=== PATIENT | male | born 1945 | race Caucasian/White ===

== ENCOUNTER → 2016-09-04 | Outpatient (CLI) | payer OTHER ==
[~2016-09-04] MED LIST: ASPCH81 PO; ASPI81TA28 PO; CARV25TA2 PO; CEFU500T16 PO; CHOL1000 PO; CITA40TA4 PO; CLOP1TAB15 PO; CLX20 PO; DOCU100C31 PO; FLV1 PO; FOLI1TAB7 PO; FRS/40 PO; HYDR0.5T PO; HYDR200T5 PO; IPRA1AER2 INH; IPRASOL4 INH; LEVO100T7 PO; LISI-725 PO; LISI10TA PO; LISI40TA PO; METH2.5T PO; MULT-506 PO; NTRGSL/4 UT; OXYC-57 PO; OXYC5TAB PO; PANT40TA PO; POTA20TA16 PO; PRED-301 PO; PRED10TA PO; SIMV20TA2 PO
--- NOTE | 2016-09-04 08:46 | DIAGNOSTIC IMAGING REPORT ---
DOUBLE CONTRAST BARIUM ESOPHAGRAM CLINICAL HISTORY: Dysphagia. Reported history of esophageal cancer with unspecified surgery. COMPARISON STUDY: No priors. TECHNIQUE: A standard air contrast barium esophagram is performed. Multiple spot images of the esophagus are acquired both upright and prone. FINDINGS: The patient swallowed barium and the barium pill without difficulty. The mucosal pattern is normal. There is no evidence of intrinsic or extrinsic mass lesion. No aspiration was seen. Mild to moderate dysmotility is seen in the distal third of the esophagus. The gastroesophageal junction distended normally. Gastroesophageal reflux was observed during the examination. There is a small to moderate hiatal hernia. Midline sternotomy wires are noted. Fluoroscopy time: 1 minute. Fluoroscopic images: 24 IMPRESSION: 1. There is no mucosal lesion identified by fluoroscopy. Correlation with the patient's oncologic history and endoscopy results will be required. 2. Gastroesophageal reflux is observed. 3. Esophageal dysmotility. 4. Hiatal hernia. Electronically signed by: Bobby Sandoval M.D. 09/04/2016 8:44 AM Dictated Date/Time: 09/04/2016 8:40 AM
== END | disposition home or self-care (01) ==
LOC: C.RAD 08:05
PROVIDERS: ATTEND Specialist
DX: R13.10 Dysphagia, unspecified (principal); K21.9 Gastro-esophageal reflux disease without esophagitis; K22.4 Dyskinesia of esophagus; K44.9 Diaphragmatic hernia without obstruction or gangrene

== ENCOUNTER → 2017-01-02 | Outpatient (CLI) | payer OTHER ==
[~2017-01-02] MED LIST changes: +CHOL1TAB42 PO; +PRED20TA PO
--- NOTE | 2017-01-02 09:32 | DIAGNOSTIC IMAGING REPORT ---
Aneurysm AORTIC ANEURYSM RETRO ABDELRAHMAN CLINICAL HISTORY: ABDOMINAL AORTIC ANEURYSM, INFRARENAL (ICD-I71.4) aneurysm TECHNIQUE: Ultrasound COMPARISON STUDY: CT dated 03/09/2016 FINDINGS: Somewhat limited exam due to the patient's large body habitus. Infrarenal abdominal aortic aneurysm having a maximum diameter of 5.4 cm. This is stable to only slightly increased in diameter compared to the prior study. Remainder the abdominal aorta is poorly seen. IMPRESSION: Infrarenal abdominal aortic aneurysm measuring 5.4 cm. This is slightly increased from the prior study of 5.2 cm and/or stable given differences in modality Electronically signed by: Boni Degroot M.D. 01/02/2017 9:30 AM Dictated Date/Time: 01/02/2017 9:26 AM
== END | disposition home or self-care (01) ==
LOC: C.ULTR 08:24
PROVIDERS: ATTEND Physician Assistant
DX: I71.4 Abdominal aortic aneurysm, without rupture (principal)

== ENCOUNTER 2017-01-21 15:13 | Inpatient (IN) | payer OTHER ==
[2017-01-21] VITALS (19 sets, daily range): BP systolic 124–180; BP diastolic 57–79; PULSE 41–54; TEMP 34.6–34.8; O2SAT 92–100; Ht 180.3 cm; Wt 128.0 kg
[~2017-01-21] VITALS: Ht 180.3 cm; Wt 128.0 kg
[~2017-01-21 15:13] MED LIST changes: -ASPI81TA28 PO; -CEFU500T16 PO; -CHOL1000 PO; -CHOL1TAB42 PO; -CITA40TA4 PO; -CLOP1TAB15 PO; -FOLI1TAB7 PO; -HYDR200T5 PO; -IPRASOL4 INH; -LISI-725 PO; -LISI40TA PO; -METH2.5T PO; -NTRGSL/4 UT; -OXYC-57 PO; -PANT40TA PO; -PRED10TA PO; -PRED20TA PO; -SIMV20TA2 PO; +VISIPAQUE IV PRN
[2017-01-21] MEDS ORDERED: SODIUM CHLORIDE 0.9% 1000ML 1,000 ML IV STA ×2 (15:21→16:42)
[2017-01-21] MEDS ORDERED: OPTIRAY 320 IV PRN (15:30)
[2017-01-21 15:32] LABS: ISTAT CREATININE 1.1 mg/dl (0.6-1.3); ISTAT HEMOGLOBIN 12.2 g/dl (14.0-18.0); ISTAT IONIZED CALCIUM 1.14 mmol/l (1.12-1.32)
[2017-01-21 15:36] LABS: BASO % 1.3 %; BASO ABS # 0.11 K/uL (0-0.2); COMPLETE YES; EOS % 6.4 %; HEMATOCRIT 36.4 % (42-52); IG% 0.2 %; LYMPH % 22.4 %; LYMPH ABS # 1.92 K/uL (1.2-3.4); MEAN CELL VOLUME 92.4 fL (80-100); MEAN CORPUSCULAR HEMOGLOBIN 28.7 pg (25-34); MEAN PLATELET VOLUME 9.9 fL (7.4-10.4); NEUT % 61.7 %; PLATELET COUNT 272 K/uL (130-400); RED BLOOD COUNT 3.94 M/uL (4.7-6.1); WHITE BLOOD COUNT 8.59 K/uL (4.8-10.8)
[2017-01-21 15:42] LABS: PARTIAL THROMBOPLASTIN RATIO 0.8; PROTHROMBIN TIME (PATIENT) 10.9 SECONDS (9.0-12.0)
--- NOTE | 2017-01-21 15:57 | DIAGNOSTIC IMAGING REPORT ---
CT CHEST COMBO ANGIOGRAPHY CT DOSE: CLINICAL HISTORY: Right facial droop. Possible stroke. Possible aortic dissection. Chest pain TECHNIQUE: Unenhanced images are obtained to the thorax. The patient was then scanned in a dynamic helical fashion during intravenous administration of 112 cc of Optiray 320. MIP images were acquired. COMPARISON STUDY: 02/19/2009 FINDINGS: Unenhanced images reveal no evidence of acute aortic hematoma. There are postsurgical changes of a midline sternotomy. There are coronary artery calcifications present. The heart is enlarged. There are postsurgical changes of a prior cholecystectomy. There is mild submucosal fat hypertrophy within the colon. There is a small hiatal hernia. There are no significant pleural effusions. There are no pulmonary artery filling defects to indicate acute pulmonary embolism. There are no pathologically enlarged axillary, mediastinal, or hilar lymph nodes. There is no evidence of thoracic aortic aneurysm. There is no evidence of thoracic aortic dissection. There are mild atheromatous changes present within the thoracic aorta. There are dependent atelectatic changes. There is lower lobe bronchial wall thickening with areas of mucous plugging. There is a 24 mm lung cyst within the right middle lobe. Additional scattered lung cysts are visualized. There is no lobar consolidation. Minor right middle lobe bronchial wall thickening is also visualized. IMPRESSION: 1. No evidence of thoracic aortic aneurysm or dissection. 2. No evidence of pathologic adenopathy 3. Lower lung zone bronchial wall thickening and mucous plugging Electronically signed by: Ishan Urbina M.D. 01/21/2017 3:50 PM Dictated Date/Time: 01/21/2017 3:43 PM
[2017-01-21 16:01] LABS: BUN/CREATININE RATIO 14.6 (10-20); CALCIUM 8.2 mg/dl (8.5-10.1); POTASSIUM 3.5 mmol/L (3.5-5.1)
[2017-01-21] MEDS ORDERED: HYDR200T5 PO (16:03)
[2017-01-21] MEDS ORDERED: ASPI81TA28 PO (16:03)
[2017-01-21] MEDS ORDERED: CITA40TA4 PO (16:03)
[2017-01-21] MEDS ORDERED: FOLI1TAB7 PO (16:03)
[2017-01-21] MEDS ORDERED: LISI-725 PO (16:03)
--- NOTE | 2017-01-21 16:03 | DIAGNOSTIC IMAGING REPORT ---
CT ANGIOGRAPHY HEAD COMBO CT DOSE: 2849.63 mGy.cm CLINICAL HISTORY: Right facial droop. Possible stroke. TECHNIQUE: Unenhanced images were obtained through the brain. The patient was then scanned in a dynamic helical fashion during intravenous administration of 1 12 cc of Optiray 320. MIP imaging was performed. COMPARISON STUDY: None. FINDINGS: Noncontrast images reveal no evidence of acute hemorrhage. There is no CT evidence of acute cortical infarction. There is an old lacunar infarct in the region the right basal ganglia. There are patchy white matter hypodensities, likely on a small vessel basis. CT angiography the brain reveals no evidence of aneurysm. There are no major intracranial branch occlusions. There are no findings to indicate dural venous sinus thrombosis. There are mild atheromatous changes present within the vertebrobasilar system. There are mild atheromatous calcifications within the carotids. IMPRESSION: 1. No evidence of major intracranial branch occlusion or stenosis 2. No evidence of aneurysm 3. No evidence of intracranial mass. 4. No evidence of acute hemorrhage. Electronically signed by: Ishan Urbina M.D. 01/21/2017 4:01 PM Dictated Date/Time: 01/21/2017 3:57 PM
[2017-01-21 16:06] LABS: CKMB/CK RATIO 0.9 (0-3.0)
[2017-01-21] MEDS ORDERED: LISI40TA PO (16:08)
[2017-01-21 16:11] LABS: ARTERIAL BLD GAS O2 SATURATION 96.6 % (90-95); ARTERIAL BLOOD GAS BASE EXCESS -1.7 mEq/L (-9-1.8); ARTERIAL BLOOD GAS HCO3 25 mmol/L (19-24); ARTERIAL BLOOD GAS PO2 94 mm/Hg (80-95); ARTERIAL BLOOD GAS pH 7.32 (7.35-7.45)
[2017-01-21 16:12] LABS: ALLEN TEST POS (POS); O2 ADMINISTRATION 2 L
--- NOTE | 2017-01-21 16:14 | DIAGNOSTIC IMAGING REPORT ---
CT ANGIOGRAM OF THE NECK CLINICAL HISTORY: Right-sided facial droop. COMPARISON STUDY: No priors. TECHNIQUE: Following the IV administration of 112 of Optiray 320, CT angiogram of the neck was performed from the aortic arch to the skull base. Images are reviewed in the axial, sagittal, and coronal planes. 3-D MIPS images are created and assessed. IV contrast was administered without complication. All measurements were calculated based on NASCET criteria. FINDINGS: Thoracic aorta: There is advanced atherosclerotic calcification of the thoracic ureter. Visualized portions of the thoracic aorta are normal in caliber. The aortic arch demonstrates 4-vessel arch anatomy. The left vertebral artery arises directly from the arch. Subclavian arteries: Widely patent bilaterally. Right carotid arterial system: The right common carotid artery is widely patent, as are the right internal and external carotid arteries. Atherosclerotic calcification is noted in the carotid bulb. Left carotid arterial system: The left common carotid artery is widely patent. There is less than 50% stenosis at the origin of the left internal carotid artery secondary to soft plaque. The remainder of the left internal carotid artery and the left external carotid artery are widely patent. Vertebral arteries: Widely patent bilaterally noting right sided dominance. There is a focal ectasia of the right vertebral artery at the skull base seen on axial image #180. This measures up to 6 mm. No vertebral artery dissection is seen. Intracranial vasculature: The visualized intracranial vessels at the skull base are patent. See report of CT angiogram of the brain performed concurrently for detailed intracranial findings. Jugular veins: Widely patent bilaterally. Brain parenchyma: Partially visualized brain parenchyma the skull base is within normal limits. Lung apices: Partially visualized upper lobe lung parenchyma appears clear. Soft tissues: The visualized pharyngeal soft tissues are normal in appearance noting angiographic phase technique. The oropharyngeal airway appears widely patent. The salivary and thyroid glands are normal in appearance. No cervical lymphadenopathy is seen. Skeletal structures: The skeletal structures are osteopenic. The visualized calvarium at the skull base appears intact. The imaged cervical spine is within normal limits noting cervical spondylosis. Sinuses and mastoids: Trace mucosal thickening is seen in the right maxillary antrum. The remaining visual lung paranasal sinuses are clear. The mastoid air cells are well pneumatized. IMPRESSION: 1. There is less than 50% narrowing at the origin of the left internal carotid artery secondary to soft plaque. 2. The carotid arteries otherwise widely patent, as are the vertebral arteries. 3. There is focal ectasia of the right vertebral artery at the skull base which measures up to 6 mm. 4. Additional findings as above. Electronically signed by: Bobby Sandoval M.D. 01/21/2017 4:13 PM Dictated Date/Time: 01/21/2017 3:59 PM
[2017-01-21] MEDS ORDERED: CLOP1TAB15 PO (16:40)
[2017-01-21] MEDS ORDERED: METH2.5T PO (16:41)
[2017-01-21] MEDS ORDERED: PANT40TA PO (16:43)
[2017-01-21] MEDS ORDERED: NTRGSL/4 UT (16:45)
[2017-01-21] MEDS ORDERED: SIMV20TA2 PO (16:45)
--- NOTE | 2017-01-21 17:11 | DIAGNOSTIC IMAGING REPORT ---
CT OF THE ABDOMEN AND PELVIS WITHOUT CONTRAST, STONE PROTOCOL CLINICAL HISTORY: Syncope, hypotension COMPARISON STUDY: CT of the abdomen and pelvis March 09, 2016. TECHNIQUE: Helical axial images of the abdomen and pelvis were obtained without IV or oral contrast according to renal stone protocol. FINDINGS: Unenhanced images of liver, spleen, adrenal glands, kidneys and pancreas are unremarkable on this exam. The gallbladder surgically absent. No pneumatosis, free air or portal venous gas is present. There is extensive atherosclerotic plaque of the abdominal aorta and major branch vessels. Note is made of a 5.8 x 4.9 cm infrarenal abdominal aortic aneurysm. There is an sac measures 5.8 cm in craniocaudal extent. There is a large adjacent retroperitoneal hematoma. The largest component measures 12.8 x 7.3 cm. This hematoma is located along anterior and right lateral aspects of the aorta and extends into the right infratemporal renal region. Active extravasation cannot be evaluated for on this unenhanced exam. The hemorrhage extends into the pelvis. This is consistent with a ruptured infrarenal aortic aneurysm. The caliber of the bilateral common and external iliac arteries is normal. Vessel patency cannot be assessed on this unenhanced exam. There are findings consistent with prior umbilical hernia repair with mesh. No suspicious osseous lesions are present. There is no bowel obstruction. There are fat-containing bilateral inguinal hernias. IMPRESSION: Findings consistent with a ruptured 5.8 x 4.9 cm infrarenal abdominal aortic aneurysm with large associated retroperitoneal hematoma. Findings were called to Dr. Palafox at time of dictation. Urgent vascular surgical consultation is recommended. Electronically signed by: Farhan Lynn M.D. 01/21/2017 5:10 PM Dictated Date/Time: 01/21/2017 5:03 PM
[2017-01-21] MEDS ORDERED: FENTANYL CITRATE INJ 50 MCG/1 ML 2 ML VIAL IV STA (17:12)
[2017-01-21] MEDS ORDERED: NiCARDipine IV 25 MG in SODIUM CHLORIDE 0.9% 250ML 240 ML IV STA (17:12)
[2017-01-21] MEDS ORDERED: MIDAZOLAM HCL 1 MG/ML 2ML VIAL ONE ×2 (17:37→19:48)
[2017-01-21] MEDS ORDERED: FENTANYL CITRATE INJ 50 MCG/1 ML 2 ML VIAL ONE (17:37)
[2017-01-21] MEDS ORDERED: KETAMINE HCL INJ 50 MG/ML 10 ML VIAL ONE (17:37)
[2017-01-21] MEDS: NiCARDipine IV 25 MG in SODIUM CHLORIDE 0.9% 250ML 240 ML IV PRN ×2 (17:38→17:42)
[2017-01-21] MEDS ORDERED: XYLOCAINE 1%/SOD BICARB 20 ML VIAL INFIL ONE (17:40)
--- NOTE | 2017-01-21 17:42 | Critical Care Consultation ---
Critical Care Consultation Date of Consultation: Jan 21, 2017. Attending Physician: Reason for Consultation: ICU Management History of Present Illness Mr Chung is a 71 yo M with known AAA, HTN, Diabetes, CAD, Hyperlipidemia, Hypothyroidism, CHF, and RA (which he is on MTX for) who presented to the ED initially after a syncopal episode, found to have a ruptured AAA with large retroperitoneal hematoma. History is mainly obtained from review of ED records as emergent procedures were being consented for and then completed during evaluation. On arrival to the ED, he had fluid resuscitation and felt better, with improvement in his back pain. An hour later, he became hypotensive, and he had back pain, and a CT abdomen and pelvis showed the ruptured AAA. He is currently in surgery having this repaired. Past Medical/Surgical History Medical Problems: (1) Type 2 diabetes (2) CAD (coronary artery disease) (3) HTN (hypertension) (4) Hyperlipidemia (5) Hypothyroidism (6) Removal of left great toe (7) Rheumatoid arthritis (8) Ventral hernia with bowel obstruction Surgical Problems: (1) Hx of CABG Family History Diabetes mellitus Social History Smoking Status: Former Smoker Drug Use: none Marital Status: Housing Status: lives with significant other Allergies Coded Allergies: Ranitidine (Verified Allergy, Unknown, UNSURE, 11/27/15) Adhesives (Verified Adverse Reaction, Unknown, TEARING OF SKIN, 11/27/15) Home Medications Scheduled Aspirin (Aspirin Ec), 81 MG PO QAM Carvedilol (Coreg), 25 MG PO BID Citalopram (Citalopram Hydrobromide), 40 MG PO QAM Clopidogrel (Plavix), 75 MG PO QAM Docusate Sodium (Docusate Sodium), 100 MG PO QAM Folic Acid (Folvite), 1 MG PO QAM Furosemide (Lasix), 40 MG PO BID Hydroxychloroquine Sulfate (Plaquenil), 400 MG PO DAILY Levothyroxine Sodium (Levothyroxine Sodium), 100 MCG PO DAILY Lisinopril (Zestril), 40 MG PO DAILY Methotrexate (Methotrexate), 25 MG PO WK Multivitamin (Multivitamin), 1 TAB PO QAM Pantoprazole (Protonix), 40 MG PO BID Potassium Ext Rel (Klor-Con), 20 MEQ PO QAM Prednisone (Prednisone), 5 MG PO QAM Simvastatin (Zocor), 20 MG PO QPM Scheduled PRN Nitroglycerin (Nitrostat), 0.4 MG UT UD PRN for Chest Pain Current Inpatient Medications Current Inpatient Medications Medications (Trade) Dose Ordered Sig/Kavya Route Start Time Stop Time Status Last Admin Dose Admin Ioversol (Optiray 320) 125 ml UD PRN IV 01/21/17 15:30 01/25/17 15:29 Sodium Chloride 1,000 ml @ 999 mls/hr Q1H1M STAT IV 01/21/17 16:42 01/21/17 17:42 01/21/17 16:42 999 MLS/HR Nicardipine HCl 25 mg/Sodium Chloride 250 ml @ 0 mls/hr Q0M PRN IV 01/21/17 17:30 02/20/17 17:29 Review of Systems ROS was unable to be obtained Physical Exam Date Time Temp Pulse Resp B/P (MAP) Pulse Ox O2 Delivery O2 Flow Rate FiO2 01/21/17 17:32 148/70 01/21/17 17:28 47 91 01/21/17 17:25 170/80 01/21/17 17:23 48 163/78 99 01/21/17 17:18 47 162/79 93 01/21/17 17:13 46 100 01/21/17 17:08 46 01/21/17 17:03 47 99 01/21/17 17:02 153/77 01/21/17 17:00 163/77 01/21/17 17:00 48 20 163/77 99 Nasal Cannula 2.0 01/21/17 16:43 45 98 01/21/17 16:43 48 20 150/63 98 Nasal Cannula 2.0 01/21/17 16:42 150/63 01/21/17 16:38 51 98 01/21/17 16:33 47 97/63 100 01/21/17 16:33 48 16 97/63 99 Nasal Cannula 2.0 01/21/17 16:28 48 01/21/17 16:25 36.6 01/21/17 16:23 51 01/21/17 16:18 47 99 01/21/17 16:17 96/50 01/21/17 16:17 48 16 96/50 100 Nasal Cannula 2.0 01/21/17 16:13 48 96 01/21/17 16:08 47 99 01/21/17 16:06 48 01/21/17 16:03 48 20 116/57 100 Nasal Cannula 2.0 01/21/17 16:03 49 100 01/21/17 16:02 116/57 01/21/17 16:00 91/47 01/21/17 15:59 46 20 91/47 98 Nasal Cannula 2.0 01/21/17 15:58 50 100 01/21/17 15:53 48 95 01/21/17 15:46 Nasal Cannula 2.0 01/21/17 15:44 88 Room Air 01/21/17 15:39 112/54 01/21/17 15:38 50 20 112/54 92 Room Air 01/21/17 15:13 56 20 101/54 91 Room Air Physical examination was not completed by myself. Please refer to Dr. Renteria' s addendum regarding examination findings. Laboratory Results Last 24 Hours Test 01/21/17 15:00 01/21/17 15:19 01/21/17 15:52 01/21/17 16:00 White Blood Count 8.59 K/uL Red Blood Count 3.94 M/uL Hemoglobin 11.3 g/dL Hematocrit 36.4 % Mean Corpuscular Volume 92.4 fL Mean Corpuscular Hemoglobin 28.7 pg Mean Corpuscular Hemoglobin Concent 31.0 g/dl Platelet Count 272 K/uL Mean Platelet Volume 9.9 fL Neutrophils (%) (Auto) 61.7 % Lymphocytes (%) (Auto) 22.4 % Monocytes (%) (Auto) 8.0 % Eosinophils (%) (Auto) 6.4 % Basophils (%) (Auto) 1.3 % Neutrophils # (Auto) 5.30 K/uL Lymphocytes # (Auto) 1.92 K/uL Monocytes # (Auto) 0.69 K/uL Eosinophils # (Auto) 0.55 K/uL Basophils # (Auto) 0.11 K/uL RDW Standard Deviation 54.3 fL RDW Coefficient of Variation 16.4 % Immature Granulocyte % (Auto) 0.2 % Immature Granulocyte # (Auto) 0.02 K/uL Prothrombin Time 10.9 SECONDS Prothromb Time International Ratio 1.0 Activated Partial Thromboplast Time 19.8 SECONDS Partial Thromboplastin Ratio 0.8 Sodium Level 145 mmol/L Potassium Level 3.5 mmol/L Chloride Level 107 mmol/L Carbon Dioxide Level 30 mmol/L Anion Gap 8.0 mmol/L 17.0 mmol/L Blood Urea Nitrogen 15 mg/dl Creatinine 1.00 mg/dl Est Creatinine Clear Calc Drug Dose 95.5 ml/min Estimated GFR () 88.0 Estimated GFR (Non- 75.9 BUN/Creatinine Ratio 14.6 Random Glucose 132 mg/dl Calcium Level 8.2 mg/dl Total Bilirubin 0.5 mg/dl Direct Bilirubin 0.2 mg/dl Aspartate Amino Transf (AST/SGOT) 21 U/L Alanine Aminotransferase (ALT/SGPT) 26 U/L Alkaline Phosphatase 74 U/L Total Creatine Kinase 181 U/L Creatine Kinase MB 1.6 ng/ml Creatine Kinase MB Ratio 0.9 Troponin I 0.025 ng/ml Total Protein 6.3 gm/dl Albumin 2.8 gm/dl Bedside Hemoglobin 12.2 g/dl Bedside Hematocrit 36 % Bedside Sodium 143 mEq/L Bedside Potassium 3.6 mEq/L Bedside Chloride 103 mEq/L Bedside Total CO2 28 mEq/l Bedside Blood Urea Nitrogen 16 mg/dl Bedside Creatinine 1.1 mg/dl Bedside Glucose (other) 132 mg/dl Bedside Ionized Calcium (Sherrie) 1.14 mmol/l Bedside Lactic Acid Venous 2.10 mmol/L Arterial Blood pH 7.32 Arterial Blood Partial Pressure CO2 49 mmHg Arterial Blood Partial Pressure O2 94 mm/Hg Arterial Blood HCO3 25 mmol/L Arterial Blood Oxygen Saturation 96.6 % Arterial Blood Base Excess -1.7 mEq/L Arterial Blood Gas Delivery 2 L Peter Test POS Diagnostic Results CT ABD/PELVIS: IMPRESSION: Findings consistent with a ruptured 5.8 x 4.9 cm infrarenal abdominal aortic aneurysm with large associated retroperitoneal hematoma. Findings were called to Dr. Palafox at time of dictation. Urgent vascular surgical consultation is recommended. Assessment & Plan COURSE OF EVENTS 5:25pm: Dr Renteria was informed about the patient and we arrived in the ED and discussed with Dr Palafox. Dr Fernandez was already notified and on his way. 5:32pm: The pt was consented for blood transfusion, central line access, bronchoscopy, arterial line. Nicardipine drip was also started at 5mg/hour. 5:39pm: Dr Fernandez arrived as did Dr Staples from anesthesiology. Dr Fernandez consented the patient for surgery. Nicardipine drip was increased to 7mg/hour. Dr Renteria placed R subclavian line. His BP was 148/70 and HR 66. 5:43: Nicardipine was increased to 10, and he was given 50mcg of Fentanyl. He was then taken to the OR. Please refer to OR documentation. A/P 71 yo M with multiple co-morbidities (CAD s/p CABG, T2DM, hyperlipidemia, hypertension) presents with ruptured AAA. CVS: Nicardipine drip started while in ED Will monitor post-operatively in ICU R subclavian line inserted by Dr Renteria NEURO: Received Fentanyl, will be intubated for surgery GI: NPO RESP: Will monitor upon arrival in ICU DISPO: Surgery Resident Physician Supervision Note: Dr. Burnett was resident physician during care of patient. I separately evaluated patient and did history and exam. I discussed the case with the resident and generally agree with the findings and plan. Emergently placed a right-sided subclavian line, consented patient and family for possible ICU procedures. Increased nicardipine for blood pressure control, patient currently bradycardic. To the OR emergently with Dr. Fernandez. I have personally spent 10 minutes of critical care time in the direct management of this patient. This is a life/limb threatening event. This includes time spent evaluating patient, direct bedside care, chart review, placing orders, interpretation of diagnostic studies, discussion with consultants, patient, and family members, as well as other required patient management activities. This time is exclusive of all separately billable procedures, and teaching time and separate from and in addition to any other critical care service time. Documented By: Martin Renteria DO Resident Tracking Resident Involvement: Resident Care Provided Care Provided: Adult [facility]
[2017-01-21] MEDS ORDERED: FENTANYL CITRATE INJ 50 MCG/1 ML 2 ML VIAL IV ONE (17:45)
[2017-01-21] MEDS ORDERED: GELATIN SPONGE SZ 100 ONE (17:46)
[2017-01-21] MEDS ORDERED: CEFAZOLIN SOD 1 GM VIAL ONE ×2 (17:47→19:18)
[2017-01-21] MEDS ORDERED: THROMBIN 5000 UNITS KIT ONE (17:47)
[2017-01-21] MEDS ORDERED: HEPARIN SOD (PORCINE) 1000 UNIT/ML 10 ML VIAL ONE ×2 (17:47→17:59)
--- NOTE | 2017-01-21 17:58 | History and Physical ---
History & Physical Date of Service Jan 21, 2017. History & Physical Patient with ruptured AAA. Repair was recommended. I have discussed the risks options and benefits of the procedure with the patient and family. The patient and family understands the risks options and benefits and agrees to the procedure.
--- NOTE | 2017-01-21 18:02 | DIAGNOSTIC IMAGING REPORT ---
CHEST ONE VIEW PORTABLE CLINICAL HISTORY: post subclavian COMPARISON STUDY: Chest CT performed earlier today. FINDINGS: There has been interval placement of a right subclavian central line. Tip projects over the confluence of the right subclavian and internal jugular veins. There is no pneumothorax although sensitivity is diminished on this supine exam.. There are median sternotomy wires. Moderate cardiomegaly is noted without evidence of pulmonary edema. Mild bibasilar opacities favor atelectasis. There is mild motion artifact. IMPRESSION: No pneumothorax following placement of right subclavian central line. Catheter tip projects over the confluence of right subclavian and internal jugular veins. Electronically signed by: Farhan Lynn M.D. 01/21/2017 6:01 PM Dictated Date/Time: 01/21/2017 5:59 PM
--- NOTE | 2017-01-21 18:15 | EMERGENCY ROOM VISIT NOTE ---
History Report prepared by Albert: Landry Savage Under the Supervision of: Dr. Yuri Palafox M.D. First contact with patient: 15:12 Chief Complaint: SYNCOPE Stated Complaint: SYNCOPE, CHEST PAIN History of Present Illness The patient is a 71 year old male who presents to the Emergency Room with complaints of a syncopal episode occurring just prior to arrival. Per EMS, the patient had a witnessed syncopal event in which he turned blue. The patient has no history of diabetes, or stroke. He has a history of hypertension, and hyperlipidemia. He is on blood thinners, but is not sure which one. Per EMS, the patient has been experiencing worsening right sided weakness as well. The patient denies any chest pain, abdominal pain, or headache. He currently complains of centralized back pain. Source of History: patient, EMS Onset: Just prior to arrival Quality: other (syncope) Timing: other (episode) Associated Symptoms: + back pain (centralized), No headache, No chest pain, No abdominal pain Note: Additional symptoms: The patient turned blue during the syncopal episode. Review of Systems See HPI for pertinent positives & negatives. A total of 10 systems reviewed and were otherwise negative. Past Medical & Surgical Medical Problems: (1) Borderline diabetes (2) CAD (coronary artery disease) (3) HTN (hypertension) (4) Hyperlipidemia (5) Hypothyroidism (6) Remoal of left great toe (7) Rheumatoid arthritis (8) Ventral hernia with bowel obstruction Surgical Problems: (1) Hx of CABG Family History Diabetes mellitus Social History Smoking Status: Former Smoker Drug Use: none Marital Status: Housing Status: lives with significant other Current/Historical Medications Scheduled Aspirin (Aspirin Ec), 81 MG PO QAM Carvedilol (Coreg), 25 MG PO BID Citalopram (Citalopram Hydrobromide), 40 MG PO QAM Clopidogrel (Plavix), 75 MG PO QAM Docusate Sodium (Docusate Sodium), 100 MG PO QAM Folic Acid (Folvite), 1 MG PO QAM Furosemide (Lasix), 40 MG PO BID Hydroxychloroquine Sulfate (Plaquenil), 400 MG PO DAILY Levothyroxine Sodium (Levothyroxine Sodium), 100 MCG PO DAILY Lisinopril (Zestril), 40 MG PO DAILY Methotrexate (Methotrexate), 25 MG PO WK Multivitamin (Multivitamin), 1 TAB PO QAM Pantoprazole (Protonix), 40 MG PO BID Potassium Ext Rel (Klor-Con), 20 MEQ PO QAM Prednisone (Prednisone), 5 MG PO QAM Simvastatin (Zocor), 20 MG PO QPM Scheduled PRN Nitroglycerin (Nitrostat), 0.4 MG UT UD PRN for Chest Pain Allergies Coded Allergies: Ranitidine (Verified Allergy, Unknown, UNSURE, 11/27/15) Adhesives (Verified Adverse Reaction, Unknown, TEARING OF SKIN, 11/27/15) Physical Exam Vital Signs Date Time Temp Pulse Resp B/P (MAP) Pulse Ox O2 Delivery O2 Flow Rate FiO2 01/21/17 20:25 61 14 195/92 (134) 100 Mechanical Ventilator 01/21/17 20:20 57 14 156/62 (100) 100 Mechanical Ventilator NIBP 01/21/17 20:15 34.6 55 14 172/80 100 Mechanical Ventilator 01/21/17 20:11 100 01/21/17 18:10 36.6 74 20 165/70 84 01/21/17 17:52 74 165/70 84 01/21/17 17:47 51 01/21/17 17:43 161/68 01/21/17 17:42 62 01/21/17 17:37 57 90 01/21/17 17:32 148/70 01/21/17 17:28 47 91 01/21/17 17:25 170/80 01/21/17 17:23 48 163/78 99 01/21/17 17:18 47 162/79 93 01/21/17 17:13 46 100 01/21/17 17:08 46 01/21/17 17:03 47 99 01/21/17 17:02 153/77 01/21/17 17:00 163/77 01/21/17 17:00 48 20 163/77 99 Nasal Cannula 2.0 01/21/17 16:43 45 98 01/21/17 16:43 48 20 150/63 98 Nasal Cannula 2.0 01/21/17 16:42 150/63 01/21/17 16:38 51 98 01/21/17 16:33 47 97/63 100 01/21/17 16:33 48 16 97/63 99 Nasal Cannula 2.0 01/21/17 16:28 48 01/21/17 16:25 36.6 01/21/17 16:23 51 01/21/17 16:18 47 99 01/21/17 16:17 96/50 01/21/17 16:17 48 16 96/50 100 Nasal Cannula 2.0 01/21/17 16:13 48 96 01/21/17 16:08 47 99 01/21/17 16:06 48 01/21/17 16:03 48 20 116/57 100 Nasal Cannula 2.0 01/21/17 16:03 49 100 01/21/17 16:02 116/57 01/21/17 16:00 91/47 01/21/17 15:59 46 20 91/47 98 Nasal Cannula 2.0 01/21/17 15:58 50 100 01/21/17 15:53 48 95 01/21/17 15:46 Nasal Cannula 2.0 01/21/17 15:44 88 Room Air 01/21/17 15:39 112/54 01/21/17 15:38 50 20 112/54 92 Room Air 01/21/17 15:13 56 20 101/54 91 Room Air Physical Exam GENERAL: Patient is acutely ill appearing, moderate distress, diaphoretic. HEENT: No acute trauma, normocephalic atraumatic, mucous membranes moist, no nasal congestion, no scleral icterus.Pale conjunctiva. NECK: No stridor, no adenopathy, no meningismus, trachea is midline. LUNGS: No dyspnea. No wheeze, no rhonchi. Decreased breath sounds at bases HEART: Bradycardic rate with a regular rhythm. No murmurs, rubs, gallops appreciated. ABDOMEN: Soft, nontender, bowel sounds positive, no masses appreciated, no peritonitis. BACK: No midline tenderness, no CVA tenderness EXTREMITIES: Normal motion all extremities, no cyanosis, no edema. NEUROLOGIC: Mild right facial droop overcome with voluntary muscles. Slightly slurred speech. 4/5 strength of RUE. 5/5 strength of the right hand. 5/5 strength in the entire LUE. Bilateral leg weakness which is non-specific. SKIN: No rash, no jaundice, no diaphoresis. Clammy diaphoretic skin. Medical Decision & Procedures ER Provider Diagnostic Interpretation: Radiology results and stated below per my review and radiologist interpretation: CT ANGIOGRAPHY HEAD COMBO FINDINGS: Noncontrast images reveal no evidence of acute hemorrhage. There is no CT evidence of acute cortical infarction. There is an old lacunar infarct in the region the right basal ganglia. There are patchy white matter hypodensities, likely on a small vessel basis. CT angiography the brain reveals no evidence of aneurysm. There are no major intracranial branch occlusions. There are no findings to indicate dural venous sinus thrombosis. There are mild atheromatous changes present within the vertebrobasilar system. There are mild atheromatous calcifications within the carotids. IMPRESSION: 1. No evidence of major intracranial branch occlusion or stenosis 2. No evidence of aneurysm 3. No evidence of intracranial mass. 4. No evidence of acute hemorrhage. Electronically signed by: Ishan Urbina M.D. CT CHEST COMBO ANGIOGRAPHY FINDINGS: Unenhanced images reveal no evidence of acute aortic hematoma. There are postsurgical changes of a midline sternotomy. There are coronary artery calcifications present. The heart is enlarged. There are postsurgical changes of a prior cholecystectomy. There is mild submucosal fat hypertrophy within the colon. There is a small hiatal hernia. There are no significant pleural effusions. There are no pulmonary artery filling defects to indicate acute pulmonary embolism. There are no pathologically enlarged axillary, mediastinal, or hilar lymph nodes. There is no evidence of thoracic aortic aneurysm. There is no evidence of thoracic aortic dissection. There are mild atheromatous changes present within the thoracic aorta. There are dependent atelectatic changes. There is lower lobe bronchial wall thickening with areas of mucous plugging. There is a 24 mm lung cyst within the right middle lobe. Additional scattered lung cysts are visualized. There is no lobar consolidation. Minor right middle lobe bronchial wall thickening is also visualized. IMPRESSION: 1. No evidence of thoracic aortic aneurysm or dissection. 2. No evidence of pathologic adenopathy 3. Lower lung zone bronchial wall thickening and mucous plugging Electronically signed by: Ishan Urbina M.D. CT ANGIOGRAM OF THE NECK FINDINGS: Thoracic aorta: There is advanced atherosclerotic calcification of the thoracic ureter. Visualized portions of the thoracic aorta are normal in caliber. The aortic arch demonstrates 4-vessel arch anatomy. The left vertebral artery arises directly from the arch. Subclavian arteries: Widely patent bilaterally. Right carotid arterial system: The right common carotid artery is widely patent, as are the right internal and external carotid arteries. Atherosclerotic calcification is noted in the carotid bulb. Left carotid arterial system: The left common carotid artery is widely patent. There is less than 50% stenosis at the origin of the left internal carotid artery secondary to soft plaque. The remainder of the left internal carotid artery and the left external carotid artery are widely patent. Vertebral arteries: Widely patent bilaterally noting right sided dominance. There is a focal ectasia of the right vertebral artery at the skull base seen on axial image #180. This measures up to 6 mm. No vertebral artery dissection is seen. Intracranial vasculature: The visualized intracranial vessels at the skull base are patent. See report of CT angiogram of the brain performed concurrently for detailed intracranial findings. Jugular veins: Widely patent bilaterally. Brain parenchyma: Partially visualized brain parenchyma the skull base is within normal limits. Lung apices: Partially visualized upper lobe lung parenchyma appears clear. Soft tissues: The visualized pharyngeal soft tissues are normal in appearance noting angiographic phase technique. The oropharyngeal airway appears widely patent. The salivary and thyroid glands are normal in appearance. No cervical lymphadenopathy is seen. Skeletal structures: The skeletal structures are osteopenic. The visualized calvarium at the skull base appears intact. The imaged cervical spine is within normal limits noting cervical spondylosis. Sinuses and mastoids: Trace mucosal thickening is seen in the right maxillary antrum. The remaining visual lung paranasal sinuses are clear. The mastoid air cells are well pneumatized. IMPRESSION: 1. There is less than 50% narrowing at the origin of the left internal carotid artery secondary to soft plaque. 2. The carotid arteries otherwise widely patent, as are the vertebral arteries. 3. There is focal ectasia of the right vertebral artery at the skull base which measures up to 6 mm. 4. Additional findings as above. Electronically signed by: Bobby Sandoval M.D. CT OF THE ABDOMEN AND PELVIS WITHOUT CONTRAST, STONE PROTOCOL FINDINGS: Unenhanced images of liver, spleen, adrenal glands, kidneys and pancreas are unremarkable on this exam. The gallbladder surgically absent. No pneumatosis, free air or portal venous gas is present. There is extensive atherosclerotic plaque of the abdominal aorta and major branch vessels. Note is made of a 5.8 x 4.9 cm infrarenal abdominal aortic aneurysm. There is an sac measures 5.8 cm in craniocaudal extent. There is a large adjacent retroperitoneal hematoma. The largest component measures 12.8 x 7.3 cm. This hematoma is located along anterior and right lateral aspects of the aorta and extends into the right infratemporal renal region. Active extravasation cannot be evaluated for on this unenhanced exam. The hemorrhage extends into the pelvis. This is consistent with a ruptured infrarenal aortic aneurysm. The caliber of the bilateral common and external iliac arteries is normal. Vessel patency cannot be assessed on this unenhanced exam. There are findings consistent with prior umbilical hernia repair with mesh. No suspicious osseous lesions are present. There is no bowel obstruction. There are fat-containing bilateral inguinal hernias. IMPRESSION: Findings consistent with a ruptured 5.8 x 4.9 cm infrarenal abdominal aortic aneurysm with large associated retroperitoneal hematoma. Findings were called to Dr. Palafox at time of dictation. Urgent vascular surgical consultation is recommended. Electronically signed by: Farhan Lynn M.D. Laboratory Results Test 01/21/17 15:00 01/21/17 15:52 01/21/17 16:00 01/21/17 19:39 Est Creatinine Clear Calc Drug Dose 95.5 ml/min Total Bilirubin 0.5 mg/dl (0.2-1) Direct Bilirubin 0.2 mg/dl (0-0.2) Aspartate Amino Transf (AST/SGOT) 21 U/L (15-37) Alanine Aminotransferase (ALT/SGPT) 26 U/L (12-78) Alkaline Phosphatase 74 U/L (45-117) Total Creatine Kinase 181 U/L (39-308) Creatine Kinase MB 1.6 ng/ml (0.5-3.6) Creatine Kinase MB Ratio 0.9 (0-3.0) Troponin I 0.025 ng/ml (0-0.045) Total Protein 6.3 gm/dl (6.4-8.2) Albumin 2.8 gm/dl (3.4-5.0) Bedside Lactic Acid Venous 2.10 mmol/L (0.90-1.70) Arterial Blood pH 7.32 (7.35-7.45) Arterial Blood Partial Pressure CO2 49 mmHg (35-46) Arterial Blood Partial Pressure O2 94 mm/Hg (80-95) Arterial Blood HCO3 25 mmol/L (19-24) Arterial Blood Oxygen Saturation 96.6 % (90-95) Arterial Blood Base Excess -1.7 mEq/L (-9-1.8) Arterial Blood Gas Delivery 2 L Peter Test POS (POS) Bedside Hemoglobin 8.2 g/dl (14.0-18.0) Bedside Hematocrit 24 % (42-52) Bedside Sodium 141 mEq/L (135-144) Bedside Potassium 3.6 mEq/L (3.3-5.0) Bedside Chloride 107 mEq/L (101-112) Bedside Total CO2 23 mEq/l (24-31) Bedside Blood Urea Nitrogen 13 mg/dl (7-18) Bedside Creatinine 0.6 mg/dl (0.6-1.3) Bedside Glucose (other) 126 mg/dl (70-99) Bedside Ionized Calcium (Sherrie) 0.99 mmol/l (1.12-1.32) Laboratory results as reviewed by me. Medications Administered Medications (Trade) Dose Ordered Sig/Kavya Route Start Time Stop Time Status Last Admin Dose Admin Sodium Chloride 1,000 ml @ 999 mls/hr Q1H1M STAT IV 01/21/17 15:21 01/21/17 16:21 DC 01/21/17 15:21 999 MLS/HR Sodium Chloride 1,000 ml @ 999 mls/hr Q1H1M STAT IV 01/21/17 16:42 01/21/17 17:42 DC 01/21/17 16:42 999 MLS/HR Fentanyl Citrate (Fentanyl Inj) 50 mcg NOW STAT IV 01/21/17 17:12 01/21/17 17:13 DC 01/21/17 17:50 50 MCG Nicardipine HCl 25 mg/Sodium Chloride 250 ml @ 0 mls/hr Q0M STAT IV 01/21/17 17:12 01/21/17 17:13 DC 01/21/17 17:24 50 MLS/HR Nicardipine HCl 25 mg/Sodium Chloride 250 ml @ 0 mls/hr Q0M PRN IV 01/21/17 17:30 02/20/17 17:29 01/21/17 17:42 100 MLS/HR Nitroglycerin/ Dextrose 250 ml @ 0 mls/hr Q0M PRN IV 01/21/17 20:21 02/20/17 20:20 01/21/17 20:54 6 MLS/HR ECG Indication: syncope Rate (beats per minute): 49 Rhythm: sinus bradycardia Findings: 1st degree AV block, prolonged QT, no ectopy, other (No STEMI) Change: Similar to previous ED Course 1513: The patient was evaluated in room A1. A complete history and physical exam was performed. 1520: I requested two large IVs and fluid resuscitation 1521: Ordered Sodium Chloride 1000 ml @ 999 mls/hr. 1543: I reassessed the patient. He is feeling much better. His blood pressure has improved, and he is no longer diaphoretic. His back pain has improved and he does not have any further facial droop. The patient continues to deny abdominal pain, lower back pain, or pain radiating to his legs. Bedside ultrasound of the abdomen revealed no free fluid with a moderate aortic aneurysm noted. 1621: Upon reevaluation, the patient is resting comfortably. Discussed results and treatment plan with the patient. He verbalized understanding and agreement with the treatment plan. The patient will be evaluated for further management. 1641: I checked in on the patient. His blood pressure has begun to drop, and he is complaining of back pain. I ordered a CT abdomen/pelvis. 1642: Ordered Sodium Chloride 1000 mL @ 999 mL/hr IV. 1712: Ordered Nicardipine HCl 25 mg/NSS 250 mL, Fentanyl Inj 50 mcg IV. 1940: Dr. Fernandez will take the patient to the OR. Medical Decision Differential: Sepsis, Infectious (UTI/Pneumonia/Meningitis/etc), Metabolic/ Electrolyte Abnormality, Cardiac, Hepatic, Endocrine, Toxicologic, Neurologic, amongst other pathologies entertained. Medication Reconciliation: I attest that I have personally reviewed the patient 's current medication list. Blood pressure screening: Patient was found to have normal blood pressure on screening and does not require follow-up. 71 yr old male arrive via EMS for evaluation s/p syncope with upper chest/back discomfort. EMS command by me prior to arrival. Noted right facial droop and mild right arm weakness on arrival. He is acutely ill appearing, diaphoretic and looks near code. Immediately 2 IVs placed, NSS bolus, Cr obtained and sent directly to CT for CTA head/neck/chest. Thinking being without any abdominal pain, low back pain and his upper symptoms this was not intraabdominal in nature (of note, known 5cm AAA from CT last year noted in record/from family while patient already finishing scan at CT). Returned from CT with complete resolution of symptoms, feeling well and in no distress. Bedside US abdomen by me with AAA though no significant free fluid appreciated nor other acute findings. He is feeling well with BP running upper 90s. Bradycardia chronic and not changed from previous. Labs unremarkable. EKG without ischemia. Stable and in no distress. Hospitalist consulted for evaluation and monitoring given syncope and mild hypotension. Shortly there-after patient started complaining of severe low back with diaphoresis, HYPERtension and severely ill appearing. Immediately sent back to CT with evidence of dissection. Immediately contacted Vac Surg, CCM, and hospitalist to make them aware. Crossmatch for 4 Units. Fentanyl IV for pain, nicardipine for BP control with goal SBP in 90s. ICU down to place right subclavian line for increased access. Vascular surgery in to take to OR for definitive treatment. Family made aware throughout of findings, treatment, including the high risk mortality, especially given his multiple medical comorbidities, of which they are aware ( furthermore daughter is nurse). Consults Time Called: 1632 Consulting Physician[facility] [place] Returned Call: 1644 Discussed the patient's case. The patient will be evaluated for further treatment and disposition. Additional Consults: Time Called: 1659 Consulted Physician: Dr. Fernandez -Vascular Surgery Returned Call: [phone] Additional Comments: Discussed the patient's case. Dr. Fernandez will come evaluate the patient. Time Called: 1705 Consulted Physician: Dr. Renteria -[facility] [place] Returned Call: 1710 Additional Comments: Discussed the patient's case. Dr. Renteria recommends that the patient be put on a nicardipine drip to keep the patient's blood pressure in the 90's. Impression Primary Impression: Ruptured abdominal aortic aneurysm (AAA) Additional Impressions: Syncope Hypotension Altered mental status Weakness on right side of face Critical Care I have personally spent greater than 90 minutes of critical care time in the direct management of this patient. This was a life/limb threatening event. This includes time spent evaluating patient, direct bedside care, chart review, placing orders, interpretation of diagnostic studies, discussion with consultants, patient, and family members, as well as other required patient management activities. This 90 minutes is in excess of all separately billable procedures. Scribe Attestation The scribe's documentation has been prepared under my direction and personally reviewed by me in its entirety. I confirm that the note above accurately reflects all work, treatment, procedures, and medical decision making performed by me. Departure Information Dispostion Being Evaluated By Hospitalist Qian Scott-C (PCP) Patient Instructions My [facility] Health Problem Qualifiers
[2017-01-21] MEDS ORDERED: VASOPRESSIN 20 UNIT/ML VIAL ONE (19:18)
[2017-01-21] MEDS ORDERED: NOREPINEPHRINE BITARTRATE 1 MG/ML 4 ML VIAL ONE (19:18)
[2017-01-21] MEDS ORDERED: ROCURONIUM BROMIDE 10 MG/ML 5 ML VIAL ONE (19:18)
[2017-01-21] MEDS ORDERED: SUCCINYLCHOLINE 100MG/5ML SYR IV ONE (19:18)
[2017-01-21] MEDS ORDERED: PROPOFOL IV EMULSION 10 MG/ML 20 ML VIAL IV ONE (19:18)
[2017-01-21] MEDS ORDERED: SODIUM CHLORIDE 0.9% INJ 10 ML VIAL ONE (19:18)
[2017-01-21] MEDS ORDERED: EpHEDrine SULFATE 50MG/5ML SYR ONE (19:18)
[2017-01-21] MEDS ORDERED: LIDOCAINE HCL 2% 2 ML VIAL (20MG/ML) ONE (19:18)
[2017-01-21] MEDS ORDERED: NITROGLYCERIN/D5W 100 MCG/ML BTL ONE (19:18)
--- NOTE | 2017-01-21 20:20 | [facility] Post Operative Brief Note ---
Immediate Operative Summary Operative Date Jan 21, 2017. Pre-Operative Diagnosis Ruptured abdominal aortic aneurism Post-Operative Diagnosis Ruptured abdominal aortic aneurism Procedure(s) Performed Ruptured Percutaneous Abdominal Aortic Aneurysm Repair, Bilateral cannulation of aorta, Mechanical closure bilateral femoral artery coude urethral catheter insertion Surgeon Dr. Fernandez Storage Battery Inspector Surgeon(s) Breann Shah MD Estimated Blood Loss 150ml Findings Possibly type II endoleak Specimens None Anesthesia Gen Complication(s) None Disposition Surgical ICU
[2017-01-21] MEDS ORDERED: NITROGLYCERIN/D5W 100 MCG/ML 250 ML IV PRN (20:21)
[2017-01-21] MEDS ORDERED: PHENYLEPHRINE HCL INJ 20 MG in DEXTROSE 5% 500ML 500 ML IV PRN (20:21)
[2017-01-21] MEDS ORDERED: PROPOFOL IV EMULSION 10 MG/ML 100 ML VIAL IV STA (20:38)
[2017-01-21 20:42] LABS: ISTAT CREATININE 0.6 mg/dl (0.6-1.3); ISTAT HEMOGLOBIN 8.2 g/dl (14.0-18.0); ISTAT IONIZED CALCIUM 0.99 mmol/l (1.12-1.32)
[2017-01-21] MEDS ORDERED: FENTANYL CITRATE INJ 50 MCG/1 ML 2 ML VIAL IV PRN (20:45)
[2017-01-21] MEDS ORDERED: PROPOFOL IV EMULSION 10 MG/ML 100 ML VIAL IV ONE (20:46)
[2017-01-21] MEDS ORDERED: PROPOFOL IV EMULSION 10 MG/ML 100 ML VIAL IV PRN (21:00)
[2017-01-21] MEDS: D5W AND 1/2NSS 1,000 ML IV SCH (21:15)
[2017-01-21 21:27] LABS: ISTAT ARTERIAL BLOOD GAS HCO3 28 meq/L (19-24); ISTAT ARTERIAL BLOOD GAS PCO2 45 mmHg (35-46); ISTAT ARTERIAL BLOOD GAS PO2 403 mmHg (80-95); ISTAT ARTERIAL BLOOD GAS pH 7.39 (7.35-7.45); ISTAT CARBON DIOXIDE 30 mEq/l (24-31); ISTAT DELIVERY SYSTEM Ventilator; ISTAT FIO2 100 %; ISTAT PEEP 5; ISTAT RATE 14; ISTAT SITE Art Line; Vt 550
--- NOTE | 2017-01-21 21:30 | Critical Care Progress Note ---
Critical Care Progress Note Date of Service Jan 21, 2017. Critical Care Progress Note Pt arrived from OR intubated, hypertensive (180's-200's SBP) and bradycardic(45- 50's). A nitroglycerin drip has been started and sedation with propofol and PRN Fentanyl ordered. Vent settings were switched from 100% FIO2 to AC 14/550/5 /50% after Abg results of 7.393/45.1/403/[address] Fernandez who requested the pt lay flat with minimal rolling for at minimum 4 hours. He set goal SBP <180 preferred <160. I have spoken to nursing and requested that SBP remain 140-160 and to titrate nitro accordingly. Jim has ordered 2u of PRBCs to transfuse as well as D5W 0.045NSS at 150mL/ hr. He specified that he is to be called with any and all changes over the course of the night. Family has been brought back and questions answered. Will avoid heart rate lower medications. Monitor BP closely Plan to do a weaning trial in the morning and extubate if possible. I have personally evaluated and examined this patient. I agree with assessment and plan of Ashlie Sexton PA-C. Discussed management plan.
[2017-01-21 21:37] LABS: BASO % 0.5 %; BASO ABS # 0.05 K/uL (0-0.2); EOS % 2.3 %; HEMATOCRIT 31.2 % (42-52); IG% 0.3 %; LYMPH % 6.3 %; LYMPH ABS # 0.67 K/uL (1.2-3.4); MEAN CELL VOLUME 91.2 fL (80-100); MEAN CORPUSCULAR HEMOGLOBIN 28.7 pg (25-34); MEAN PLATELET VOLUME 9.4 fL (7.4-10.4); MONO % 6.8 %; NEUT % 83.8 %; PLATELET COUNT 147 K/uL (130-400); RED BLOOD COUNT 3.42 M/uL (4.7-6.1); WHITE BLOOD COUNT 10.66 K/uL (4.8-10.8)
[2017-01-21 21:49] LABS: INR 1.2 (0.9-1.1); PARTIAL THROMBOPLASTIN RATIO 1.1; PROTHROMBIN TIME (PATIENT) 12.7 SECONDS (9.0-12.0)
[2017-01-21 21:51] LABS: COMPLETE YES; MEAN CORPUSCULAR HGB CONC 31.4 g/dl (32-36)
[2017-01-21 22:04] LABS: BUN/CREATININE RATIO 15.6 (10-20); CREATININE 0.89 mg/dl (0.60-1.40); MAGNESIUM 1.9 mg/dl (1.8-2.4); POTASSIUM 3.6 mmol/L (3.5-5.1)
--- NOTE | 2017-01-21 22:04 | GENITOURINARY CONSULTATION ---
DATE OF CONSULTATION: 01/21/2017 INTRAOPERATIVE CONSULTATION REASON FOR THE CONSULT: Inability to place Ward catheter at the onset of a ruptured aneurysm repair. HISTORY OF PRESENTATION: I was only able to obtain history from the anesthesiologist as best I could because this was an emergent case. The patient is a 71-year-old male with no obvious history of BPH who had a ruptured aneurysm and was emergently taken to the operating room where the attending physician attempted to place both a 16-Bel[place]an straight Ward catheter and a coude catheter. The coude catheter did have blood at the tip. He is unable to get the catheter in the bladder and requested an emergent intraoperative catheter placement. DESCRIPTION OF THE CONSULTATION: The patient's trial was reviewed again, very little information was found about the patient. There was no obvious history of prostate cancer surgery or prostate surgery. I did attempt to place a 16 [place]an coude catheter and with some difficulty, I was able to get this into the bladder. The balloon was inflated with 10 mL of saline and the catheter bag was placed. The penis has been prepped and draped as part of the operative field prior to this procedure with the penis being covered separately with a towel. The towel was use be covered the penis. I had described in for this procedure. At the end of this, I left the room and the operation proceeded.
[2017-01-21] MEDS: CEFAZOLIN IV 3,000 MG in DEXTROSE 5% 50ML 50 ML IV SCH (22:09)
[2017-01-21 22:16] LABS: CALCIUM 6.7 mg/dl (8.5-10.1)
--- NOTE | 2017-01-21 22:26 | OPERATIVE REPORT ---
DATE OF OPERATION: 01/21/2017 PREOPERATIVE DIAGNOSIS: Ruptured 5.8 cm infrarenal abdominal aortic aneurysm. POSTOPERATIVE DIAGNOSIS: Ruptured 5.8 cm infrarenal abdominal aortic aneurysm. PROCEDURE: Endovascular repair of abdominal aortic aneurysm, placement of aortic extension cuff x2, completion angiogram. SURGEON: Dr. Ahsan Fernandez. SURVEILLANCE DIRECTOR: Dr. Breann Shah. ESTIMATED BLOOD LOSS: 150 mL ANESTHESIA: General plus local. COMPLICATIONS: None. CONDITION: Critically ill but stable. INDICATIONS: Mr. Jamar Chung is a 71-year-old gentleman with history of CAD, hypertension, hyperlipidemia, hypothyroidism, status post CABG, who presented to the Emergency Department earlier today after a syncopal episode. He additionally had severe back pain. CT scan was obtained which showed a ruptured 5.8 cm infrarenal abdominal aortic aneurysm. The patient was recommended to undergo emergent repair of his aneurysm. Risks, benefits and alternatives were discussed with the patient and he agreed to the procedure. DESCRIPTION OF PROCEDURE: The patient was taken to the [facility] OR and placed in supine position. His abdomen and bilateral groins were prepped and draped in the usual sterile fashion. A Ward was attempted to be placed prior to prepping; however, this was unsuccessful. Urology was consulted and was able to place a Ward without difficulty after prepping. We began with the right groin. Local anesthesia was used to anesthetize the area over the right femoral artery. An 18-gauge access needle was used to access the right femoral artery by palpation. A 6 and then 8-Romanian sheath were then advanced into the right common femoral. Two Perclose devices were placed, one at 10 o'clock and one at 2 o'clock using the preclose technique. These deployed without difficulty. The right femoral was then dilated up to an 18-Romanian sheath. A Aurora wire was placed up the right femoral and advanced into the aorta. An aortic occlusion balloon was then advanced over the wire into the supraceliac aorta. At this time, we asked anesthesia to begin inducing. They were successfully able to intubate the patient; however, his pressure during this decreased with systolic blood pressures of 75. For this reason, the aortic occlusion balloon was inflated and was left inflated for approximately 15 minutes. We then turned our attention to the left groin. Palpation was used to identify the left femoral artery. Fluoroscopic assistance was used to access the left femoral artery with an 18-gauge access needle. J-wire was advanced through the wire and a 5-Romanian sheath placed up the left side. Two Perclose devices were then deployed in the left common femoral, one at 10 o'clock and one at 2 o'clock. There was some difficulty in deploying the first of the 2 Percloses. The left femoral was then dilated up to a 12-Romanian sheath. A 0.035 Glidewire was then advanced up the left common femoral into the abdominal aorta. Kumpe catheter was then placed over the wire and the wire exchanged for a Aurora wire. A pigtail catheter was then replaced over the wire up the left side. An aortogram was obtained after the balloon was deflated. A 28.5 mm x 14.5 mm x 14 cm Ryde Excluder endoprosthesis bifurcated device was then brought onto the field and placed up the right side. This was deployed below the right renal which was noted to be the low lying renal. Initially, the most proximal aspect of the graft did not appear to fully expand to 28.5 mm and there still appeared to be a large type 1A leak. We were able to cannulate the contralateral gate with the Kumpe and 0.035 Glidewire. A pigtail was placed up the left side and showed to be within the graft. An aortogram was obtained to identify the left internal iliac. The iliac limb was then brought into the field. A 16 mm x 18 mm x 11.5 cm graft was chosen. This was advanced up the left side and deployed without difficulty. A Q50 balloon was then advanced up the right side and inflated at the proximal aspect of the graft. This balloon did rupture and was removed and replaced with a new Q50 balloon. This was inflated again at the proximal aspect of the graft. An angiogram was then obtained and showed a type 1A endoleak. We elected to place an extension cuff. We chose a 28.5 x 3.3 cm aortic cuff. This was placed up the right side and advanced into the aorta. There still appeared to be several millimeters below the low lying right renal and the cuff was deployed there without difficulty. The Q50 balloon was then advanced up the right side and used to balloon the cuff. There still appeared to be a leak, type 1A leak at this time. We chose a second extension cuff, 32 mm x 4.5 cm. This was advanced up the right side and deployed without difficulty. A Q50 balloon was again placed up the right side and inflated at the proximal most aspect of the graft. The balloon was repositioned to the flow divider and again inflated. The distal landing zone was also ballooned as well. We then placed the Q50 balloon up the left side and ballooned the overlap near the flow divider. We also ballooned the distal landing zone on the left side as well. Completion angiogram was obtained from the right side and showed resolution of the type 1A endoleak. There did, however, still appear to be a type 2 endoleak. Both renals appeared patent. We then turned our attention to the left groin. The sheath was removed and the first Perclose was secured down. The suture unfortunately broke. The second Perclose was then secured down to the artery. There was still some pulsatile bleeding from the left femoral artery and manual pressure was held. We then turned our attention to the right groin. Both Perclose were secured in place without difficulty. There were no signs of bleeding following Perclose deployment. Arixtra was inserted into both access sites. Manual pressure was held over both access sites for approximately 5 minutes with good hemostasis. The patient's abdomen appeared soft at the close of the case. Sterile dressings were applied to both groins. The patient was kept intubated and transferred to the surgical ICU for close monitoring. He appeared to have tolerated the procedure well. Dr. Ahsan Fernandez was present and scrubbed for the entire procedure. I, Dr. Fernandez was present and scrubed for the entire procedure. I attest to the content of the Intraoperative Record and any orders documented therein. Any exceptions are noted below. [facility]
[2017-01-21] MEDS ORDERED: GLUCAGON FOR INJ 1 MG VIAL SQ PRN (22:30)
[2017-01-21] MEDS ORDERED: DEXTROSE 50% 50 ML SYR IV PRN (22:30)
[2017-01-21] MEDS ORDERED: PHARMACY GLYCEMIC MGMT CONSULT PRN (22:30)
[2017-01-21] MEDS ORDERED: GLUCOSE 40% GEL 15 GM TUBE PO PRN (22:30)
[2017-01-21] MEDS ORDERED: GLUCOSE 10 TABS/TUBE PO PRN (22:30)
[2017-01-21] MEDS: POTASSIUM CHLR 10 MEQ / WTR 10 MEQ in PREMIXED WATER 100 ML IV SCH (22:39)
[2017-01-21] MEDS: MoRPHine SULFATE 4 MG/ML 1 ML CARP\\VIAL IV PRN (23:49)
[2017-01-22] VITALS (28 sets, daily range): BP systolic 126–188; BP diastolic 57–94; PULSE 44–76; TEMP 34.9–36.7; O2SAT 90–98
[2017-01-22] MEDS ORDERED: MIDAZOLAM 125MG/250ML D5W 250 ML IV PRN (00:06)
[2017-01-22] MEDS: POTASSIUM CHLR 10 MEQ / WTR 10 MEQ in PREMIXED WATER 100 ML IV SCH ×3 (00:45→01:54)
[2017-01-22] MEDS ORDERED: FUROSEMIDE 40 MG/4 ML VIAL ONE (03:01)
[2017-01-22] MEDS: D5W AND 1/2NSS 1,000 ML IV SCH ×2 (03:40→09:49)
[2017-01-22] MEDS ORDERED: FUROSEMIDE INJ 20 MG in SYRINGE 0 ML IV STA (04:04)
--- NOTE | 2017-01-22 04:31 | Anesthesiology Progress Note ---
Anesthesia Post Op Note Date & Time Jan 22, 2017 at 04:30 Vital Signs Pain Intensity: 10.0 Vital Signs Past 12 Hours Date Time Temp Pulse Resp B/P (MAP) Pulse Ox O2 Delivery O2 Flow Rate FiO2 01/22/17 04:12 40 01/22/17 02:15 35.3 48 14 161/72 97 01/22/17 01:53 35.2 47 14 156/68 97 01/22/17 01:30 35.1 47 14 154/67 97 01/22/17 01:22 40 01/22/17 00:53 35.1 47 14 138/59 97 01/22/17 00:35 35.1 49 14 138/59 (85) 96 01/22/17 00:23 35.1 50 14 133/57 97 01/22/17 00:11 35.0 52 14 143/62 (89) 97 01/22/17 00:08 35.0 55 14 145/63 96 01/22/17 00:05 35.0 58 11 132/64 (86) 92 01/22/17 00:00 40 01/22/17 00:00 96 Mechanical Ventilator 40 01/22/17 00:00 34.9 54 14 126/57 96 01/21/17 23:35 34.8 44 14 147/65 (92) 97 01/21/17 23:20 40 01/21/17 23:05 34.7 44 7 139/63 (88) 99 01/21/17 23:02 34.7 45 15 124/64 (84) 99 01/21/17 23:00 34.7 44 15 125/57 (79) 99 01/21/17 23:00 34.7 41 14 137/59 98 01/21/17 22:45 34.6 47 15 143/62 (89) 98 01/21/17 22:30 34.6 52 14 155/70 98 01/21/17 22:30 34.6 53 14 155/71 (99) 100 01/21/17 22:15 34.6 54 14 157/70 (99) 98 01/21/17 22:10 34.6 54 14 150/66 99 01/21/17 22:02 34.6 51 14 146/78 (100) 99 01/21/17 22:00 34.6 49 14 145/64 (91) 98 01/21/17 21:56 34.6 50 14 143/63 99 01/21/17 21:45 34.6 49 14 146/64 (91) 98 01/21/17 21:30 34.6 49 14 151/66 (94) 99 01/21/17 21:15 50 01/21/17 21:15 34.6 49 14 158/69 (98) 100 01/21/17 21:13 34.6 50 14 161/72 (101) 100 01/21/17 21:02 34.6 47 14 179/72 (107) 100 01/21/17 21:00 34.6 53 14 180/73 (108) 100 01/21/17 20:50 34.6 53 14 180/79 100 Mechanical Ventilator 01/21/17 20:50 34.6 53 14 180/79 (112) 100 Mechanical Ventilator 01/21/17 20:50 53 14 180/79 (118) 100 Mechanical Ventilator 01/21/17 20:45 56 14 181/81 (121) 100 Mechanical Ventilator 01/21/17 20:40 53 14 173/75 (113) 100 Mechanical Ventilator 01/21/17 20:35 54 14 176/74 (114) 100 Mechanical Ventilator 01/21/17 20:30 60 14 197/91 (134) 100 Mechanical Ventilator 01/21/17 20:25 61 14 195/92 (134) 100 Mechanical Ventilator 01/21/17 20:20 57 14 156/62 (100) 100 Mechanical Ventilator NIBP 01/21/17 20:15 34.6 55 14 172/80 100 Mechanical Ventilator 01/21/17 20:11 100 01/21/17 18:10 36.6 74 20 165/70 84 01/21/17 17:52 74 165/70 84 01/21/17 17:47 51 01/21/17 17:43 161/68 01/21/17 17:42 62 01/21/17 17:37 57 90 01/21/17 17:32 148/70 01/21/17 17:28 47 91 01/21/17 17:25 170/80 01/21/17 17:23 48 163/78 99 01/21/17 17:18 47 162/79 93 01/21/17 17:13 46 100 01/21/17 17:08 46 01/21/17 17:03 47 99 01/21/17 17:02 153/77 01/21/17 17:00 163/77 01/21/17 17:00 48 20 163/77 99 Nasal Cannula 2.0 01/21/17 16:43 45 98 01/21/17 16:43 48 20 150/63 98 Nasal Cannula 2.0 01/21/17 16:42 150/63 01/21/17 16:38 51 98 01/21/17 16:33 47 97/63 100 01/21/17 16:33 48 16 97/63 99 Nasal Cannula 2.0 Notes Mental Status: see Notes Pt Amnestic to Procedure: Yes Nausea / Vomiting: adequately controlled Pain: adequately controlled Airway Patency, RR, SpO2: stable & adequate BP & HR: stable & adequate Hydration State: stable & adequate Anesthetic Complications: no major complications apparent Patient remained intubated and ventilated post-procedure. He was brought to the ICU in stable condition. Full report given to nursing and livery car driver staff. RT at bedside and started mechanical ventilation upon arrival.
[2017-01-22 05:03] LABS: CREATININE 0.95 mg/dl (0.60-1.40)
[2017-01-22 06:11] LABS: BASO % 0.3 %; BASO ABS # 0.03 K/uL (0-0.2); COMPLETE YES; EOS % 1.1 %; HEMATOCRIT 34.2 % (42-52); IG% 0.4 %; LYMPH % 5.7 %; LYMPH ABS # 0.61 K/uL (1.2-3.4); MEAN CELL VOLUME 90.7 fL (80-100); MEAN PLATELET VOLUME 9.6 fL (7.4-10.4); MONO % 7.6 %; NEUT % 84.9 %; PLATELET COUNT 125 K/uL (130-400); RED BLOOD COUNT 3.77 M/uL (4.7-6.1)
[2017-01-22] MEDS: CEFAZOLIN IV 3,000 MG in DEXTROSE 5% 50ML 50 ML IV SCH (06:17)
[2017-01-22 06:54] LABS: BUN/CREATININE RATIO 12.8 (10-20); CALCIUM 6.9 mg/dl (8.5-10.1); CREATININE 1.1 mg/dl (0.60-1.40); MAGNESIUM 1.9 mg/dl (1.8-2.4); PHOSPHORUS 2.9 mg/dl (2.5-4.9); POTASSIUM 3.6 mmol/L (3.5-5.1)
--- NOTE | 2017-01-22 07:14 | DIAGNOSTIC IMAGING REPORT ---
CHEST ONE VIEW PORTABLE CLINICAL HISTORY: Respiratory failure COMPARISON STUDY: 01/21/2017 FINDINGS: There are postsurgical changes of midline sternotomy. The heart is enlarged. There is an endotracheal tube positioned 5 cm above the johny. There is radiographic evidence of mild congestive failure/fluid overload. A right subclavian introducer sheath is again visualized.[ IMPRESSION: 1. Cardiomegaly and radiographic evidence of mild pulmonary vascular congestion/fluid overload 2. Endotracheal tube 5 cm above the johny Electronically signed by: Ishan Urbina M.D. 01/22/2017 7:13 AM Dictated Date/Time: 01/22/2017 7:11 AM
[2017-01-22] MEDS ORDERED: ICU ELECTROLYTE REPLACEMENT PROTOCOL PRN (07:30)
--- NOTE | 2017-01-22 07:35 | History and Physical ---
History & Physical Date Jan 22, 2017. Chief Complaint Ruptured AAA History of Present Illness The patient is a 71 year old male who was admitted to the ED for a syncopal episode and upper back pain. During his stay in the ED he developed lower back pain and found to have a ruptured 6cm AAA. His Bp dropped for a short time but then recovered and maintained a pressure in low 100's. Vitals Vital Signs Past 12 Hours Date Time Temp Pulse Resp B/P (MAP) Pulse Ox O2 Delivery O2 Flow Rate FiO2 01/22/17 05:55 36.1 58 11 188/85 (119) 96 01/22/17 05:40 40 01/22/17 04:12 40 01/22/17 04:00 40 01/22/17 04:00 35.6 46 14 159/69 (99) 97 Mechanical Ventilator 01/22/17 04:00 96 Mechanical Ventilator 40 01/22/17 03:00 35.4 44 14 154/67 (96) 98 01/22/17 02:15 35.3 48 14 161/72 97 01/22/17 02:00 35.2 46 14 154/66 (95) 97 Mechanical Ventilator 01/22/17 01:53 35.2 47 14 156/68 97 01/22/17 01:30 35.1 47 14 154/67 97 01/22/17 01:22 40 01/22/17 00:53 35.1 47 14 138/59 97 01/22/17 00:35 35.1 49 14 138/59 (85) 96 01/22/17 00:23 35.1 50 14 133/57 97 01/22/17 00:11 35.0 52 14 143/62 (89) 97 01/22/17 00:08 35.0 55 14 145/63 96 01/22/17 00:05 35.0 58 11 132/64 (86) 92 01/22/17 00:00 40 01/22/17 00:00 96 Mechanical Ventilator 40 01/22/17 00:00 34.9 54 14 126/57 96 01/21/17 23:35 34.8 44 14 147/65 (92) 97 01/21/17 23:20 40 01/21/17 23:05 34.7 44 7 139/63 (88) 99 01/21/17 23:02 34.7 45 15 124/64 (84) 99 01/21/17 23:00 34.7 44 15 125/57 (79) 99 01/21/17 23:00 34.7 41 14 137/59 98 01/21/17 22:45 34.6 47 15 143/62 (89) 98 01/21/17 22:30 34.6 52 14 155/70 98 01/21/17 22:30 34.6 53 14 155/71 (99) 100 01/21/17 22:15 34.6 54 14 157/70 (99) 98 01/21/17 22:10 34.6 54 14 150/66 99 01/21/17 22:02 34.6 51 14 146/78 (100) 99 01/21/17 22:00 34.6 49 14 145/64 (91) 98 01/21/17 21:56 34.6 50 14 143/63 99 01/21/17 21:45 34.6 49 14 146/64 (91) 98 01/21/17 21:30 34.6 49 14 151/66 (94) 99 01/21/17 21:15 50 01/21/17 21:15 34.6 49 14 158/69 (98) 100 01/21/17 21:13 34.6 50 14 161/72 (101) 01/21/17 21:02 34.6 47 14 179/72 (107) 100 01/21/17 21:00 34.6 53 14 180/73 (108) 100 01/21/17 20:50 34.6 53 14 180/79 100 Mechanical Ventilator 01/21/17 20:50 34.6 53 14 180/79 (112) 100 Mechanical Ventilator 01/21/17 20:50 53 14 180/79 (118) 100 Mechanical Ventilator 01/21/17 20:45 56 14 181/81 (121) 100 Mechanical Ventilator 01/21/17 20:40 53 14 173/75 (113) 100 Mechanical Ventilator 01/21/17 20:35 54 14 176/74 (114) 100 Mechanical Ventilator 01/21/17 20:30 60 14 197/91 (134) 100 Mechanical Ventilator 01/21/17 20:25 61 14 195/92 (134) 100 Mechanical Ventilator 01/21/17 20:20 57 14 156/62 (100) 100 Mechanical Ventilator NIBP 01/21/17 20:15 34.6 55 14 172/80 100 Mechanical Ventilator 01/21/17 20:11 100 Allergies Coded Allergies: Ranitidine (Verified Allergy, Unknown, UNSURE, 11/27/15) Adhesives (Verified Adverse Reaction, Unknown, TEARING OF SKIN, 11/27/15) Home Medications Scheduled Aspirin (Aspirin Ec), 81 MG PO QAM Carvedilol (Coreg), 25 MG PO BID Citalopram (Citalopram Hydrobromide), 40 MG PO QAM Clopidogrel (Plavix), 75 MG PO QAM Docusate Sodium (Docusate Sodium), 100 MG PO QAM Folic Acid (Folvite), 1 MG PO QAM Furosemide (Lasix), 40 MG PO BID Hydroxychloroquine Sulfate (Plaquenil), 400 MG PO DAILY Levothyroxine Sodium (Levothyroxine Sodium), 100 MCG PO DAILY Lisinopril (Zestril), 40 MG PO DAILY Methotrexate (Methotrexate), 25 MG PO WK Multivitamin (Multivitamin), 1 TAB PO QAM Pantoprazole (Protonix), 40 MG PO BID Potassium Ext Rel (Klor-Con), 20 MEQ PO QAM Prednisone (Prednisone), 5 MG PO QAM Simvastatin (Zocor), 20 MG PO QPM Scheduled PRN Nitroglycerin (Nitrostat), 0.4 MG UT UD PRN for Chest Pain Problem List Medical Problems: (1) Borderline diabetes (2) CAD (coronary artery disease) (3) HTN (hypertension) (4) Hyperlipidemia (5) Hypothyroidism (6) Remoal of left great toe (7) Rheumatoid arthritis (8) Ventral hernia with bowel obstruction Surgical Problems: (1) Hx of CABG Surgical / Medical History Hx Cardiac Surgery: Yes (CABG X3 VESSELS 2009, angio/stent 2008) Hx Abdominal Surgery: Yes (APPY, KRIS, ventral hernia 03/09/2016) Hx Cancer Surgery: No Hx Thoracic Surgery: No Hx Orthopedic: Yes (LT HAND RING FINGER AMPUTATION, LT GREAT TOE AMPUTATION) Hx Urinary Tract Surgery: No Past Medical/Surgical History: ASHD, CABG, Diabetes, Heart Disease, High Cholesterol, Thyroid Disease Family History Diabetes mellitus Social History Smoking Status: Former Smoker Hx Tobacco Use In Past Year?: No (40 pack year) Hx Alcohol Use - Type & Amnt: No Hx Substance Use -Type & Amnt: No Review of Systems Additional Comments: unobtainable at the time Physical Exam Constitutional: General Apperance: obese Level of Distress: moderate distress Ambulation: ambulating normally Psychiatric: Mental Status: lethargic Lungs: Auscultation: breath sounds normal Cardiovascular: Heart Auscultation: RRR Peripheral Pulses: Radial Pulse: normal on the left, normal on the right Femoral Pulse: absent on the left, absent on the right Popliteal Pulse: absent on the left, absent on the right Posterior Tibialis Pulse: absent on the left, absent on the right Dorsalis Pedis Pulse: absent on the left, absent on the right Abdomen: Inspection & Palpation: no tenderness, guarding & rebound, distended Musculoskeletal: normal, normal strength (5/5 throughout), normal tone Extremities: Upper Right: no cyanosis, no edema, no varicosities, no palpable cord, no clubbing, no ulcers, no mottling Upper Left: no cyanosis, no edema, no varicosities, no palpable cord, no clubbing, no ulcers, no mottling Lower Right: no cyanosis, no edema, no varicosities, no palpable cord, no clubbing, no ulcers, no mottling Lower Left: no cyanosis, no edema, no varicosities, no palpable cord, no clubbing, no ulcers, no mottling, pertinent finding (missing great toe) Assessment and Plan Imp: Ruptured AAA Plan: Patient for emergency repair of AAA. An attempt at endovascular repair will be undertaken, if not able to do by this method would have to open.
--- NOTE | 2017-01-22 07:38 | Progress Note ---
Progress Note Date of Service: Jan 22, 2017. Subjective Awake alert and extubated. Problem List Medical Problems: (1) Altered mental status Status: Acute (2) Hypertension Status: Acute (3) Hypotension Status: Acute (4) Incarcerated umbilical hernia Status: Acute (5) Ruptured abdominal aortic aneurysm (AAA) Status: Acute (6) Small bowel obstruction Status: Acute (7) Syncope Status: Acute (8) Weakness on right side of face Status: Acute Objective Vital Signs Vital Signs Past 12 Hours Date Time Temp Pulse Resp B/P (MAP) Pulse Ox O2 Delivery O2 Flow Rate FiO2 01/22/17 05:55 36.1 58 11 188/85 (119) 96 01/22/17 05:40 40 01/22/17 04:12 40 01/22/17 04:00 40 01/22/17 04:00 35.6 46 14 159/69 (99) 97 Mechanical Ventilator 01/22/17 04:00 96 Mechanical Ventilator 40 01/22/17 03:00 35.4 44 14 154/67 (96) 98 01/22/17 02:15 35.3 48 14 161/72 97 01/22/17 02:00 35.2 46 14 154/66 (95) 97 Mechanical Ventilator 01/22/17 01:53 35.2 47 14 156/68 97 01/22/17 01:30 35.1 47 14 154/67 97 01/22/17 01:22 40 01/22/17 00:53 35.1 47 14 138/59 97 01/22/17 00:35 35.1 49 14 138/59 (85) 96 01/22/17 00:23 35.1 50 14 133/57 97 01/22/17 00:11 35.0 52 14 143/62 (89) 97 01/22/17 00:08 35.0 55 14 145/63 96 01/22/17 00:05 35.0 58 11 132/64 (86) 92 01/22/17 00:00 40 01/22/17 00:00 96 Mechanical Ventilator 40 01/22/17 00:00 34.9 54 14 126/57 96 01/21/17 23:35 34.8 44 14 147/65 (92) 97 01/21/17 23:20 40 01/21/17 23:05 34.7 44 7 139/63 (88) 99 17 23:02 34.7 45 15 124/64 (84) 99 01/21/17 23:00 34.7 44 15 125/57 (79) 01/21/17 23:00 34.7 41 14 137/59 98 01/21/17 22:45 34.6 47 15 143/62 (89) 98 01/21/17 22:30 34.6 52 14 155/70 98 01/21/17 22:30 34.6 53 14 155/71 (99) 100 01/21/17 22:15 34.6 54 14 157/70 (99) 98 01/21/17 22:10 34.6 54 14 150/66 99 01/21/17 22:02 34.6 51 14 146/78 (100) 99 01/21/17 22:00 34.6 49 14 145/64 (91) 98 01/21/17 21:56 34.6 50 14 143/63 99 01/21/17 21:45 34.6 49 14 146/64 (91) 98 01/21/17 21:30 34.6 49 14 151/66 (94) 01/21/17 21:15 50 01/21/17 21:15 34.6 49 14 158/69 (98) 100 01/21/17 21:13 34.6 50 14 161/72 (101) 100 01/21/17 21:02 34.6 47 14 179/72 (107) 100 01/21/17 21:00 34.6 53 14 180/73 (108) 100 01/21/17 20:50 34.6 53 14 180/79 100 Mechanical Ventilator 01/21/17 20:50 34.6 53 14 180/79 (112) 100 Mechanical Ventilator 01/21/17 20:50 53 14 180/79 (118) 100 Mechanical Ventilator 01/21/17 20:45 56 14 181/81 (121) 100 Mechanical Ventilator 01/21/17 20:40 53 14 173/75 (113) 100 Mechanical Ventilator 01/21/17 20:35 54 14 176/74 (114) 100 Mechanical Ventilator 01/21/17 20:30 60 14 197/91 (134) 100 Mechanical Ventilator 01/21/17 20:25 61 14 195/92 (134) 100 Mechanical Ventilator 01/21/17 20:20 57 14 156/62 (100) 100 Mechanical Ventilator NIBP 01/21/17 20:15 34.6 55 14 172/80 100 Mechanical Ventilator 01/21/17 20:11 100 Exam VSS afebrile abd soft and distended urine output adequate good perfusion of legs. Laboratory and Microbiology Results Past 24 Hours Test 01/21/17 15:00 01/21/17 15:19 01/21/17 15:52 01/21/17 16:00 Range/Units White Blood Count 8.59 4.8-10.8 K/uL Red Blood Count 3.94 4.7-6.1 M/uL Hemoglobin 11.3 14.0-18.0 g/dL Hematocrit 36.4 42-52 % Mean Corpuscular Volume 92.4 80-100 fL Mean Corpuscular Hemoglobin 28.7 25-34 pg Mean Corpuscular Hemoglobin Concent 31.0 32-36 g/dl Platelet Count 272 130-400 K/uL Mean Platelet Volume 9.9 7.4-10.4 fL Neutrophils (%) (Auto) 61.7 % Lymphocytes (%) (Auto) 22.4 % Monocytes (%) (Auto) 8.0 % Eosinophils (%) (Auto) 6.4 % Basophils (%) (Auto) 1.3 % Neutrophils # (Auto) 5.30 1.4-6.5 K/uL Lymphocytes # (Auto) 1.92 1.2-3.4 K/uL Monocytes # (Auto) 0.69 0.11-0.59 K/uL Eosinophils # (Auto) 0.55 0-0.5 K/uL Basophils # (Auto) 0.11 0-0.2 K/uL RDW Standard Deviation 54.3 36.4-46.3 fL RDW Coefficient of Variation 16.4 11.5-14.5 % Immature Granulocyte % (Auto) 0.2 % Immature Granulocyte # (Auto) 0.02 0.00-0.02 K/uL Prothrombin Time 10.9 9.0-12.0 SECONDS Prothromb Time International Ratio 1.0 0.9-1.1 Activated Partial Thromboplast Time 19.8 21.0-31.0 SECONDS Partial Thromboplastin Ratio 0.8 Sodium Level 145 136-145 mmol/L Potassium Level 3.5 3.5-5.1 mmol/L Chloride Level 107 98-107 mmol/L Carbon Dioxide Level 30 21-32 mmol/L Anion Gap 8.0 17.0 16-25 mmol/L Blood Urea Nitrogen 15 7-18 mg/dl Creatinine 1.00 0.60-1.40 mg/dl Est Creatinine Clear Calc Drug Dose 95.5 ml/min Estimated GFR () 88.0 Estimated GFR (Non- 75.9 BUN/Creatinine Ratio 14.6 10-20 Random Glucose 132 70-99 mg/dl Calcium Level 8.2 8.5-10.1 mg/dl Total Bilirubin 0.5 0.2-1 mg/dl Direct Bilirubin 0.2 0-0.2 mg/dl Aspartate Amino Transf (AST/SGOT) 21 15-37 U/L Alanine Aminotransferase (ALT/SGPT) 26 12-78 U/L Alkaline Phosphatase 74 45-117 U/L Total Creatine Kinase 181 39-308 U/L Creatine Kinase MB 1.6 0.5-3.6 ng/ml Creatine Kinase MB Ratio 0.9 0-3.0 Troponin I 0.025 0-0.045 ng/ml Total Protein 6.3 6.4-8.2 gm/dl Albumin 2.8 3.4-5.0 gm/dl Bedside Hemoglobin 12.2 14.0-18.0 g/dl Bedside Hematocrit 36 42-52 % Bedside Sodium 143 135-144 mEq/L Bedside Potassium 3.6 3.3-5.0 mEq/L Bedside Chloride 103 101-112 mEq/L Bedside Total CO2 28 24-31 mEq/l Bedside Blood Urea Nitrogen 16 7-18 mg/dl Bedside Creatinine 1.1 0.6-1.3 mg/dl Bedside Glucose (other) 132 70-99 mg/dl Bedside Ionized Calcium (Sherrie) 1.14 1.12-1.32 mmol/l Bedside Lactic Acid Venous 2.10 0.90-1.70 mmol/L Arterial Blood pH 7.32 7.35-7.45 Arterial Blood Partial Pressure CO2 49 35-46 mmHg Arterial Blood Partial Pressure O2 94 80-95 mm/Hg Arterial Blood HCO3 25 19-24 mmol/L Arterial Blood Oxygen Saturation 96.6 90-95 % Arterial Blood Base Excess -1.7 -9-1.8 mEq/L Arterial Blood Gas Delivery 2 L Peter Test POS POS Test 01/21/17 19:39 6/7/17 21:14 01/21/17 21:30 01/22/17 00:14 Range/Units Bedside Hemoglobin 8.2 14.0-18.0 g/dl Bedside Hematocrit 24 42-52 % Bedside Sodium 141 135-144 mEq/L Bedside Potassium 3.6 3.3-5.0 mEq/L Bedside Chloride 107 101-112 mEq/L Bedside Total CO2 23 24-31 mEq/l Anion Gap 15.0 10.0 3-11 mmol/L Bedside Blood Urea Nitrogen 13 7-18 mg/dl Bedside Creatinine 0.6 0.6-1.3 mg/dl Bedside Glucose (other) 126 70-99 mg/dl Bedside Ionized Calcium (Sherrie) 0.99 1.12-1.32 mmol/l Blood Gas Sample Site Art Line Bedside Blood Gas pH (LAB) 7.39 7.35-7.45 Bedside Blood Gas pCO2 (LAB) 45 35-46 mmHg Bedside Blood Gas pO2 (LAB) 403 80-95 mmHg Bedside Blood Gas HCO3 (LAB) 28 19-24 meq/L Bedside Blood Gas Total CO2 30 24-31 mEq/l Bedside Blood Gas Base Excess (LAB) 3.0 -9-1.8 meq/L Bedside Blood Gas O2 Saturation 100.0 90-95 % Peter Test NA Oxygen Delivery Device Ventilator Bedside Oxygen Rate (breaths/min) 14 Bedside FiO2 100 % Blood Gas Tidal Volume 550 Blood Gas PEEP 5 White Blood Count 10.66 4.8-10.8 K/uL Red Blood Count 3.42 4.7-6.1 M/uL Hemoglobin 9.8 14.0-18.0 g/dL Hematocrit 31.2 42-52 % Mean Corpuscular Volume 91.2 80-100 fL Mean Corpuscular Hemoglobin 28.7 25-34 pg Mean Corpuscular Hemoglobin Concent 31.4 32-36 g/dl Platelet Count 147 130-400 K/uL Mean Platelet Volume 9.4 7.4-10.4 fL Neutrophils (%) (Auto) 83.8 % Lymphocytes (%) (Auto) 6.3 % Monocytes (%) (Auto) 6.8 % Eosinophils (%) (Auto) 2.3 % Basophils (%) (Auto) 0.5 % Neutrophils # (Auto) 8.94 1.4-6.5 K/uL Lymphocytes # (Auto) 0.67 1.2-3.4 K/uL Monocytes # (Auto) 0.73 0.11-0.59 K/uL Eosinophils # (Auto) 0.24 0-0.5 K/uL Basophils # (Auto) 0.05 0-0.2 K/uL RDW Standard Deviation 53.4 36.4-46.3 fL RDW Coefficient of Variation 16.2 11.5-14.5 % Immature Granulocyte % (Auto) 0.3 % Immature Granulocyte # (Auto) 0.03 0.00-0.02 K/uL Prothrombin Time 12.7 9.0-12.0 SECONDS Prothromb Time International Ratio 1.2 0.9-1.1 Activated Partial Thromboplast Time 29.2 21.0-31.0 SECONDS Partial Thromboplastin Ratio 1.1 Sodium Level 146 136-145 mmol/L Potassium Level 3.6 3.5-5.1 mmol/L Chloride Level 111 98-107 mmol/L Carbon Dioxide Level 25 21-32 mmol/L Blood Urea Nitrogen 14 7-18 mg/dl Creatinine 0.89 0.60-1.40 mg/dl Est Creatinine Clear Calc Drug Dose 107.4 ml/min Estimated GFR () 100.4 Estimated GFR (Non- 86.6 BUN/Creatinine Ratio 15.6 10-20 Random Glucose 135 70-99 mg/dl Calcium Level 6.7 8.5-10.1 mg/dl Magnesium Level 1.9 1.8-2.4 mg/dl Bedside Glucose 155 70-99 mg/dl Test 01/22/17 02:03 01/22/17 05:50 01/22/17 06:16 Range/Units Creatinine 0.95 1.10 0.60-1.40 mg/dl Est Creatinine Clear Calc Drug Dose 100.6 86.9 ml/min Estimated GFR () 93.6 78.4 Estimated GFR (Non- 80.8 67.7 White Blood Count 10.70 4.8-10.8 K/uL Red Blood Count 3.77 4.7-6.1 M/uL Hemoglobin 11.3 14.0-18.0 g/dL Hematocrit 34.2 42-52 % Mean Corpuscular Volume 90.7 80-100 fL Mean Corpuscular Hemoglobin 30.0 25-34 pg Mean Corpuscular Hemoglobin Concent 33.0 32-36 g/dl Platelet Count 125 130-400 K/uL Mean Platelet Volume 9.6 7.4-10.4 fL Neutrophils (%) (Auto) 84.9 % Lymphocytes (%) (Auto) 5.7 % Monocytes (%) (Auto) 7.6 % Eosinophils (%) (Auto) 1.1 % Basophils (%) (Auto) 0.3 % Neutrophils # (Auto) 9.09 1.4-6.5 K/uL Lymphocytes # (Auto) 0.61 1.2-3.4 K/uL Monocytes # (Auto) 0.81 0.11-0.59 K/uL Eosinophils # (Auto) 0.12 0-0.5 K/uL Basophils # (Auto) 0.03 0-0.2 K/uL RDW Standard Deviation 52.2 36.4-46.3 fL RDW Coefficient of Variation 15.9 11.5-14.5 % Immature Granulocyte % (Auto) 0.4 % Immature Granulocyte # (Auto) 0.04 0.00-0.02 K/uL Sodium Level 145 136-145 mmol/L Potassium Level 3.6 3.5-5.1 mmol/L Chloride Level 112 98-107 mmol/L Carbon Dioxide Level 24 21-32 mmol/L Anion Gap 9.0 3-11 mmol/L Blood Urea Nitrogen 14 7-18 mg/dl BUN/Creatinine Ratio 12.8 10-20 Random Glucose 149 70-99 mg/dl Calcium Level 6.9 8.5-10.1 mg/dl Phosphorus Level 2.9 2.5-4.9 mg/dl Magnesium Level 1.9 1.8-2.4 mg/dl Bedside Glucose 161 70-99 mg/dl Imp: Post PEVAR for ruptured AAA Plan: Doing well Will keep him well hydrated to try to avoid FLORECITA No abd compartment syndrome at present Hgb stable. Continue present treatment Can be OOB
--- NOTE | 2017-01-22 08:30 | Critical Care Progress Note ---
Critical Care Progress Note Date of Service Jan 22, 2017. ICU Day ICU Day Number: [address] Renteria Subjective Underwent percutaneous AAA repair yesterday with Dr Fernandez, was successfully extubated this morning Awake, alert, and denies any concerns or pain at this time Objective GENERAL: Awake, alert, in no acute distress HENT: Normocephalic, atraumatic. Oropharynx unremarkable. On 4L NC. EYES: Normal conjunctiva. Sclera non-icteric. NECK: Supple. No nuchal rigidity. FROM. No JVD. RESPIRATORY: Clear to auscultation. CARDIAC: Regular rate, normal rhythm. Extremities warm and well perfused. Pulses equal. ABDOMEN: Soft, non-distended. No tenderness to palpation. No rebound or guarding. No masses. MUSCULOSKELETAL: Chest examination reveals no tenderness. No joint edema. LOWER EXTREMITIES: Calves are equal size bilaterally and non-tender. No edema. No discoloration. NEURO: Normal sensorium. No sensory or motor deficits noted. SKIN: No rash or jaundice noted. CHEST ONE VIEW PORTABLE CLINICAL HISTORY: Respiratory failure COMPARISON STUDY: 01/21/2017 FINDINGS: There are postsurgical changes of midline sternotomy. The heart is enlarged. There is an endotracheal tube positioned 5 cm above the johny. There is radiographic evidence of mild congestive failure/fluid overload. A right subclavian introducer sheath is again visualized.[ IMPRESSION: 1. Cardiomegaly and radiographic evidence of mild pulmonary vascular congestion/fluid overload 2. Endotracheal tube 5 cm above the johny Current SOFA Score SOFA Score Response (Comments) Value Platelets (x10) < 150 1 Bilirubin (mg/dL) < 1.2 0 Leah Coma Score 15 0 Level of Hypotension No Hypotension 0 Creatinine (mg/dL) < 1.2 0 Total 1 Assessment & Plan 71 yo M with multiple co-morbidities (CAD s/p CABG, T2DM, hyperlipidemia, hypertension), with acute blood loss anemia from ruptured AAA requiring tranfusion, day 1/p percutaneous AAA repair CVS: Nicardipine restarted R subclavian line inserted by Dr Renteria 01/21/17 Restart plavix, aspirin, simvastatin. No diuretics, bblocker or NOEMI-I/ARB Will start nicardipine today. WIll obtain Echo today. NEURO: CAM negative, continue to monitor HEME: Start heparin q8h SCDs for DVT Prophylaxis RESP: Extubated 7:20am, now on 4-5L O2 Has a good cough reflex Monitor GI: Once has active bowel sounds, can add clear liquid diet RENAL Fluids down to 100mL/hour ENDO Will restart home dose of steroids RHEUM Will restart plaquanil today Hold MTX for healing. Takes weekly on . DISPO Remain in ICU CODE STATUS: FULL Resident Physician Supervision Note: Dr. Burnett was resident physician during care of patient. I separately evaluated patient and did history and exam. I discussed the case with the resident and generally agree with the findings and plan. Patient extubated successfully this morning. Allowed to have clears, there are bowel sounds. Starting amlodipine 5 mg for leg pressure control as beta blockers are contraindicated in setting of profound bradycardia. Patient's bradycardia didn't improve throughout the day and was subsequently restarted on 12.5 mg of Coreg with anticipation of increasing this over the next 24 hours. Anticipated acute blood loss anemia, blood sugars within acceptable range. Echocardiogram reviewed: EF 40-45 with moderate hypokinesis of the basal inferior segments, left atrium severely dilated, no documentation regarding the right ventricle. Continue with gentle hydration, monitoring for volume overload in setting of decreased EF with severely dilated left ventricle, no images of the right ventricle were obtained. Restart baseline steroid dosing, holding this week's dose of methotrexate to allow for improved wound healing. I have personally spent 40 minutes of critical care time in the direct management of this patient. This is a life/limb threatening event. This includes time spent evaluating patient, direct bedside care, chart review, placing orders, interpretation of diagnostic studies, discussion with consultants, patient, and family members, as well as other required patient management activities. This time is exclusive of all separately billable procedures, and teaching time and separate from and in addition to any other critical care service time. Documented By: Martin Renteria DO Consults & Procedures Consultants: Dr Fernandez, Vascular Surg Procedures: AAA Repair, 01/21/17 Data Medications: Current Inpatient Medications Medications (Trade) Dose Ordered Sig/Kavya Route Start Time Stop Time Status Last Admin Dose Admin Ioversol (Optiray 320) 125 ml UD PRN IV 01/21/17 15:30 01/25/17 15:29 Morphine Sulfate (MoRPHine SULFATE INJ) 4 mg Q2H PRN IV 01/21/17 20:30 02/04/17 20:29 01/21/17 23:49 4 MG Ondansetron HCl (Zofran Inj) 4 mg Q6H PRN IV 01/21/17 20:30 02/20/17 20:29 Pantoprazole Sodium 40 mg/ Syringe 10 ml @ 5 mls/min DAILY@11 IV 01/22/17 11:00 02/21/17 10:59 Metoprolol Tartrate (Lopressor Iv) 5 mg Q10M PRN IV 01/21/17 20:30 02/20/17 20:29 Nitroglycerin/ Dextrose 250 ml @ 0 mls/hr Q0M PRN IV 01/21/17 20:21 02/20/17 20:20 01/21/17 20:54 6 MLS/HR Dextrose/Sodium Chloride 1,000 ml @ 150 mls/hr Q6H40M IV 01/21/17 21:00 02/20/17 20:59 01/22/17 03:40 150 MLS/HR Phenylephrine HCl 20 mg/Dextrose 502 ml @ 0 mls/hr Q0M PRN IV 01/21/17 20:21 02/20/17 20:20 Fentanyl Citrate (Fentanyl Inj) 100 mcg Q2H PRN IV 01/21/17 20:45 02/04/17 20:44 01/21/17 22:39 100 MCG Miscellaneous Information (Consult Glycemic Management Pharmacy) 1 ea UD PRN N/A 01/21/17 22:30 02/20/17 22:29 Insulin Aspart (novoLOG ASPART) SLIDING SCALE Q6 SC 01/22/17 00:00 02/21/17 00:00 Glucose (Glucose 40% Gel) 15-30 GRAMS 15 GRAMS... UD PRN PO 01/21/17 22:30 02/20/17 22:29 Glucose (Glucose Chew Tab) 4-8 Tablets 4 Tabl... UD PRN PO 01/21/17 22:30 02/20/17 22:29 Dextrose (Dextrose 50% 50ML Syringe) 25-50ML OF 50% DW IV FOR... UD PRN IV 01/21/17 22:30 02/20/17 22:29 Glucagon (Glucagon Inj) 1 mg UD PRN SQ 01/21/17 22:30 02/20/17 22:29 Miscellaneous Information ( Icu Electrolyte Replacement Protocol) 1 ea per protocol PRN N/A 01/22/17 07:30 01/29/17 07:29 Vital Signs: Date Time Temp Pulse Resp B/P (MAP) Pulse Ox O2 Delivery O2 Flow Rate FiO2 01/22/17 05:55 36.1 58 11 188/85 (119) 96 01/22/17 05:40 40 01/22/17 04:12 40 01/22/17 04:00 40 01/22/17 04:00 35.6 46 14 159/69 (99) 97 Mechanical Ventilator 01/22/17 04:00 96 Mechanical Ventilator 40 01/22/17 03:00 35.4 44 14 154/67 (96) 98 01/22/17 02:15 35.3 48 14 161/72 97 01/22/17 02:00 35.2 46 14 154/66 (95) 97 Mechanical Ventilator 01/22/17 01:53 35.2 47 14 156/68 97 01/22/17 01:30 35.1 47 14 154/67 97 01/22/17 01:22 40 01/22/17 00:53 35.1 47 14 138/59 97 01/22/17 00:35 35.1 49 14 138/59 (85) 96 01/22/17 00:23 35.1 50 14 133/57 97 01/22/17 00:11 35.0 52 14 143/62 (89) 97 01/22/17 00:08 35.0 55 14 145/63 96 01/22/17 00:05 35.0 58 11 132/64 (86) 92 01/22/17 00:00 40 01/22/17 00:00 96 Mechanical Ventilator 40 01/22/17 00:00 34.9 54 14 126/57 96 01/21/17 23:35 34.8 44 14 147/65 (92) 97 01/21/17 23:20 40 01/21/17 23:05 34.7 44 7 139/63 (88) 99 01/21/17 23:02 34.7 45 15 124/64 (84) 99 01/21/17 23:00 34.7 44 15 125/57 (79) 99 01/21/17 23:00 34.7 41 14 137/59 98 01/21/17 22:45 34.6 47 15 143/62 (89) 98 6/7/17 22:30 34.6 52 14 155/70 98 01/21/17 22:30 34.6 53 14 155/71 (99) 100 01/21/17 22:15 34.6 54 14 157/70 (99) 98 01/21/17 22:10 34.6 54 14 150/66 99 01/21/17 22:02 34.6 51 14 146/78 (100) 99 01/21/17 22:00 34.6 49 14 145/64 (91) 98 01/21/17 21:56 34.6 50 14 143/63 99 01/21/17 21:45 34.6 49 14 146/64 (91) 98 01/21/17 21:30 34.6 49 14 151/66 (94) 99 01/21/17 21:15 50 01/21/17 21:15 34.6 49 14 158/69 (98) 100 01/21/17 21:13 34.6 50 14 161/72 (101) 01/21/17 21:02 34.6 47 14 179/72 (107) 100 01/21/17 21:00 34.6 53 14 180/73 (108) 100 01/21/17 20:50 34.6 53 14 180/79 100 Mechanical Ventilator 01/21/17 20:50 34.6 53 14 180/79 (112) 100 Mechanical Ventilator 01/21/17 20:50 53 14 180/79 (118) 100 Mechanical Ventilator 01/21/17 20:45 56 14 181/81 (121) 100 Mechanical Ventilator 01/21/17 20:40 53 14 173/75 (113) 100 Mechanical Ventilator 01/21/17 20:35 54 14 176/74 (114) 100 Mechanical Ventilator 01/21/17 20:30 60 14 197/91 (134) 100 Mechanical Ventilator 01/21/17 20:25 61 14 195/92 (134) 100 Mechanical Ventilator 01/21/17 20:20 57 14 156/62 (100) 100 Mechanical Ventilator NIBP 01/21/17 20:15 34.6 55 14 172/80 100 Mechanical Ventilator 01/21/17 20:11 100 01/21/17 18:10 36.6 74 20 165/70 84 01/21/17 17:52 74 165/70 84 01/21/17 17:47 51 01/21/17 17:43 161/68 01/21/17 17:42 62 01/21/17 17:37 57 90 01/21/17 17:32 148/70 01/21/17 17:28 47 91 01/21/17 17:25 170/80 01/21/17 17:23 48 163/78 99 01/21/17 17:18 47 162/79 93 01/21/17 17:13 46 100 01/21/17 17:08 46 01/21/17 17:03 47 99 01/21/17 17:02 153/77 01/21/17 17:00 163/77 01/21/17 17:00 48 20 163/77 99 Nasal Cannula 2.0 01/21/17 16:43 45 98 01/21/17 16:43 48 20 150/63 98 Nasal Cannula 2.0 01/21/17 16:42 150/63 01/21/17 16:38 51 98 01/21/17 16:33 47 97/63 100 01/21/17 16:33 48 16 97/63 99 Nasal Cannula 2.0 01/21/17 16:28 48 01/21/17 16:25 36.6 01/21/17 16:23 51 01/21/17 16:18 47 99 01/21/17 16:17 96/50 01/21/17 16:17 48 16 96/50 100 Nasal Cannula 2.0 01/21/17 16:13 48 96 01/21/17 16:08 47 99 01/21/17 16:06 48 01/21/17 16:03 48 20 116/57 100 Nasal Cannula 2.0 01/21/17 16:03 49 100 01/21/17 16:02 116/57 01/21/17 16:00 91/47 01/21/17 15:59 46 20 91/47 98 Nasal Cannula 2.0 01/21/17 15:58 50 100 01/21/17 15:53 48 95 01/21/17 15:46 Nasal Cannula 2.0 01/21/17 15:44 88 Room Air 01/21/17 15:39 112/54 01/21/17 15:38 50 20 112/54 92 Room Air 01/21/17 15:13 56 20 101/54 91 Room Air Laboratory Results: Last 24 Hours Test 01/21/17 15:00 01/21/17 15:19 01/21/17 15:52 01/21/17 16:00 White Blood Count 8.59 K/uL Red Blood Count 3.94 M/uL Hemoglobin 11.3 g/dL Hematocrit 36.4 % Mean Corpuscular Volume 92.4 fL Mean Corpuscular Hemoglobin 28.7 pg Mean Corpuscular Hemoglobin Concent 31.0 g/dl Platelet Count 272 K/uL Mean Platelet Volume 9.9 fL Neutrophils (%) (Auto) 61.7 % Lymphocytes (%) (Auto) 22.4 % Monocytes (%) (Auto) 8.0 % Eosinophils (%) (Auto) 6.4 % Basophils (%) (Auto) 1.3 % Neutrophils # (Auto) 5.30 K/uL Lymphocytes # (Auto) 1.92 K/uL Monocytes # (Auto) 0.69 K/uL Eosinophils # (Auto) 0.55 K/uL Basophils # (Auto) 0.11 K/uL RDW Standard Deviation 54.3 fL RDW Coefficient of Variation 16.4 % Immature Granulocyte % (Auto) 0.2 % Immature Granulocyte # (Auto) 0.02 K/uL Prothrombin Time 10.9 SECONDS Prothromb Time International Ratio 1.0 Activated Partial Thromboplast Time 19.8 SECONDS Partial Thromboplastin Ratio 0.8 Sodium Level 145 mmol/L Potassium Level 3.5 mmol/L Chloride Level 107 mmol/L Carbon Dioxide Level 30 mmol/L Anion Gap 8.0 mmol/L 17.0 mmol/L Blood Urea Nitrogen 15 mg/dl Creatinine 1.00 mg/dl Est Creatinine Clear Calc Drug Dose 95.5 ml/min Estimated GFR () 88.0 Estimated GFR (Non- 75.9 BUN/Creatinine Ratio 14.6 Random Glucose 132 mg/dl Calcium Level 8.2 mg/dl Total Bilirubin 0.5 mg/dl Direct Bilirubin 0.2 mg/dl Aspartate Amino Transf (AST/SGOT) 21 U/L Alanine Aminotransferase (ALT/SGPT) 26 U/L Alkaline Phosphatase 74 U/L Total Creatine Kinase 181 U/L Creatine Kinase MB 1.6 ng/ml Creatine Kinase MB Ratio 0.9 Troponin I 0.025 ng/ml Total Protein 6.3 gm/dl Albumin 2.8 gm/dl Bedside Hemoglobin 12.2 g/dl Bedside Hematocrit 36 % Bedside Sodium 143 mEq/L Bedside Potassium 3.6 mEq/L Bedside Chloride 103 mEq/L Bedside Total CO2 28 mEq/l Bedside Blood Urea Nitrogen 16 mg/dl Bedside Creatinine 1.1 mg/dl Bedside Glucose (other) 132 mg/dl Bedside Ionized Calcium (Sherrie) 1.14 mmol/l Bedside Lactic Acid Venous 2.10 mmol/L Arterial Blood pH 7.32 Arterial Blood Partial Pressure CO2 49 mmHg Arterial Blood Partial Pressure O2 94 mm/Hg Arterial Blood HCO3 25 mmol/L Arterial Blood Oxygen Saturation 96.6 % Arterial Blood Base Excess -1.7 mEq/L Arterial Blood Gas Delivery 2 L Peter Test POS Test 01/21/17 19:39 01/21/17 21:14 01/21/17 21:30 01/22/17 00:14 Bedside Hemoglobin 8.2 g/dl Bedside Hematocrit 24 % Bedside Sodium 141 mEq/L Bedside Potassium 3.6 mEq/L Bedside Chloride 107 mEq/L Bedside Total CO2 23 mEq/l Anion Gap 15.0 mmol/L 10.0 mmol/L Bedside Blood Urea Nitrogen 13 mg/dl Bedside Creatinine 0.6 mg/dl Bedside Glucose (other) 126 mg/dl Bedside Ionized Calcium (Sherrie) 0.99 mmol/l Blood Gas Sample Site Art Line Bedside Blood Gas pH (LAB) 7.39 Bedside Blood Gas pCO2 (LAB) 45 mmHg Bedside Blood Gas pO2 (LAB) 403 mmHg Bedside Blood Gas HCO3 (LAB) 28 meq/L Bedside Blood Gas Total CO2 30 mEq/l Bedside Blood Gas Base Excess (LAB) 3.0 meq/L Bedside Blood Gas O2 Saturation 100.0 % Peter Test NA Oxygen Delivery Device Ventilator Bedside Oxygen Rate (breaths/min) 14 Bedside FiO2 100 % Blood Gas Tidal Volume 550 Blood Gas PEEP 5 White Blood Count 10.66 K/uL Red Blood Count 3.42 M/uL Hemoglobin 9.8 g/dL Hematocrit 31.2 % Mean Corpuscular Volume 91.2 fL Mean Corpuscular Hemoglobin 28.7 pg Mean Corpuscular Hemoglobin Concent 31.4 g/dl Platelet Count 147 K/uL Mean Platelet Volume 9.4 fL Neutrophils (%) (Auto) 83.8 % Lymphocytes (%) (Auto) 6.3 % Monocytes (%) (Auto) 6.8 % Eosinophils (%) (Auto) 2.3 % Basophils (%) (Auto) 0.5 % Neutrophils # (Auto) 8.94 K/uL Lymphocytes # (Auto) 0.67 K/uL Monocytes # (Auto) 0.73 K/uL Eosinophils # (Auto) 0.24 K/uL Basophils # (Auto) 0.05 K/uL RDW Standard Deviation 53.4 fL RDW Coefficient of Variation 16.2 % Immature Granulocyte % (Auto) 0.3 % Immature Granulocyte # (Auto) 0.03 K/uL Prothrombin Time 12.7 SECONDS Prothromb Time International Ratio 1.2 Activated Partial Thromboplast Time 29.2 SECONDS Partial Thromboplastin Ratio 1.1 Sodium Level 146 mmol/L Potassium Level 3.6 mmol/L Chloride Level 111 mmol/L Carbon Dioxide Level 25 mmol/L Blood Urea Nitrogen 14 mg/dl Creatinine 0.89 mg/dl Est Creatinine Clear Calc Drug Dose 107.4 ml/min Estimated GFR () 100.4 Estimated GFR (Non- 86.6 BUN/Creatinine Ratio 15.6 Random Glucose 135 mg/dl Calcium Level 6.7 mg/dl Magnesium Level 1.9 mg/dl Bedside Glucose 155 mg/dl Test 01/22/17 02:03 01/22/17 05:50 01/22/17 06:16 Creatinine 0.95 mg/dl 1.10 mg/dl Est Creatinine Clear Calc Drug Dose 100.6 ml/min 86.9 ml/min Estimated GFR () 93.6 78.4 Estimated GFR (Non- 80.8 67.7 White Blood Count 10.70 K/uL Red Blood Count 3.77 M/uL Hemoglobin 11.3 g/dL Hematocrit 34.2 % Mean Corpuscular Volume 90.7 fL Mean Corpuscular Hemoglobin 30.0 pg Mean Corpuscular Hemoglobin Concent 33.0 g/dl Platelet Count 125 K/uL Mean Platelet Volume 9.6 fL Neutrophils (%) (Auto) 84.9 % Lymphocytes (%) (Auto) 5.7 % Monocytes (%) (Auto) 7.6 % Eosinophils (%) (Auto) 1.1 % Basophils (%) (Auto) 0.3 % Neutrophils # (Auto) 9.09 K/uL Lymphocytes # (Auto) 0.61 K/uL Monocytes # (Auto) 0.81 K/uL Eosinophils # (Auto) 0.12 K/uL Basophils # (Auto) 0.03 K/uL RDW Standard Deviation 52.2 fL RDW Coefficient of Variation 15.9 % Immature Granulocyte % (Auto) 0.4 % Immature Granulocyte # (Auto) 0.04 K/uL Sodium Level 145 mmol/L Potassium Level 3.6 mmol/L Chloride Level 112 mmol/L Carbon Dioxide Level 24 mmol/L Anion Gap 9.0 mmol/L Blood Urea Nitrogen 14 mg/dl BUN/Creatinine Ratio 12.8 Random Glucose 149 mg/dl Calcium Level 6.9 mg/dl Phosphorus Level 2.9 mg/dl Magnesium Level 1.9 mg/dl Bedside Glucose 161 mg/dl Resident Tracking Resident Involvement: Resident Care Provided (ICU) Care Provided: Adult Hospital Medicine
[2017-01-22] MEDS: INSULIN ASPART 100 UNITS/ML 3 ML PEN SC SCH ×5 (08:45→21:32)
[2017-01-22] MEDS ORDERED: NURSING VERBAL MED ORDER ONE (09:00)
[2017-01-22] MEDS ORDERED: AMLODIPINE BESYLATE 5 MG TAB PO ONE (09:00)
--- NOTE | 2017-01-22 09:01 | Clinical Documentation Query ---
CLINICAL DOCUMENTATION QUERY Dr. QUESADA, In your clinical opinion is this patient being managed for: ( x ) Acute blood loss anemia ( ) Other explanation of clinical findings (Please Explain) ( ) Unable to determine (Please Define) ( ) Need to Discuss ( ) Not Agree The medical record reflects the following clinical findings, treatment, and risk factors. Clinical Indicators: 71 yo male presenting with a ruptured AAA. Initial Hgb 11.3/36.4 dropping to 8.2/24. EBL 150 cc Treatment: transfusion 4U PRBC, ICU postoperatively, IV fluids, serial CBC's Risk Factors: ruptured AAA, expected surgical blood loss Please clarify and document your clinical opinion in the progress notes and discharge summary. Terms such as "probable", "suspected", "likely", "questionable", "possible", or "still to be ruled out" are acceptable. IF IN AGREEMENT, YOU MUST DOCUMENT ABOVE DIAGNOSTIC STATEMENT IN DAILY PROGRESS NOTES AND DISCHARGE SUMMARY. This document is not part of the patient's record. Thank You, Ailin Rosado RN [phone]
--- NOTE | 2017-01-22 09:02 | Clinical Documentation Query ---
CLINICAL DOCUMENTATION QUERY Dr. ARRIAZA, In your clinical opinion is this patient being managed for: (X ) Acute blood loss anemia ( ) Other explanation of clinical findings (Please Explain) ( ) Unable to determine (Please Define) ( ) Need to Discuss ( ) Not Agree Documented into the patient's problem list The medical record reflects the following clinical findings, treatment, and risk factors. Clinical Indicators: 71 yo male presenting with a ruptured AAA. Initial Hgb 11.3/36.4 dropping to 8.2/24. EBL 150 cc Treatment: transfusion 4U PRBC, ICU postoperatively, IV fluids, serial CBC's Risk Factors: ruptured AAA, expected surgical blood loss Please clarify and document your clinical opinion in the progress notes and discharge summary. Terms such as "probable", "suspected", "likely", "questionable", "possible", or "still to be ruled out" are acceptable. IF IN AGREEMENT, YOU MUST DOCUMENT ABOVE DIAGNOSTIC STATEMENT IN DAILY PROGRESS NOTES AND DISCHARGE SUMMARY. This document is not part of the patient's record. Thank You, Ailin Rosado, RN [phone]
--- NOTE | 2017-01-22 09:04 | Clinical Documentation Query ---
CLINICAL DOCUMENTATION QUERY Dr. LARA, In your clinical opinion is this patient being managed for: ( x ) Acute blood loss anemia ( ) Other explanation of clinical findings (Please Explain) ( ) Unable to determine (Please Define) ( ) Need to Discuss ( ) Not Agree The medical record reflects the following clinical findings, treatment, and risk factors. Clinical Indicators: 71 yo male presenting with a ruptured AAA. Initial Hgb 11.3/36.4 dropping to 8.2/24. EBL 150 cc Treatment: transfusion 4U PRBC, ICU postoperatively, IV fluids, serial CBC's Risk Factors: ruptured AAA, expected surgical blood loss Please clarify and document your clinical opinion in the progress notes and discharge summary. Terms such as "probable", "suspected", "likely", "questionable", "possible", or "still to be ruled out" are acceptable. IF IN AGREEMENT, YOU MUST DOCUMENT ABOVE DIAGNOSTIC STATEMENT IN DAILY PROGRESS NOTES AND DISCHARGE SUMMARY. This document is not part of the patient's record. Thank You, Ailin Rosado RN [phone]
[2017-01-22] MEDS: PANTOprazole SOD 40 MG TAB PO SCH (09:46)
--- NOTE | 2017-01-22 10:25 | Anesthesiology Progress Note ---
Anesthesia Post Op Note Date & Time Jan 22, 2017 at 10:25 Vital Signs Pain Intensity: 10.0 Vital Signs Past 12 Hours Date Time Temp Pulse Resp B/P (MAP) Pulse Ox O2 Delivery O2 Flow Rate FiO2 01/22/17 08:02 36.3 63 20 158/74 (102) 96 Nasal Cannula 5.0 166/73 (104) 01/22/17 05:55 36.1 58 11 188/85 (119) 96 01/22/17 05:40 40 01/22/17 04:12 40 01/22/17 04:00 40 01/22/17 04:00 35.6 46 14 159/69 (99) 97 Mechanical Ventilator 01/22/17 04:00 96 Mechanical Ventilator 40 01/22/17 03:00 35.4 44 14 154/67 (96) 98 01/22/17 02:15 35.3 48 14 161/72 97 01/22/17 02:00 35.2 46 14 154/66 (95) 97 Mechanical Ventilator 01/22/17 01:53 35.2 47 14 156/68 97 01/22/17 01:30 35.1 47 14 154/67 97 01/22/17 01:22 40 01/22/17 00:53 35.1 47 14 138/59 97 01/22/17 00:35 35.1 49 14 138/59 (85) 96 01/22/17 00:23 35.1 50 14 133/57 97 01/22/17 00:11 35.0 52 14 143/62 (89) 97 01/22/17 00:08 35.0 55 14 145/63 96 01/22/17 00:05 35.0 58 11 132/64 (86) 92 01/22/17 00:00 40 01/22/17 00:00 96 Mechanical Ventilator 40 01/22/17 00:00 34.9 54 14 126/57 96 01/21/17 23:35 34.8 44 14 147/65 (92) 97 01/21/17 23:20 40 01/21/17 23:05 34.7 44 7 139/63 (88) 99 01/21/17 23:02 34.7 45 15 124/64 (84) 99 01/21/17 23:00 34.7 44 15 125/57 (79) 99 01/21/17 23:00 34.7 41 14 137/59 98 01/21/17 22:45 34.6 47 15 143/62 (89) 98 01/21/17 22:30 34.6 52 14 155/70 98 01/21/17 22:30 34.6 53 14 155/71 (99) 100 Notes Mental Status: see Notes (vented, NTG gtt and Diprivan gtt infusing) Nausea / Vomiting: adequately controlled Pain: adequately controlled Airway Patency, RR, SpO2: stable & adequate BP & HR: stable & adequate Hydration State: stable & adequate Anesthetic Complications: no major complications apparent
--- NOTE | 2017-01-22 10:56 | ECHOCARDIOGRAM REPORT ---
*NOTICE TO RECEIVING [employer]Y This information is strictly Confidential and protected under [place] law. [place] law prohibits you from making any further disclosure of this information unless further disclosure is expressly permitted by the written consent of the person to whom it pertains or is authorized by law. A general authorization for the release of medical or other information is not sufficient for this purpose. Hospital accepts no responsibility if the information is made available to any other person, INCLUDING THE PATIENT. Interpretation Summary * Name: DAI CARROEN Study Date: 01/22/2017 09:21 AM BP: 148/83 mmHg * Patient Location: .[facility]ICU\S\E106\S\1 HR: 58 * : 1945 (M/d/yyyy) Gender: Male Height: 71 in * Age: 71 yrs Ethnicity: CA Weight: 292 lb * Ordering Physician: Vivian Burnett * Referring Physician: Self, Referred * Performed By: Trina Wolfe RCS * * Reason For Study: ASSESS EF * BSA: 2.5 m2 * -- Conclusions -- * Limited views were obtained. * Left ventricular systolic function is mildly reduced. * There are regional wall motion abnormalities as specified. * The left atrium is severely dilated. Procedure Details * Limited views were obtained. * A contrast injection of Definity was performed to improve assessment of LV function. * Contrast was injected into an intravenous site in the right arm. * One vial of Definity ultrasound contrast was diluted in normal saline to a total volume of 10 ml. A total of '3' ml of solution was administered during imaging. * Lot # [id number] of Definity utilized for procedure. * Expiration date FEB 01. * The attending nurse who injected the contrast agent was SP GONZALEZ, RN. Left Ventricle * Left ventricular systolic function is mildly reduced. * Ejection Fraction = 40-45%. * There are regional wall motion abnormalities as specified. * Overall there was poor endocardial definition. There appears to be mild inferior hypokinesis from the mid ventricle to the apex with more moderate hypokinesis involving the basal inferior segements. Atria * The left atrium is severely dilated. Mitral Valve * The mitral valve is grossly normal. Aortic Valve * The aortic valve is not well visualized. * The aortic valve opens well. Pericardium/Pleural * There is no pericardial effusion. MMode 2D Measurements and Calculations IVSd 1.5 cm IVSs 1.9 cm % IVS thick 31.8 % Ao root diam 3.3 cm Ao root area 8.7 cm\S\2 LA dimension 6.0 cm LA/Ao 1.8 LVOT diam 2.0 cm LVOT area 3.0 cm\S\2 LVAd ap4 46.7 cm\S\2 LVLd ap4 9.9 cm EDV(MOD-sp4) 178.3 ml EDV(sp4-el) 186.6 ml LVAs ap4 29.5 cm\S\2 LVLs ap4 8.1 cm ESV(MOD-sp4) 91.2 ml ESV(sp4-el) 91.3 ml EF(MOD-sp4) 48.8 % EF(sp4-el) 51.1 % LVAd ap2 36.2 cm\S\2 LVLd ap2 8.8 cm EDV(MOD-sp2) 129.3 ml EDV(sp2-el) 126.3 ml LVAs ap2 23.4 cm\S\2 LVLs ap2 7.3 cm ESV(MOD-sp2) 67.2 ml ESV(sp2-el) 63.8 ml EF(MOD-sp2) 48.0 % EF(sp2-el) 49.5 % LVLd %diff -12.58 % EDV(MOD-bp) 161.6 ml LVLs %diff -10.54 % ESV(MOD-bp) 82.5 ml EF(MOD-bp) 49.0 % SV(MOD-sp4) 87.1 ml SI(MOD-sp4) 35.2 ml/m\S\2 SV(MOD-sp2) 62.1 ml SI(MOD-sp2) 25.1 ml/m\S\2 SV(MOD-bp) 79.1 ml SI(MOD-bp) 32.0 ml/m\S\2 SV(sp4-el) 95.2 ml SI(sp4-el) 38.5 ml/m\S\2 SV(sp2-el) 62.5 ml SI(sp2-el) 25.3 ml/m\S\2
[2017-01-22] MEDS ORDERED: PANTOprazole INJ 40 MG in SYRINGE 0 ML IV SCH (11:00)
--- NOTE | 2017-01-22 11:28 | Pharmacy Progress Note ---
Glycemic Control Intl Consult Date of Service Jan 22, 2017. Scope Glycemic Pharmacist consulted by Ashlie Sexton PA-C on 01/21/17 for glycemic control and to write orders per [facility] inpatient glycemic control protocol Objective Weight (Kilograms): 132.800 Accuchecks BSG (last 24hrs): Test 01/21/17 15:00 01/21/17 21:30 01/22/17 00:14 01/22/17 05:50 Random Glucose 132 mg/dl (70-99) 135 mg/dl (70-99) 149 mg/dl (70-99) Bedside Glucose 155 mg/dl (70-99) Test 01/22/17 06:16 Bedside Glucose 161 mg/dl (70-99) Laboratory Data (last 24hrs) Test 01/21/17 15:00 01/21/17 15:19 01/21/17 19:39 01/21/17 21:30 Anion Gap 8.0 mmol/L 17.0 mmol/L 15.0 mmol/L 10.0 mmol/L BUN/Creatinine Ratio 14.6 15.6 Blood Urea Nitrogen 15 mg/dl 14 mg/dl Creatinine 1.00 mg/dl 0.89 mg/dl Potassium Level 3.5 mmol/L 3.6 mmol/L Sodium Level 145 mmol/L 146 mmol/L White Blood Count 8.59 K/uL 10.66 K/uL Red Blood Count 3.94 M/uL 3.42 M/uL Hemoglobin 11.3 g/dL 9.8 g/dL Hematocrit 36.4 % 31.2 % Mean Corpuscular Volume 92.4 fL 91.2 fL Mean Corpuscular Hemoglobin 28.7 pg 28.7 pg Mean Corpuscular Hemoglobin Concent 31.0 g/dl 31.4 g/dl Platelet Count 272 K/uL 147 K/uL Mean Platelet Volume 9.9 fL 9.4 fL Neutrophils (%) (Auto) 61.7 % 83.8 % Lymphocytes (%) (Auto) 22.4 % 6.3 % Monocytes (%) (Auto) 8.0 % 6.8 % Eosinophils (%) (Auto) 6.4 % 2.3 % Basophils (%) (Auto) 1.3 % 0.5 % Neutrophils # (Auto) 5.30 K/uL 8.94 K/uL Lymphocytes # (Auto) 1.92 K/uL 0.67 K/uL Monocytes # (Auto) 0.69 K/uL 0.73 K/uL Eosinophils # (Auto) 0.55 K/uL 0.24 K/uL Basophils # (Auto) 0.11 K/uL 0.05 K/uL Test 01/22/17 02:03 01/22/17 05:50 Creatinine 0.95 mg/dl 1.10 mg/dl Anion Gap 9.0 mmol/L BUN/Creatinine Ratio 12.8 Blood Urea Nitrogen 14 mg/dl Potassium Level 3.6 mmol/L Sodium Level 145 mmol/L White Blood Count 10.70 K/uL Red Blood Count 3.77 M/uL Hemoglobin 11.3 g/dL Hematocrit 34.2 % Mean Corpuscular Volume 90.7 fL Mean Corpuscular Hemoglobin 30.0 pg Mean Corpuscular Hemoglobin Concent 33.0 g/dl Platelet Count 125 K/uL Mean Platelet Volume 9.6 fL Neutrophils (%) (Auto) 84.9 % Lymphocytes (%) (Auto) 5.7 % Monocytes (%) (Auto) 7.6 % Eosinophils (%) (Auto) 1.1 % Basophils (%) (Auto) 0.3 % Neutrophils # (Auto) 9.09 K/uL Lymphocytes # (Auto) 0.61 K/uL Monocytes # (Auto) 0.81 K/uL Eosinophils # (Auto) 0.12 K/uL Basophils # (Auto) 0.03 K/uL Recent Pertinent Medications Outpatient Anti-diabetic Regimen: * Does not take diabetes medications as an outpatient The patient is currently receiving: * Basal insulin: * none at time of consult * Bolus insulin: * none at time of consult Risk Factors for Insulin Resistance: * Steroids: Prednisone 5mg PO daily resumed from home medication list * Pressors: nitroglycerine gtt, phenylephrine gtt * IVF: D5W 1/2NSS @ 150mL/hr --> 100mL/hr * Recent Surgery: AAA repair 01/21/17 * Diet: NPO * Mechanical Ventilation: extubated 6/8 AM Assessment & Plan ASSESSMENT: * ADA & AACE recommend a goal blood sugar range 140-180 mg/dl for the majority of critically ill & non-critically ill patients. However, more stringent targets may be selected in individual cases. Initial: * non-diabetic male admitted to the ICU post-procedure on the evening of 01/21 * dextrose IV fluids, vasopressors, and intubation/sedation all have likelihood of increasing BSGs * NovoLog sliding scale started overnight - no insulin required 01/22/17 * Mr. Chung has been extubated and his sedation stopped * IV dextrose fluids have been decreased from 150mL/hr --> 100mL/hr * home dose of Prednisone resumed today * Fasting BSG 149mg/dL (within goal) * continue NovoLog at this time based on weight and a stress of 2 * forgo basal insulin until BSG >180mg/dL * diet remains NPO PLAN FOR INPATIENT GLYCEMIC CONTROL: * Basal insulin: * forgo at this time * Bolus insulin: * NovoLog SQ every 6 hours while NPO (AC/HS when diet ordered) - CF: 20mg/dL/unit - CR: may need a carb ratio added (1 unit per 8g of CHO consumed) if/ when diet ordered - Goal: 140-180mg/dL per ADA recommendations * A1c outdated * order with AM labs * add to discharge instructions * Please note that the plan above was derived based on current level of insulin resistance and hospital stress. These recommendations are appropriate for inpatient admission only. Plan of care upon discharge will need to be reassessed to avoid potential outpatient hypo/hyperglycemia. Thank you.
[2017-01-22] MEDS: MULTIVITAMIN TAB PO SCH (11:49)
[2017-01-22] MEDS: ASPIRIN 81 MG ECTAB PO SCH (11:50)
[2017-01-22] MEDS: LEVOTHYROXINE 100 MCG TAB PO SCH (11:50)
[2017-01-22] MEDS: CLOPIDOGREL BISULFATE 75 MG TAB PO SCH (11:50)
[2017-01-22] MEDS: CITALOPRAM 40 MG TAB PO SCH (11:50)
[2017-01-22] MEDS: DOCUSATE SODIUM 100 MG CAP PO SCH (11:51)
[2017-01-22] MEDS: ACETAMINOPHEN 500 MG TAB PO PRN ×2 (11:56→21:36)
[2017-01-22] MEDS: HEPARIN SOD 5000 UNIT/0.5 ML CARP SQ SCH ×2 (12:39→21:39)
[2017-01-22] MEDS ORDERED: CARVEDILOL 12.5 MG TAB PO ONE (15:14)
[2017-01-22 15:43] LABS: ISTAT ARTERIAL BLOOD GAS PCO2 54 mmHg (35-46); ISTAT ARTERIAL BLOOD GAS PO2 108 mmHg (80-95); ISTAT ARTERIAL BLOOD GAS pH 7.28 (7.35-7.45)
[2017-01-22 15:45] LABS: ISTAT CARBON DIOXIDE 27 mEq/l (24-31)
[2017-01-22 15:46] LABS: ISTAT ARTERIAL BLOOD GAS HCO3 26 meq/L (19-24); ISTAT DELIVERY SYSTEM Ventilator; ISTAT FIO2 40 %; ISTAT SAMPLE TYPE ARTERIAL; ISTAT SITE Art Line
[2017-01-22 15:47] LABS: ISTAT PEEP 5; PRESSURE 5
[2017-01-22 15:48] LABS: ISTAT SPO2 96 %
[2017-01-22] MEDS: ONDANSETRON INJ 2 MG/ML 2 ML VIAL IV PRN (16:57)
[2017-01-22] MEDS: MoRPHine SULFATE 4 MG/ML 1 ML CARP\\VIAL IV PRN ×2 (18:15→21:36)
--- NOTE | 2017-01-22 18:58 | Procedure Note ---
Procedure Note Procedure Date Jan 22, 2017. Central Line Procedure time out: side/site verified, patient ID confirmed, sterile procedure used Consent obtained: written, emergent consent implied Performed by: attending Indications: central drug admin., other (rapid infusion) Prep: chlorhexadine prep, sterile drape, sterile procedures used Anesthesia: local injection, lidocaine 1% without epi Volume anesthetic (ml's): 3 Central line lumen: single (9 maltese MAC) Central line location: subclavian (R) Additional details: percutaneous placement, Selinger technique used, line sutured, good blood return CXR: no pneumothorax Complications: none Patient tolerated procedure: well Post-procedure vital signs: reviewed and stable
[2017-01-22] MEDS ORDERED: CARVEDILOL 12.5 MG TAB PO SCH (21:00)
[2017-01-22] MEDS: METOPROLOL TARTRATE 1 MG/ML VIAL IV PRN (21:37)
[2017-01-22] MEDS: SIMVASTATIN 20 MG TAB PO SCH (21:37)
[2017-01-23] VITALS (21 sets, daily range): BP systolic 127–178; BP diastolic 52–93; PULSE 54–75; TEMP 36.5–37.1; O2SAT 88–95
[2017-01-23] MEDS: MoRPHine SULFATE 4 MG/ML 1 ML CARP\\VIAL IV PRN ×4 (04:10→21:08)
[2017-01-23] MEDS: HEPARIN SOD 5000 UNIT/0.5 ML CARP SQ SCH ×3 (05:16→22:52)
[2017-01-23] MEDS: METOPROLOL TARTRATE 1 MG/ML VIAL IV PRN (05:16)
[2017-01-23] MEDS: LEVOTHYROXINE 100 MCG TAB PO SCH (05:16)
[2017-01-23 06:07] LABS: BASO % 0.3 %; BASO ABS # 0.03 K/uL (0-0.2); COMPLETE YES; EOS % 3.1 %; HEMATOCRIT 33.9 % (42-52); IG% 0.3 %; LYMPH % 5.9 %; LYMPH ABS # 0.66 K/uL (1.2-3.4); MEAN CELL VOLUME 91.4 fL (80-100); MEAN CORPUSCULAR HEMOGLOBIN 29.4 pg (25-34); MEAN CORPUSCULAR HGB CONC 32.2 g/dl (32-36); MEAN PLATELET VOLUME 9.6 fL (7.4-10.4); MONO % 7.9 %; NEUT % 82.5 %; PLATELET COUNT 102 K/uL (130-400); RED BLOOD COUNT 3.71 M/uL (4.7-6.1); WHITE BLOOD COUNT 11.25 K/uL (4.8-10.8)
[2017-01-23] MEDS: INSULIN ASPART 100 UNITS/ML 3 ML PEN SC SCH ×4 (06:20→21:00)
[2017-01-23 06:39] LABS: ESTIMATED AVERAGE GLUCOSE 111 mg/dl; HA1C FLAG Normal (Normal)
[2017-01-23 06:44] LABS: BUN/CREATININE RATIO 10.7 (10-20); POTASSIUM 3.5 mmol/L (3.5-5.1)
[2017-01-23] MEDS ORDERED: POTASSIUM CHLR 20 MEQ / WTR 20 MEQ in PREMIXED WATER 100 ML IV SCH (07:00)
[2017-01-23] MEDS: CLOPIDOGREL BISULFATE 75 MG TAB PO SCH (07:44)
[2017-01-23] MEDS: CITALOPRAM 40 MG TAB PO SCH (07:44)
[2017-01-23] MEDS: ASPIRIN 81 MG ECTAB PO SCH (07:44)
[2017-01-23] MEDS: CARVEDILOL 25 MG TAB PO SCH ×2 (07:45→21:13)
[2017-01-23] MEDS: PANTOprazole SOD 40 MG TAB PO SCH (07:45)
[2017-01-23] MEDS: DOCUSATE SODIUM 100 MG CAP PO SCH (07:46)
[2017-01-23] MEDS ORDERED: BISACODYL 5 MG TABEC PO ONE (08:15)
[2017-01-23] MEDS ORDERED: POTASSIUM CHLORIDE 20 MEQ TABCR PO ONE ×2 (08:30→12:30)
[2017-01-23] MEDS ORDERED: D5W AND 1/2NSS 1,000 ML IV SCH (08:45)
--- NOTE | 2017-01-23 09:08 | Pharmacy Progress Note ---
Glycemic Control: Progress Nt Date of Service Jan 23, 2017. Scope Glycemic Pharmacist consulted by Ashlie Sexton on 01/21/17 for glycemic control and to write orders per [facility] inpatient glycemic control protocol. Objective Accuchecks BSG (last 24hrs): Test 01/22/17 11:55 01/22/17 16:51 01/22/17 21:28 01/23/17 05:45 Bedside Glucose 122 mg/dl (70-99) 130 mg/dl (70-99) 108 mg/dl (70-99) Random Glucose 103 mg/dl (70-99) Test 01/23/17 05:52 Bedside Glucose 106 mg/dl (70-99) Laboratory Data (last 24hrs) Test 01/23/17 05:45 Anion Gap 8.0 mmol/L BUN/Creatinine Ratio 10.7 Blood Urea Nitrogen 11 mg/dl Creatinine 1.00 mg/dl Hemoglobin A1c 5.5 % Potassium Level 3.5 mmol/L Sodium Level 144 mmol/L White Blood Count 11.25 K/uL Red Blood Count 3.71 M/uL Hemoglobin 10.9 g/dL Hematocrit 33.9 % Mean Corpuscular Volume 91.4 fL Mean Corpuscular Hemoglobin 29.4 pg Mean Corpuscular Hemoglobin Concent 32.2 g/dl Platelet Count 102 K/uL Mean Platelet Volume 9.6 fL Neutrophils (%) (Auto) 82.5 % Lymphocytes (%) (Auto) 5.9 % Monocytes (%) (Auto) 7.9 % Eosinophils (%) (Auto) 3.1 % Basophils (%) (Auto) 0.3 % Neutrophils # (Auto) 9.29 K/uL Lymphocytes # (Auto) 0.66 K/uL Monocytes # (Auto) 0.89 K/uL Eosinophils # (Auto) 0.35 K/uL Basophils # (Auto) 0.03 K/uL HbA1c: Test 01/23/17 05:45 Hemoglobin A1c 5.5 % (4.5-5.6) Recent Pertinent Medications Outpatient Anti-diabetic Regimen: * Does not take diabetes medications as an outpatient The patient is currently receiving: * Basal insulin: * none at time of consult * Bolus insulin: * NovoLog SQ AC and HS - CF: 20mg/dL/unit - CR: none at this time - Goal: 140-180mg/dL Risk Factors for Insulin Resistance: * Steroids: Prednisone 5mg PO daily resumed from home medication list * IVF: D5W 1/2NSS @ 75mL/hr * Recent Surgery: AAA repair 01/21/17 * Diet: Full liquid * Mechanical Ventilation: extubated 6/8 AM Assessment & Plan ASSESSMENT: * ADA & AACE recommend a goal blood sugar range 140-180 mg/dl for the majority of critically ill & non-critically ill patients. However, more stringent targets may be selected in individual cases. Initial: * non-diabetic male admitted to the ICU post-procedure on the evening of 01/21 * NovoLog sliding scale currently 01/23/17 * Mr. Chung has been extubated and his sedation stopped * IV dextrose fluids have been decreased from 150mL/hr --> 100mL/hr --> 75mL/hr * home dose of Prednisone resumed * Fasting BSG 106mg/dL * continue NovoLog at this time based on weight and a stress of 2 * forgo basal insulin until BSG >180mg/dL * diet advanced to full liquid PLAN FOR INPATIENT GLYCEMIC CONTROL: * Basal insulin: * forgo at this time * Bolus insulin: * NovoLog SQ AC and HS - CF: 20mg/dL/unit - CR: continue to forgo - Goal: 140-180mg/dL per ADA recommendations * A1c current and is WNL at 5.5% RECOMMENDATIONS FOR DISCHARGE: * A1c is normal and does not indicated diabetes, therefore no diabetic medications indicated at discharge. * Please note that the plan above was derived based on current level of insulin resistance and hospital stress. These recommendations are appropriate for inpatient admission only. Plan of care upon discharge will need to be reassessed to avoid potential outpatient hypo/hyperglycemia. Thank you.
[2017-01-23] MEDS ORDERED: NITROGLYCERIN 0.4 MG SL PER TAB CHARGE SL PRN (10:00)
--- NOTE | 2017-01-23 10:16 | Critical Care Progress Note ---
Critical Care Progress Note Date of Service Jan 23, 2017. ICU Day ICU Day Number: [address] Renteria Subjective Feels well today, denied any pain Got out of bed to chair yesterday Objective GENERAL: Awake, alert, in no acute distress HENT: Normocephalic, atraumatic. Oropharynx unremarkable. On 4L NC. EYES: Normal conjunctiva. Sclera non-icteric. NECK: Supple. No nuchal rigidity. FROM. No JVD. RESPIRATORY: Clear to auscultation. CARDIAC: Regular rate, normal rhythm. Extremities warm and well perfused. Pulses equal. ABDOMEN: Soft, non-distended. No tenderness to palpation. No rebound or guarding. No masses. MUSCULOSKELETAL: Chest examination reveals no tenderness. No joint edema. LOWER EXTREMITIES: Calves are equal size bilaterally and non-tender. No edema. No discoloration. L great toe surgically removed previously. NEURO: Normal sensorium. No sensory or motor deficits noted. SKIN: No rash or jaundice noted. Current SOFA Score SOFA Score Response (Comments) Value Platelets (x10) < 150 1 Bilirubin (mg/dL) < 1.2 0 [place] Coma Score 15 0 Level of Hypotension No Hypotension 0 Creatinine (mg/dL) < 1.2 0 Total 1 Assessment & Plan 71 yo M with multiple co-morbidities (CAD s/p CABG, T2DM, hyperlipidemia, hypertension), with acute blood loss anemia from ruptured AAA requiring tranfusion, day 2 s/p percutaneous AAA repair CVS: R subclavian line inserted by Dr Renteria 01/21/17 - Can be removed today Will restart all home meds today, including antihypertensives - Lasix 40, Lisinopril 40, Simvastatin 20, Plavix, Aspirin Has PRN Metoprolol for HR > 180, last received this AM NEURO: CAM negative, continue to monitor HEME: Platelets dropped today Will order PF4 antibodies, and hold Heparin until this is back RESP: Continue to monitor GI: Full liquid diet Dulcolax for constipation Will provide KCl PO to help with this as well RENAL Fluids down to 75mL/hour Will provide another 60mEq KCL PO today Stopped IV infusion as this was burning his subclavian site ENDO Will restart home dose of steroids RHEUM Will restart plaquanil today Restart MTX next week, Takes weekly on . DISPO Patient stable to be transferred out of ICU today. Please do not hesitate to contact us with any questions or concerns. CODE STATUS: FULL Resident Physician Supervision Note: Dr. Burnett was resident physician during care of patient. I separately evaluated patient and did history and exam. I discussed the case with the resident and generally agree with the findings and plan. Cardiovascular: Restarted home medications for better blood pressure control Heme: HIT score: 2, held morning dose of heparin, will check PF4 panel, patient with SCDs and meantime. This was negative and have restarted heparin prophylaxis Renal: Patient complains of potassium burning at central venous access site, placement discontinued and converted to enteral supplementation, Patient's creatinine 1.0, estimated creatinine clearance 97, FLORECITA score 11 now approximately 36 hours from contrast administration, risk of contrast- induced nephropathy leading to dialysis approximately 1%. Patient adequately volume expanded and now likely approaching volume overload which places patient at risk for impaired renal blood flow, oxygen delivery given cardiac history and echo findings. Cumulative fluid balance per I knows, 5.8 L positive, 2.4 kg weight gain since ED admission. Will discontinue supplemental IV fluid and restart patient's home diuretic dose. CVS: Restarted home medications. Endo: on daily steroids Stable for downgrade, discussed this case with Dr. Fernandez Documented By: Martin Renteria, Consults & Procedures Consultants: Dr Fernandez, Vascular Surg Procedures: AAA Repair, 01/21/17 Data Medications: Current Inpatient Medications Medications (Trade) Dose Ordered Sig/Kavya Route Start Time Stop Time Status Last Admin Dose Admin Ioversol (Optiray 320) 125 ml UD PRN IV 01/21/17 15:30 01/25/17 15:29 Morphine Sulfate (MoRPHine SULFATE INJ) 4 mg Q2H PRN IV 01/21/17 20:30 02/04/17 20:29 01/23/17 09:14 4 MG Ondansetron HCl (Zofran Inj) 4 mg Q6H PRN IV 01/21/17 20:30 02/20/17 20:29 01/22/17 16:57 4 MG Metoprolol Tartrate (Lopressor Iv) 5 mg Q10M PRN IV 01/21/17 20:30 02/20/17 20:29 01/23/17 05:16 5 MG Miscellaneous Information (Consult Glycemic Management Pharmacy) 1 ea UD PRN N/A 01/21/17 22:30 02/20/17 22:29 Glucose (Glucose 40% Gel) 15-30 GRAMS 15 GRAMS... UD PRN PO 01/21/17 22:30 02/20/17 22:29 Glucose (Glucose Chew Tab) 4-8 Tablets 4 Tabl... UD PRN PO 01/21/17 22:30 02/20/17 22:29 Dextrose (Dextrose 50% 50ML Syringe) 25-50ML OF 50% DW IV FOR... UD PRN IV 01/21/17 22:30 02/20/17 22:29 Glucagon (Glucagon Inj) 1 mg UD PRN SQ 01/21/17 22:30 02/20/17 22:29 Simvastatin (Zocor Tab) 20 mg PM PO 01/22/17 21:00 02/21/17 20:59 01/22/17 21:37 20 MG Heparin Sodium (Porcine) (Heparin Sq 5000 Unit/0.5ml) 5,000 unit Q8 SQ 01/22/17 14:00 02/21/17 13:59 Future Hold 01/23/17 05:16 5,000 UNIT Pantoprazole Sodium (Protonix Tab) 40 mg QAM PO 01/22/17 09:00 02/21/17 08:59 01/23/17 07:45 40 MG Clopidogrel Bisulfate (plAVix TAB) 75 mg QAM PO 01/22/17 10:30 02/21/17 10:29 01/23/17 07:44 75 MG Aspirin (Ecotrin Tab) 81 mg QAM PO 01/22/17 10:30 02/21/17 10:29 01/23/17 07:44 81 MG Prednisone (PredniSONE TAB) 5 mg DAILY PO 01/22/17 10:30 02/21/17 10:29 01/23/17 07:46 5 MG Citalopram Hydrobromide (celeXA TAB) 40 mg DAILY PO 01/22/17 10:30 02/21/17 10:29 01/23/17 07:44 40 MG Docusate Sodium (coLACE CAP) 100 mg DAILY PO 01/22/17 10:30 02/21/17 10:29 01/23/17 07:46 100 MG Folic Acid (Folvite Tab) 1 mg DAILY PO 01/22/17 10:30 02/21/17 10:29 01/23/17 07:46 1 MG Levothyroxine Sodium (Synthroid Tab) 100 mcg DAILYBB PO 01/22/17 10:30 02/21/17 10:29 01/23/17 05:16 100 MCG Multivitamins (Multivitamin Tab) 1 tab QAM PO 01/22/17 10:30 02/21/17 10:29 01/22/17 11:49 1 TAB Acetaminophen (Tylenol Tab) 1,000 mg Q8 PRN PO 01/22/17 11:45 02/21/17 11:44 01/22/17 21:36 1,000 MG Insulin Aspart (novoLOG ASPART) SLIDING SCALE ACHS SC 01/22/17 16:00 02/21/17 15:59 Carvedilol (Coreg Tab) 25 mg BID PO 01/23/17 09:00 02/21/17 20:59 01/23/17 07:45 25 MG Bisacodyl (Dulcolax Tab) 5 mg QAM PO 01/24/17 09:00 02/23/17 08:59 Oxycodone/ Acetaminophen (Percocet 5-325mg Tab) 1 tab Q4H PRN PO 01/23/17 08:45 02/06/17 08:44 Furosemide (Lasix Tab) 40 mg BID17 PO 01/23/17 17:00 02/22/17 16:59 Hydroxychloroquine Sulfate (Plaquenil Tab) 400 mg DAILY PO 01/24/17 09:00 02/23/17 08:59 Lisinopril (Zestril Tab) 40 mg DAILY PO 01/24/17 09:00 02/23/17 08:59 Nitroglycerin (Nitrostat Tab) 0.4 mg UD PRN SL 01/23/17 10:00 02/22/17 09:59 Potassium Chloride (Klor-Con Tab) 20 meq DAILY PO 01/24/17 09:00 02/23/17 08:59 Methotrexate (Methotrexate Tab) 25 mg Th@0900 PO 01/29/17 09:00 02/28/17 08:59 Vital Signs: Date Time Temp Pulse Resp B/P (MAP) Pulse Ox O2 Delivery O2 Flow Rate FiO2 01/23/17 06:02 69 22 170/73 93 166/77 01/23/17 05:16 73 180/81 01/23/17 05:02 73 22 177/76 94 173/78 01/23/17 04:31 72 24 167/73 94 163/83 01/23/17 04:02 67 30 169/71 91 178/93 01/23/17 04:00 36.8 01/23/17 04:00 92 Nasal Cannula 2.0 01/23/17 03:02 70 20 168/72 92 163/87 01/23/17 02:02 75 21 158/66 90 155/67 01/23/17 01:02 74 21 158/68 90 141/75 01/23/17 00:06 72 19 156/52 92 150/77 01/23/17 00:01 37.1 01/22/17 23:59 92 Nasal Cannula 2.0 01/22/17 23:03 75 21 145/60 91 178/69 01/22/17 22:00 72 22 159/69 (99) 92 Nasal Cannula 2.0 136/81 (99) 01/22/17 21:37 78 170/82 01/22/17 20:00 36.7 75 24 168/71 (103) 90 Room Air 160/78 (105) 01/22/17 20:00 91 Room Air 01/22/17 18:00 76 24 185/76 (112) 91 Room Air 186/71 (109) 01/22/17 16:00 36.6 69 15 160/65 (96) 91 Room Air 174/81 (112) 01/22/17 16:00 91 Room Air 01/22/17 14:02 58 21 171/78 (109) 92 Room Air 01/22/17 13:02 64 24 177/94 (121) 92 Room Air 01/22/17 12:02 36.5 57 22 165/76 (105) 93 Room Air 01/22/17 12:00 Room Air 01/22/17 11:02 58 15 161/83 (109) 91 Room Air 01/22/17 10:33 62 17 180/80 (113) 92 Nasal Cannula 2.0 Laboratory Results: Last 24 Hours Test 01/22/17 11:55 01/22/17 16:51 01/22/17 21:28 01/23/17 05:45 Bedside Glucose 122 mg/dl 130 mg/dl 108 mg/dl White Blood Count 11.25 K/uL Red Blood Count 3.71 M/uL Hemoglobin 10.9 g/dL Hematocrit 33.9 % Mean Corpuscular Volume 91.4 fL Mean Corpuscular Hemoglobin 29.4 pg Mean Corpuscular Hemoglobin Concent 32.2 g/dl Platelet Count 102 K/uL Mean Platelet Volume 9.6 fL Neutrophils (%) (Auto) 82.5 % Lymphocytes (%) (Auto) 5.9 % Monocytes (%) (Auto) 7.9 % Eosinophils (%) (Auto) 3.1 % Basophils (%) (Auto) 0.3 % Neutrophils # (Auto) 9.29 K/uL Lymphocytes # (Auto) 0.66 K/uL Monocytes # (Auto) 0.89 K/uL Eosinophils # (Auto) 0.35 K/uL Basophils # (Auto) 0.03 K/uL RDW Standard Deviation 54.0 fL RDW Coefficient of Variation 16.4 % Immature Granulocyte % (Auto) 0.3 % Immature Granulocyte # (Auto) 0.03 K/uL Sodium Level 144 mmol/L Potassium Level 3.5 mmol/L Chloride Level 110 mmol/L Carbon Dioxide Level 26 mmol/L Anion Gap 8.0 mmol/L Blood Urea Nitrogen 11 mg/dl Creatinine 1.00 mg/dl Est Creatinine Clear Calc Drug Dose 96.5 ml/min Estimated GFR () 88.0 Estimated GFR (Non- 75.9 BUN/Creatinine Ratio 10.7 Random Glucose 103 mg/dl Estimated Average Glucose 111 mg/dl Hemoglobin A1c 5.5 % Calcium Level 8.0 mg/dl Phosphorus Level 3.0 mg/dl Magnesium Level 2.0 mg/dl Test 01/23/17 05:52 01/23/17 09:00 Bedside Glucose 106 mg/dl Resident Tracking Resident Involvement: Resident Care Provided Care Provided: Adult Hospital Medicine
--- NOTE | 2017-01-23 10:50 | Progress Note ---
Progress Note Date of Service: Jan 23, 2017. Subjective 71 yo m POD #2 after PEVAR d/t ruptured 6cm AAA, seen in f/u today. Pt states fatigue and back pain present. Denies N/V, chest pain, SOB, leg or foot pain, numbness, MATA, fever, dizziness, other complaints. Problem List Medical Problems: (1) Altered mental status Status: Acute (2) Hypertension Status: Acute (3) Hypotension Status: Acute (4) Incarcerated umbilical hernia Status: Acute (5) Ruptured abdominal aortic aneurysm (AAA) Status: Acute (6) Small bowel obstruction Status: Acute (7) Syncope Status: Acute (8) Weakness on right side of face Status: Acute Objective Vital Signs Vital Signs Past 12 Hours Date Time Temp Pulse Resp B/P (MAP) Pulse Ox O2 Delivery O2 Flow Rate FiO2 01/23/17 06:02 69 22 170/73 93 166/77 01/23/17 05:16 73 180/81 01/23/17 05:02 73 22 177/76 94 173/78 01/23/17 04:31 72 24 167/73 94 163/83 01/23/17 04:02 67 30 169/71 91 178/93 01/23/17 04:00 36.8 01/23/17 04:00 92 Nasal Cannula 2.0 01/23/17 03:02 70 20 168/72 92 163/87 01/23/17 02:02 75 21 158/66 90 155/67 01/23/17 01:02 74 21 158/68 90 141/75 01/23/17 00:06 72 19 156/52 92 150/77 01/23/17 00:01 37.1 01/22/17 23:59 92 Nasal Cannula 2.0 01/22/17 23:03 75 21 145/60 91 178/69 Exam CONST: A&O x4, NAD, obese, mildly chronically ill appearing male CHEST: RRR lungs decreased, but ctab ABD: soft, + mild tenderness near groins and flank/back. EXT: VYAS, feet warm and pink, brisk cap refill, + pulses. Groins intact, + local tenderness and ecchymosis. No bleeding. Laboratory and Microbiology Results Past 24 Hours Test 01/22/17 11:55 01/22/17 16:51 01/22/17 21:28 01/23/17 05:45 Range/Units Bedside Glucose 122 130 108 70-99 mg/dl White Blood Count 11.25 4.8-10.8 K/uL Red Blood Count 3.71 4.7-6.1 M/uL Hemoglobin 10.9 14.0-18.0 g/dL Hematocrit 33.9 42-52 % Mean Corpuscular Volume 91.4 80-100 fL Mean Corpuscular Hemoglobin 29.4 25-34 pg Mean Corpuscular Hemoglobin Concent 32.2 32-36 g/dl Platelet Count 102 130-400 K/uL Mean Platelet Volume 9.6 7.4-10.4 fL Neutrophils (%) (Auto) 82.5 % Lymphocytes (%) (Auto) 5.9 % Monocytes (%) (Auto) 7.9 % Eosinophils (%) (Auto) 3.1 % Basophils (%) (Auto) 0.3 % Neutrophils # (Auto) 9.29 1.4-6.5 K/uL Lymphocytes # (Auto) 0.66 1.2-3.4 K/uL Monocytes # (Auto) 0.89 0.11-0.59 K/uL Eosinophils # (Auto) 0.35 0-0.5 K/uL Basophils # (Auto) 0.03 0-0.2 K/uL RDW Standard Deviation 54.0 36.4-46.3 fL RDW Coefficient of Variation 16.4 11.5-14.5 % Immature Granulocyte % (Auto) 0.3 % Immature Granulocyte # (Auto) 0.03 0.00-0.02 K/uL Sodium Level 144 136-145 mmol/L Potassium Level 3.5 3.5-5.1 mmol/L Chloride Level 110 98-107 mmol/L Carbon Dioxide Level 26 21-32 mmol/L Anion Gap 8.0 3-11 mmol/L Blood Urea Nitrogen 11 7-18 mg/dl Creatinine 1.00 0.60-1.40 mg/dl Est Creatinine Clear Calc Drug Dose 96.5 ml/min Estimated GFR () 88.0 Estimated GFR (Non- 75.9 BUN/Creatinine Ratio 10.7 10-20 Random Glucose 103 70-99 mg/dl Estimated Average Glucose 111 mg/dl Hemoglobin A1c 5.5 4.5-5.6 % Calcium Level 8.0 8.5-10.1 mg/dl Phosphorus Level 3.0 2.5-4.9 mg/dl Magnesium Level 2.0 1.8-2.4 mg/dl Test 01/23/17 05:52 01/23/17 09:00 Range/Units Bedside Glucose 106 70-99 mg/dl ASSESSMENT and PLAN: s/p PEVAR d/t ruptured AAA Ruptured 6cm AAA Pt improving and appears stable post op. Ok for transfer to PCU per Jim. Continue to monitor.
[2017-01-23] MEDS: LISINOPRIL 40 MG TAB PO SCH (12:11)
[2017-01-23] MEDS: MULTIVITAMIN TAB PO SCH (12:14)
[2017-01-23] MEDS ORDERED: NURSING VERBAL MED ORDER ONE (12:15)
[2017-01-23] MEDS ORDERED: BISACODYL 5 MG TABEC ONE (12:20)
[2017-01-23] MEDS ORDERED: FUROSEMIDE 40 MG TAB PO ONE (12:30)
[2017-01-23] MEDS: OXYCODONE/ACETAMINOPHEN 5-325 TAB PO PRN ×2 (12:54→18:14)
[2017-01-23] MEDS: FUROSEMIDE 40 MG TAB PO SCH (17:16)
[2017-01-23] MEDS: SIMVASTATIN 20 MG TAB PO SCH (21:12)
[2017-01-24] VITALS (8 sets, daily range): BP systolic 94–174; BP diastolic 47–81; PULSE 50–78; TEMP 36.8–37.5; O2SAT 92–96
[2017-01-24 05:58] LABS: BASO % 0.2 %; BASO ABS # 0.02 K/uL (0-0.2); COMPLETE YES; EOS % 3.4 %; HEMATOCRIT 33.9 % (42-52); IG% 0.2 %; LYMPH % 6.6 %; LYMPH ABS # 0.65 K/uL (1.2-3.4); MEAN CELL VOLUME 93.9 fL (80-100); MEAN CORPUSCULAR HEMOGLOBIN 29.6 pg (25-34); MEAN CORPUSCULAR HGB CONC 31.6 g/dl (32-36); MEAN PLATELET VOLUME 9.7 fL (7.4-10.4); MONO % 9.3 %; NEUT % 80.3 %; PLATELET COUNT 107 K/uL (130-400); RED BLOOD COUNT 3.61 M/uL (4.7-6.1); WHITE BLOOD COUNT 9.88 K/uL (4.8-10.8)
[2017-01-24] MEDS: LEVOTHYROXINE 100 MCG TAB PO SCH (06:07)
[2017-01-24] MEDS: HEPARIN SOD 5000 UNIT/0.5 ML CARP SQ SCH (06:08)
[2017-01-24 06:26] LABS: BUN/CREATININE RATIO 11.5 (10-20); CALCIUM 8.1 mg/dl (8.5-10.1); POTASSIUM 3.9 mmol/L (3.5-5.1)
[2017-01-24] MEDS: CITALOPRAM 40 MG TAB PO SCH (07:43)
[2017-01-24] MEDS: PANTOprazole SOD 40 MG TAB PO SCH (07:43)
[2017-01-24] MEDS: MULTIVITAMIN TAB PO SCH (07:43)
[2017-01-24] MEDS: CARVEDILOL 25 MG TAB PO SCH ×2 (07:43→20:36)
[2017-01-24] MEDS: DOCUSATE SODIUM 100 MG CAP PO SCH (07:44)
[2017-01-24] MEDS: ASPIRIN 81 MG ECTAB PO SCH (07:44)
[2017-01-24] MEDS: HYDROXYCHLOROQUINE SULFATE 200 MG TAB PO SCH (07:44)
[2017-01-24] MEDS: CLOPIDOGREL BISULFATE 75 MG TAB PO SCH (07:44)
[2017-01-24] MEDS: FUROSEMIDE 40 MG TAB PO SCH ×2 (07:45→16:46)
[2017-01-24] MEDS ORDERED: BISACODYL 5 MG TABEC ONE (07:49)
[2017-01-24] MEDS: BISACODYL 5 MG TABEC PO SCH (07:50)
[2017-01-24] MEDS: INSULIN ASPART 100 UNITS/ML 3 ML PEN SC SCH (07:50)
--- NOTE | 2017-01-24 08:48 | Progress Note ---
Progress Note Date of Service: Jan 24, 2017. Subjective Awake and alert. Eating better Problem List Medical Problems: (1) Altered mental status Status: Acute (2) Hypertension Status: Acute (3) Hypotension Status: Acute (4) Incarcerated umbilical hernia Status: Acute (5) Ruptured abdominal aortic aneurysm (AAA) Status: Acute (6) Small bowel obstruction Status: Acute (7) Syncope Status: Acute (8) Weakness on right side of face Status: Acute Objective Vital Signs Vital Signs Past 12 Hours Date Time Temp Pulse Resp B/P (MAP) Pulse Ox O2 Delivery O2 Flow Rate FiO2 01/24/17 08:01 37.2 78 18 133/72 (92) 95 Nasal Cannula 2.0 01/24/17 04:00 Nasal Cannula 2.0 01/24/17 03:23 37.5 75 18 145/54 (84) 96 Nasal Cannula 1.5 01/24/17 00:00 Nasal Cannula 2.0 01/23/17 23:40 36.5 69 20 127/62 (83) 92 Nasal Cannula 1.5 Exam VSS Afebrile. Awake and alert Abd soft. No pain Groins with dressing still on. No swelling appreciated Good urine output with normal creatinine Laboratory and Microbiology Results Past 24 Hours Test 01/23/17 09:00 01/23/17 12:17 01/23/17 16:14 01/23/17 20:36 Range/Units Heparin-PF4 Antibody Screen NEG NEG Bedside Glucose 151 127 147 70-99 mg/dl Test 01/24/17 05:40 01/24/17 06:57 Range/Units White Blood Count 9.88 4.8-10.8 K/uL Red Blood Count 3.61 4.7-6.1 M/uL Hemoglobin 10.7 14.0-18.0 g/dL Hematocrit 33.9 42-52 % Mean Corpuscular Volume 93.9 80-100 fL Mean Corpuscular Hemoglobin 29.6 25-34 pg Mean Corpuscular Hemoglobin Concent 31.6 32-36 g/dl Platelet Count 107 130-400 K/uL Mean Platelet Volume 9.7 7.4-10.4 fL Neutrophils (%) (Auto) 80.3 % Lymphocytes (%) (Auto) 6.6 % Monocytes (%) (Auto) 9.3 % Eosinophils (%) (Auto) 3.4 % Basophils (%) (Auto) 0.2 % Neutrophils # (Auto) 7.93 1.4-6.5 K/uL Lymphocytes # (Auto) 0.65 1.2-3.4 K/uL Monocytes # (Auto) 0.92 0.11-0.59 K/uL Eosinophils # (Auto) 0.34 0-0.5 K/uL Basophils # (Auto) 0.02 0-0.2 K/uL RDW Standard Deviation 56.0 36.4-46.3 fL RDW Coefficient of Variation 16.3 11.5-14.5 % Immature Granulocyte % (Auto) 0.2 % Immature Granulocyte # (Auto) 0.02 0.00-0.02 K/uL Sodium Level 146 136-145 mmol/L Potassium Level 3.9 3.5-5.1 mmol/L Chloride Level 109 98-107 mmol/L Carbon Dioxide Level 31 21-32 mmol/L Anion Gap 6.0 3-11 mmol/L Blood Urea Nitrogen 11 7-18 mg/dl Creatinine 1.00 0.60-1.40 mg/dl Est Creatinine Clear Calc Drug Dose 95.8 ml/min Estimated GFR () 88.0 Estimated GFR (Non- 75.9 BUN/Creatinine Ratio 11.5 10-20 Random Glucose 92 70-99 mg/dl Calcium Level 8.1 8.5-10.1 mg/dl Bedside Glucose 106 70-99 mg/dl Imp: Post PEVAR for ruptured AAA Plan: Doing well. Will do a voiding trial on Thursday and planned discharge then.
--- NOTE | 2017-01-24 13:07 | Pharmacy Progress Note ---
Glycemic: Assessment & Plan Date of Service Jan 24, 2017. Assessment & Plan The patient is currently receiving: * Basal insulin: Lantus -- units every -- hours * Correctional Insulin: Novolog Correction per scale ACHS Goal Range: Low 140 mg/dL - High 180 mg/dL Correction Factor: 20 mg/dL/unit * Prandial insulin: Per carb ratio of 1 unit per -- grams CHO consumed BSGs have ranged 106-151 over the last 24 hours. No SQ insulin has been administered in 48 hours. A1c is within the normal range. Will reduce AccuChek frequency to BID today and if no hyperglycemia observed today will d/c insulin orders and Accucheks tomorrow. * Please note that the plan above was derived based on current level of insulin resistance and hospital stress. These recommendations are appropriate for inpatient admission only. Plan of care upon discharge will need to be reassessed to avoid potential outpatient hypo/hyperglycemia.
[2017-01-24] MEDS: ENOXAPARIN 40 MG/0.4 ML SYR SQ SCH ×2 (13:28→20:38)
[2017-01-24] MEDS: POTASSIUM CHLORIDE 20 MEQ TABCR PO SCH (13:56)
[2017-01-24] MEDS: OXYCODONE/ACETAMINOPHEN 5-325 TAB PO PRN (16:46)
[2017-01-24] MEDS: SIMVASTATIN 20 MG TAB PO SCH (20:37)
[2017-01-24] MEDS ORDERED: INSULIN ASPART 100 UNITS/ML 3 ML PEN SC SCH (21:00)
--- NOTE | 2017-01-24 21:17 | Progress Note ---
Post ICU Progress Note Date & Time Jan 24, 2017 at 21:17 Vital Signs Vital Signs Past 12 Hours Date Time Temp Pulse Resp B/P (MAP) Pulse Ox O2 Delivery O2 Flow Rate FiO2 01/24/17 19:47 36.8 64 20 174/80 (111) 96 Nasal Cannula 2.0 01/24/17 15:25 37.0 60 20 146/81 (102) 96 Nasal Cannula 2.0 01/24/17 15:18 Nasal Cannula 2.0 01/24/17 12:26 36.8 50 18 94/47 (63) 92 Nasal Cannula 01/24/17 12:15 Nasal Cannula 2.0 Notes Mental Status: alert / awake, participated in evaluation Nausea / Vomiting: adequately controlled Pain: adequately controlled Airway Patency, RR, SpO2: stable & adequate BP & HR: stable & adequate (SBP of 174 noted, due for evening Coreg dose) Jamar Chung is a 71-year-old male who presented to the emergency room 01/21/17 after a syncopal episode. Patient's past medical history was significant for a known AAA, hypertension, diabetes, coronary artery disease, CHF, rheumatoid arthritis on Methotrexate. Patient initially had improvement of symptoms after fluid resuscitation and treatment of back pain. However, an hour later he became hypotensive, his back pain increased, and a repeat CT abdomen demonstrated rupture of the AAA. He was taken to the OR emergently for PEVAR for his Ruptured AAA by Dr. Fernandez, on a Nicardipine drip and a Right Subclavian & R Radial Arterial line was placed. Pt was then admitted to the ICU still intubated for close observation and treatment of blood pressure on Nitro drip. He was successfully extubated the following AM, 01/22/17. Pt received 4u of PRBCs over the course of his 2 day stay in the ICU. Central line was discontinued after complaint of KCl burning on 01/23/17, as was R Radial Arterial line, and was transferred to telemetry. Upon my examination today, pt is resting in bed comfortably after his and son just departed. He is in very good spirits, stating he knows he is very douglas to have survived this incident. He has no acute complaints. His physical exam is benign. Pt believes that there are discussions of discharge on Thursday AM if all continues to go well. He remains hemodynamically stable. Consider outpatient follow up in 1 to 2 weeks with: Qian Talley; [facility] Repeat imaging needed: Per Dr. Fernandez Follow up cultures: N/A Reviewed progress notes, labs, and inpatient medication list Continue current management Additional recommendations: None at this time Pt is stable, Critical Care will sign off at this time. Thank you for including us in the care of this patient; feel free to reconsult as needed Consults & Procedures Consultants: Dr Fernandez, Vascular Surg Procedures: PEVAR for Ruptured AAA, 01/21/17 Intubated in OR 01/21; Extubated in ICU 01/22 R. Subclavian Line in 01/21, Removed 01/23 R. Radial Arterial Line in 01/21, Removed 01/23
[2017-01-25] VITALS (7 sets, daily range): BP systolic 120–184; BP diastolic 66–89; PULSE 58–69; TEMP 36.7–36.9; O2SAT 94–96
[2017-01-25] MEDS: OXYCODONE/ACETAMINOPHEN 5-325 TAB PO PRN ×3 (02:15→16:47)
[2017-01-25] MEDS: LEVOTHYROXINE 100 MCG TAB PO SCH (05:29)
[2017-01-25 07:28] LABS: BUN/CREATININE RATIO 13.3 (10-20); CALCIUM 7.8 mg/dl (8.5-10.1); POTASSIUM 3.7 mmol/L (3.5-5.1)
[2017-01-25] MEDS: ASPIRIN 81 MG ECTAB PO SCH (07:59)
[2017-01-25] MEDS: CLOPIDOGREL BISULFATE 75 MG TAB PO SCH (07:59)
[2017-01-25] MEDS: DOCUSATE SODIUM 100 MG CAP PO SCH (07:59)
[2017-01-25] MEDS: CARVEDILOL 25 MG TAB PO SCH ×2 (08:00→21:21)
[2017-01-25] MEDS: CITALOPRAM 40 MG TAB PO SCH (08:00)
[2017-01-25] MEDS: POTASSIUM CHLORIDE 20 MEQ TABCR PO SCH (08:01)
[2017-01-25] MEDS: HYDROXYCHLOROQUINE SULFATE 200 MG TAB PO SCH (08:02)
[2017-01-25] MEDS: FUROSEMIDE 40 MG TAB PO SCH ×2 (08:02→16:48)
[2017-01-25] MEDS: MULTIVITAMIN TAB PO SCH (08:02)
[2017-01-25] MEDS: PANTOprazole SOD 40 MG TAB PO SCH (08:02)
[2017-01-25] MEDS: ENOXAPARIN 40 MG/0.4 ML SYR SQ SCH ×2 (08:03→21:21)
[2017-01-25] MEDS: LISINOPRIL 40 MG TAB PO SCH (08:03)
[2017-01-25] MEDS: BISACODYL 5 MG TABEC PO SCH (08:06)
[2017-01-25] MEDS ORDERED: BISACODYL 10 MG SUPP PR STA (09:04)
--- NOTE | 2017-01-25 09:08 | Progress Note ---
Progress Note Date of Service: Jan 25, 2017. Subjective Feel slightly nauseous today. No BM since surgery. Problem List Medical Problems: (1) Altered mental status Status: Acute (2) Hypertension Status: Acute (3) Hypotension Status: Acute (4) Incarcerated umbilical hernia Status: Acute (5) Ruptured abdominal aortic aneurysm (AAA) Status: Acute (6) Small bowel obstruction Status: Acute (7) Syncope Status: Acute (8) Weakness on right side of face Status: Acute Objective Vital Signs Vital Signs Past 12 Hours Date Time Temp Pulse Resp B/P (MAP) Pulse Ox O2 Delivery O2 Flow Rate FiO2 01/25/17 07:45 36.8 64 20 184/89 (120) 94 Nasal Cannula 2.0 01/25/17 04:00 96 Nasal Cannula 2.0 01/25/17 03:41 36.8 69 20 152/74 (100) 95 Nasal Cannula 2.0 01/24/17 23:59 96 Nasal Cannula 2.0 01/24/17 23:48 37.1 70 20 155/69 (97) 95 Nasal Cannula 2.0 Exam VSS Afebrile Puncture sites ok. Good distal perfusions of the lower extremities Abd without tenderness. Laboratory and Microbiology Results Past 24 Hours Test 01/24/17 11:32 01/24/17 16:31 01/24/17 20:24 01/25/17 06:22 Range/Units Bedside Glucose 106 122 99 94 70-99 mg/dl Test 01/25/17 06:46 Range/Units Sodium Level 144 136-145 mmol/L Potassium Level 3.7 3.5-5.1 mmol/L Chloride Level 106 98-107 mmol/L Carbon Dioxide Level 29 21-32 mmol/L Anion Gap 9.0 3-11 mmol/L Blood Urea Nitrogen 13 7-18 mg/dl Creatinine 1.00 0.60-1.40 mg/dl Est Creatinine Clear Calc Drug Dose 97.7 ml/min Estimated GFR () 88.0 Estimated GFR (Non- 75.9 BUN/Creatinine Ratio 13.3 10-20 Random Glucose 85 70-99 mg/dl Calcium Level 7.8 8.5-10.1 mg/dl Imp: Post PEVAR for ruptured aneurysm. Constipation Plan: Patient doing well Will do a voiding trial tomorrow Give Dulcolax supp today. Continue PT
[2017-01-25] MEDS ORDERED: BISACODYL 10 MG SUPP PR PRN (09:15)
--- NOTE | 2017-01-25 14:22 | Pharmacy Progress Note ---
Pharmacy Glycemic Sign Off Nt Date of Service Jan 25, 2017. Assessment & Plan ASSESSMENT: * Pharmacy was consulted by Devika VALLADARES on 01/21/17 for glycemic control and to write orders per [facility] ED inpatient glycemic control protocol. * Patient has been receiving/requiring 0 units of insulin per day for adequate glycemic control over the last 3 days * BSGs ranging 94-106 mg/dl over the last 24 hrs * Do not anticipate further changes in patient status that would quickly deteriorate glycemic control (i.e. patient to be NPO for upcoming procedure, steroids tapering, starting tube feedings, etc). * This patient's recent A1c is not consistent with a dx of DM; fasting BSGs on PRP also not consistent with dx of DM * Pharmacy is signing off of glycemic consult and will no longer be making adjustments to inpatient regimen. Please feel free to re-consult if needed. Thank you.
[2017-01-25] MEDS: MoRPHine SULFATE 4 MG/ML 1 ML CARP\\VIAL IV PRN (19:27)
[2017-01-25] MEDS: SIMVASTATIN 20 MG TAB PO SCH (21:21)
[2017-01-26 03:48] VITALS: BP 143/68; PULSE 68; TEMP 36.7; O2SAT 95
[2017-01-26] MEDS: LEVOTHYROXINE 100 MCG TAB PO SCH (05:27)
[2017-01-26] MEDS: OXYCODONE/ACETAMINOPHEN 5-325 TAB PO PRN ×2 (05:30→17:02)
[2017-01-26 07:07] LABS: BASO % 0.6 %; BASO ABS # 0.04 K/uL (0-0.2); COMPLETE YES; EOS % 6.6 %; HEMATOCRIT 33.8 % (42-52); IG% 0.2 %; LYMPH % 6.2 %; LYMPH ABS # 0.39 K/uL (1.2-3.4); MEAN CELL VOLUME 93.1 fL (80-100); MEAN CORPUSCULAR HEMOGLOBIN 28.7 pg (25-34); MEAN CORPUSCULAR HGB CONC 30.8 g/dl (32-36); MEAN PLATELET VOLUME 9.6 fL (7.4-10.4); MONO % 13.9 %; NEUT % 72.5 %; PLATELET COUNT 142 K/uL (130-400); RED BLOOD COUNT 3.63 M/uL (4.7-6.1); WHITE BLOOD COUNT 6.32 K/uL (4.8-10.8)
[2017-01-26 07:39] LABS: BUN/CREATININE RATIO 13.4 (10-20); CALCIUM 8.2 mg/dl (8.5-10.1); CREATININE 0.95 mg/dl (0.60-1.40); POTASSIUM 3.2 mmol/L (3.5-5.1)
[2017-01-26] MEDS: MULTIVITAMIN TAB PO SCH (07:39)
[2017-01-26] MEDS: CARVEDILOL 25 MG TAB PO SCH ×2 (07:39→21:04)
[2017-01-26] MEDS: CLOPIDOGREL BISULFATE 75 MG TAB PO SCH (07:39)
[2017-01-26] MEDS: DOCUSATE SODIUM 100 MG CAP PO SCH (07:39)
[2017-01-26] MEDS: ASPIRIN 81 MG ECTAB PO SCH (07:39)
[2017-01-26] MEDS: PANTOprazole SOD 40 MG TAB PO SCH (07:40)
[2017-01-26] MEDS: POTASSIUM CHLORIDE 20 MEQ TABCR PO SCH (07:40)
[2017-01-26] MEDS: CITALOPRAM 40 MG TAB PO SCH (07:40)
[2017-01-26] MEDS: LISINOPRIL 40 MG TAB PO SCH (07:40)
[2017-01-26] MEDS: FUROSEMIDE 40 MG TAB PO SCH ×2 (07:40→17:01)
[2017-01-26] MEDS: HYDROXYCHLOROQUINE SULFATE 200 MG TAB PO SCH (07:40)
[2017-01-26] MEDS: ENOXAPARIN 40 MG/0.4 ML SYR SQ SCH ×2 (07:41→21:05)
[2017-01-26 07:49] VITALS: BP 159/77; PULSE 61; TEMP 36.6; O2SAT 96
[2017-01-26] MEDS: BISACODYL 5 MG TABEC PO SCH (09:05)
[2017-01-26] MEDS ORDERED: OXYC-57 PO (09:36)
--- NOTE | 2017-01-26 09:42 | Discharge Instructions ---
Discharge Instructions Date of Service Jan 26, 2017. Admission Reason for Admission: Ruptured Abdominal Aortic Aneurysm Discharge Discharge Diagnosis / Problem: Percutaneous Abdominal Aortic Aneurysm Repair d/ t ruptured AAA Discharge Goals Goal(s): Therapeutic intervention Activity Recommendations Activity Limitations: per Instructions/Follow-up section . Instructions / Follow-Up Instructions / Follow-Up SPECIAL CARE INSTRUCTIONS: Medications: * Continue to take your medications as directed. Incision/Puncture Site Care: * You will have an incision or puncture in each of your groins. Liquid glue will be used to seal your incisions/puncture site. This will lift off as the incisions/ puncture sites heal. * If Liquid glue is not used, there will be small dressings covering your incisions. After you get home, you may remove the dressings and shower - allowing the warm soapy water to run over it. * Be sure to dry the sites well and keep them dry. * DO NOT SOAK IN A TUB/POOL/etc. UNTIL ALL SURGICAL SITES ARE HEALED. DO NOT REMOVE THE GLUE UNTIL THE INCISIONS HEAL. Restrictions: * Limit yourself to systems trainer activity for the first week. * You may walk and go up and down steps. * Avoid excessive bending or movement at the level of the incisions or punctures. Risks and Possible Complications: * Infection/Drainage/Bleeding - Drainage or bleeding from the incisions/ puncture site should be minimal. If you have excessive bleeding or drainage, call our office ([phone]) right away. * Pain/Numbness - You may experience some mild pain or soreness at your incision sites. You may also have some numbness around the incisions or into the insides of your thighs. Bruising is normal and should resolve within 2 weeks. * Changes in Appetite or Bowel Habits - Mostly related to anesthesia and pain medication, some patients have reported decreased appetite and/or problems with constipation. These symptoms usually improve over a few weeks. Remembering to take an [id number] stool softener, as directed, will help you to avoid constipation. Call our office and seek emergent treatment if you develop: * Fever or chills * Have a temperature greater than 101 degrees F * Any redness or purulent drainage from your incisions or punctures * Severe abdominal, chest or back pain SKIN IRRITATION: * You may experience some redness and/or swelling in the area where radiation was administered. If any skin irritation occurs, please contact your family physician. You will be receiving a call from the Vascular Surgery Nurse after you are discharged. FOLLOW UP VISIT: It is important for you to keep your follow up appointments with your medical provider. Keep any scheduled doctor appointments. Current Hospital Diet Patient's current hospital diet: Full Liquid Diet Discharge Diet Recommended Diet: AHA Diet (Heart Healthy), Diabetes Type 2 Diet Procedures Procedures Performed: Ruptured Percutaneous Abdominal Aortic Aneurysm Repair, Bilateral cannulation of aorta, Mechanical closure bilateral femoral artery coude urethral catheter insertion Pending Studies Studies pending at discharge: no Laboratory Results Hemoglobin A1c Test 01/23/17 05:45 Range/Units Estimated Average Glucose 111 mg/dl Hemoglobin A1c 5.5 4.5-5.6 % Medical Emergencies . Who to Call and When: Medical Emergencies: If at any time you feel your situation is an emergency, please call 911 immediately. . Non-Emergent Contact Non-Emergency issues call your: Primary Care Provider . "Provider Documentation" section prepared by Jihan Norris. . VTE Core Measure Inpt VTE Proph given/why not?: Enoxaparin (Lovenox)[facility] Drug Monitoring Program Search Results: patient reviewed within database, no issues identified
--- NOTE | 2017-01-26 09:51 | Progress Note ---
Progress Note Date of Service: Jan 26, 2017. Subjective 71 yo m with multiple medical problems, POD # 5 after PEVAR d/t ruptured AAA, seen in f/u today. Pt admits back pain, but states overall is feeling improved. Did have BM since suppository yesterday, states nausea resolved. Labs and VSS stable. Pulse ox on admission was 90% on room air. Denies any other new complaints. Per RN, only voided small amt since removal of munoz this AM. Problem List Medical Problems: (1) Altered mental status Status: Acute (2) Hypertension Status: Acute (3) Hypotension Status: Acute (4) Incarcerated umbilical hernia Status: Acute (5) Ruptured abdominal aortic aneurysm (AAA) Status: Acute (6) Small bowel obstruction Status: Acute (7) Syncope Status: Acute (8) Weakness on right side of face Status: Acute Objective Vital Signs Vital Signs Past 12 Hours Date Time Temp Pulse Resp B/P (MAP) Pulse Ox O2 Delivery O2 Flow Rate FiO2 01/26/17 08:00 Nasal Cannula 2.0 01/26/17 07:49 36.6 61 22 159/77 (104) 96 Nasal Cannula 2.0 01/26/17 04:00 Nasal Cannula 2.0 01/26/17 03:48 36.7 68 22 143/68 (93) 95 Nasal Cannula 2.0 01/26/17 00:00 Nasal Cannula 2.0 01/25/17 23:48 36.7 58 20 145/79 (101) 94 Nasal Cannula 2.0 Exam CONST: A&O x4, NAD, obese, chronically ill appearing male CHEST: RRR lungs decreased, but ctab ABD: soft, nontender, + bs x 4 quad. + flank/back tenderness EXT: BL groins tender, mild ecchymosis. Dry, no erythema or discharge. Feet warm and pink, brisk cap refill. Laboratory and Microbiology Results Past 24 Hours Test 01/25/17 11:13 01/25/17 16:22 01/25/17 20:12 01/26/17 06:30 Range/Units Bedside Glucose 118 105 102 70-99 mg/dl White Blood Count 6.32 4.8-10.8 K/uL Red Blood Count 3.63 4.7-6.1 M/uL Hemoglobin 10.4 14.0-18.0 g/dL Hematocrit 33.8 42-52 % Mean Corpuscular Volume 93.1 80-100 fL Mean Corpuscular Hemoglobin 28.7 25-34 pg Mean Corpuscular Hemoglobin Concent 30.8 32-36 g/dl Platelet Count 142 130-400 K/uL Mean Platelet Volume 9.6 7.4-10.4 fL Neutrophils (%) (Auto) 72.5 % Lymphocytes (%) (Auto) 6.2 % Monocytes (%) (Auto) 13.9 % Eosinophils (%) (Auto) 6.6 % Basophils (%) (Auto) 0.6 % Neutrophils # (Auto) 4.58 1.4-6.5 K/uL Lymphocytes # (Auto) 0.39 1.2-3.4 K/uL Monocytes # (Auto) 0.88 0.11-0.59 K/uL Eosinophils # (Auto) 0.42 0-0.5 K/uL Basophils # (Auto) 0.04 0-0.2 K/uL RDW Standard Deviation 53.1 36.4-46.3 fL RDW Coefficient of Variation 15.7 11.5-14.5 % Immature Granulocyte % (Auto) 0.2 % Immature Granulocyte # (Auto) 0.01 0.00-0.02 K/uL Sodium Level 143 136-145 mmol/L Potassium Level 3.2 3.5-5.1 mmol/L Chloride Level 103 98-107 mmol/L Carbon Dioxide Level 35 21-32 mmol/L Anion Gap 5.0 3-11 mmol/L Blood Urea Nitrogen 13 7-18 mg/dl Creatinine 0.95 0.60-1.40 mg/dl Est Creatinine Clear Calc Drug Dose 102.8 ml/min Estimated GFR () 93.6 Estimated GFR (Non- 80.8 BUN/Creatinine Ratio 13.4 10-20 Random Glucose 108 70-99 mg/dl Calcium Level 8.2 8.5-10.1 mg/dl ASSESSMENT and PLAN: S/P PEVAR d/t ruptured AAA Ruptured AAA Pt doing well postop. OK for d/c home today after voiding trial.
[2017-01-26 11:47] VITALS: BP 126/70; PULSE 54; TEMP 36.6; O2SAT 94
[2017-01-26] MEDS: ONDANSETRON INJ 2 MG/ML 2 ML VIAL IV PRN ×2 (13:22→21:46)
[2017-01-26] MEDS: MoRPHine SULFATE 4 MG/ML 1 ML CARP\\VIAL IV PRN ×2 (13:25→21:47)
[2017-01-26 13:58] VITALS: BP 163/70; PULSE 58; TEMP 36.6; O2SAT 94
[2017-01-26 16:13] VITALS: BP 172/97; PULSE 67; TEMP 37.2; O2SAT 93
[2017-01-26 20:05] VITALS: BP 147/82; PULSE 59; TEMP 37; O2SAT 95
[2017-01-26] MEDS: SIMVASTATIN 20 MG TAB PO SCH (21:04)
[2017-01-27] VITALS (15 sets, daily range): BP systolic 115–141; BP diastolic 45–82; PULSE 46–67; TEMP 36.4–37; O2SAT 83–98
[2017-01-27] MEDS: LEVOTHYROXINE 100 MCG TAB PO SCH (05:51)
[2017-01-27 06:42] LABS: MEAN CELL VOLUME 96.2 fL (80-100); MEAN CORPUSCULAR HEMOGLOBIN 28.6 pg (25-34); MEAN CORPUSCULAR HGB CONC 29.7 g/dl (32-36); MEAN PLATELET VOLUME 9.6 fL (7.4-10.4); PLATELET COUNT 161 K/uL (130-400); RED BLOOD COUNT 3.64 M/uL (4.7-6.1); WHITE BLOOD COUNT 6.11 K/uL (4.8-10.8)
[2017-01-27] MEDS: OXYCODONE/ACETAMINOPHEN 5-325 TAB PO PRN ×2 (06:45→20:19)
[2017-01-27 07:14] LABS: CALCIUM 8.2 mg/dl (8.5-10.1); CREATININE 1.1 mg/dl (0.60-1.40); POTASSIUM 3.5 mmol/L (3.5-5.1)
[2017-01-27] MEDS: DOCUSATE SODIUM 100 MG CAP PO SCH (07:38)
[2017-01-27] MEDS: ENOXAPARIN 40 MG/0.4 ML SYR SQ SCH ×2 (07:38→20:19)
[2017-01-27] MEDS: ASPIRIN 81 MG ECTAB PO SCH (07:38)
[2017-01-27] MEDS: CITALOPRAM 40 MG TAB PO SCH (07:38)
[2017-01-27] MEDS: HYDROXYCHLOROQUINE SULFATE 200 MG TAB PO SCH (07:38)
[2017-01-27] MEDS: PANTOprazole SOD 40 MG TAB PO SCH (07:38)
[2017-01-27] MEDS: MULTIVITAMIN TAB PO SCH (07:39)
[2017-01-27] MEDS: LISINOPRIL 40 MG TAB PO SCH (07:39)
[2017-01-27] MEDS: CLOPIDOGREL BISULFATE 75 MG TAB PO SCH (07:39)
[2017-01-27] MEDS: FUROSEMIDE 40 MG TAB PO SCH ×2 (07:39→17:49)
[2017-01-27] MEDS: POTASSIUM CHLORIDE 20 MEQ TABCR PO SCH (07:39)
[2017-01-27] MEDS: CARVEDILOL 25 MG TAB PO SCH ×2 (07:39→20:10)
[2017-01-27] MEDS: BISACODYL 5 MG TABEC PO SCH (07:40)
--- NOTE | 2017-01-27 10:07 | DIAGNOSTIC IMAGING REPORT ---
CHEST 2 VIEWS ROUTINE HISTORY: Short of breath. Congestive heart failure. COMPARISON: Chest 01/22/2017. FINDINGS: Endotracheal tube has been removed. Mild pulmonary edema has essentially resolved. No pneumothorax. Trace bilateral pleural effusions. Bibasilar patchy densities. Mild cardiomegaly has improved. IMPRESSION: 1. The pulmonary edema and cardiomegaly have improved/resolved. 2. Trace bilateral pleural effusions. 3. Patchy bibasilar densities. This may represent atelectasis. Electronically signed by: Wesley Alberto M.D. 01/27/2017 10:06 AM Dictated Date/Time: 01/27/2017 10:05 AM
--- NOTE | 2017-01-27 15:06 | Progress Note ---
Progress Note Date of Service: Jan 27, 2017. Subjective 71 yo m with multiple medical problems, POD #7 after PEVAR d/t ruptured AAA, seen in f/u today. Pt admits fatigue and states his back pain is controlled with medications. Taking PO well. Ambulating with walker for PT. Hypoxic off O2 to 83%. Not on O2 at home and admission O2 91%. Problem List Medical Problems: (1) Altered mental status Status: Acute (2) Hypertension Status: Acute (3) Hypotension Status: Acute (4) Incarcerated umbilical hernia Status: Acute (5) Ruptured abdominal aortic aneurysm (AAA) Status: Acute (6) Small bowel obstruction Status: Acute (7) Syncope Status: Acute (8) Weakness on right side of face Status: Acute Objective Vital Signs Vital Signs Past 12 Hours Date Time Temp Pulse Resp B/P (MAP) Pulse Ox O2 Delivery O2 Flow Rate FiO2 01/27/17 13:29 51 86 01/27/17 12:00 37.0 65 21 122/45 (70) 92 Nasal Cannula 5.0 01/27/17 12:00 Nasal Cannula 5.0 01/27/17 11:25 83 Room Air 01/27/17 11:25 93 Nasal Cannula 5.0 01/27/17 08:00 Nasal Cannula 4.0 01/27/17 07:50 36.9 55 22 115/53 (73) 90 Nasal Cannula 4.0 01/27/17 04:17 132/82 (99) 01/27/17 04:00 Nasal Cannula 2.0 Exam CONST: A&O x3, NAD, Obese, chronically ill appearing male CHEST: RRR lungs decreased, but ctab ABD: soft, distended d/t body habitus, + bs x 4 quad EXT: VYAS, + doppler distal pulses Intake & Output 8-Hour Column 01/27/17 01/28/17 01/28/17 16:00 00:00 08:00 Intake Total 140 ml Balance 140 ml 24-Hour Column 01/28/17 08:00 Intake Total 140 ml Balance 140 ml Laboratory and Microbiology Results Past 24 Hours Test 01/26/17 16:50 01/26/17 20:40 01/27/17 06:00 Range/Units Bedside Glucose 112 140 70-99 mg/dl White Blood Count 6.11 4.8-10.8 K/uL Red Blood Count 3.64 4.7-6.1 M/uL Hemoglobin 10.4 14.0-18.0 g/dL Hematocrit 35.0 42-52 % Mean Corpuscular Volume 96.2 80-100 fL Mean Corpuscular Hemoglobin 28.6 25-34 pg Mean Corpuscular Hemoglobin Concent 29.7 32-36 g/dl RDW Standard Deviation 55.0 36.4-46.3 fL RDW Coefficient of Variation 15.7 11.5-14.5 % Platelet Count 161 130-400 K/uL Mean Platelet Volume 9.6 7.4-10.4 fL Sodium Level 145 136-145 mmol/L Potassium Level 3.5 3.5-5.1 mmol/L Chloride Level 101 98-107 mmol/L Carbon Dioxide Level 40 21-32 mmol/L Anion Gap 4.0 3-11 mmol/L Blood Urea Nitrogen 15 7-18 mg/dl Creatinine 1.10 0.60-1.40 mg/dl Est Creatinine Clear Calc Drug Dose 86.0 ml/min Estimated GFR () 78.4 Estimated GFR (Non- 67.7 BUN/Creatinine Ratio 14.0 10-20 Random Glucose 101 70-99 mg/dl Calcium Level 8.2 8.5-10.1 mg/dl ASSESSMENT and PLAN: s/p PEVAR Ruptured AAA Hypoxia, possible sleep apnea Pt discussed with Dr Fernandez. Chest x-ray appears improved. Recommends pt be eval by pulmonary. Pt taking PO well, voiding without problems. Daughter /family concerned regarding taking pt home immediately d/t lethargy and generalized weakness. Discussed with SS, they will attempt rehab placement. Possible d/c in next 1-2 days depending on pulmonary eval and rehab placement.
[2017-01-27] MEDS ORDERED: ALBUTEROL 0.083% NEBU SOLN 3 ML VIAL INH PRN (18:30)
[2017-01-27] MEDS ORDERED: METHYLPREDNISOLONE IV 40 MG in SYRINGE 0 ML IV ONE (18:45)
[2017-01-27] MEDS: CEFTRIAXONE SOD INJ 1 GM in DEXTROSE 5% ADD-VANTAGE 50ML 50 ML IV SCH (19:12)
[2017-01-27] MEDS: ALBUT/IPRATROP 3MG/0.5MG NEB 3 ML VIAL INH SCH ×2 (19:23→23:03)
[2017-01-27 19:35] LABS: ALLEN TEST POS (POS); ARTERIAL BLD GAS O2 SATURATION 92.5 % (90-95); ARTERIAL BLOOD GAS BASE EXCESS 10.8 mEq/L (-9-1.8); ARTERIAL BLOOD GAS HCO3 39 mmol/L (19-24); ARTERIAL BLOOD GAS PO2 68 mm/Hg (80-95); ARTERIAL BLOOD GAS pH 7.34 (7.35-7.45); O2 ADMINISTRATION 5 L
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
[2017-01-27] MEDS: SIMVASTATIN 20 MG TAB PO SCH (20:10)
[2017-01-27] MEDS: METHYLPREDNISOLONE IV 20 MG in SYRINGE 0 ML IV SCH (22:11)
[2017-01-28] VITALS (16 sets, daily range): BP systolic 148–204; BP diastolic 70–104; PULSE 51–68; TEMP 36.4–37.1; O2SAT 91–99
[2017-01-28] MEDS: ALBUT/IPRATROP 3MG/0.5MG NEB 3 ML VIAL INH SCH ×6 (03:57→23:01)
[2017-01-28] MEDS: OXYCODONE/ACETAMINOPHEN 5-325 TAB PO PRN ×2 (05:54→15:23)
[2017-01-28] MEDS: LEVOTHYROXINE 100 MCG TAB PO SCH (05:55)
[2017-01-28] MEDS: METHYLPREDNISOLONE IV 20 MG in SYRINGE 0 ML IV SCH ×2 (05:55→18:37)
[2017-01-28] MEDS: CITALOPRAM 40 MG TAB PO SCH (07:45)
[2017-01-28] MEDS: DOCUSATE SODIUM 100 MG CAP PO SCH (07:45)
[2017-01-28] MEDS: FUROSEMIDE 40 MG TAB PO SCH ×2 (07:45→18:37)
[2017-01-28] MEDS: ASPIRIN 81 MG ECTAB PO SCH (07:45)
[2017-01-28] MEDS: CLOPIDOGREL BISULFATE 75 MG TAB PO SCH (07:45)
[2017-01-28] MEDS: LISINOPRIL 40 MG TAB PO SCH (07:46)
[2017-01-28] MEDS: HYDROXYCHLOROQUINE SULFATE 200 MG TAB PO SCH (07:46)
[2017-01-28] MEDS: PANTOprazole SOD 40 MG TAB PO SCH (07:46)
[2017-01-28] MEDS: POTASSIUM CHLORIDE 20 MEQ TABCR PO SCH (07:46)
[2017-01-28] MEDS: MULTIVITAMIN TAB PO SCH (07:46)
[2017-01-28] MEDS: ENOXAPARIN 40 MG/0.4 ML SYR SQ SCH ×2 (07:47→20:21)
[2017-01-28] MEDS: BISACODYL 5 MG TABEC PO SCH (07:47)
[2017-01-28] MEDS: CARVEDILOL 25 MG TAB PO SCH ×2 (07:47→20:19)
[2017-01-28 08:59] LABS: ARTERIAL BLD GAS O2 SATURATION 90.1 % (90-95); ARTERIAL BLOOD GAS BASE EXCESS 11.1 mEq/L (-9-1.8); ARTERIAL BLOOD GAS HCO3 38 mmol/L (19-24); ARTERIAL BLOOD GAS PO2 59 mm/Hg (80-95); ARTERIAL BLOOD GAS pH 7.41 (7.35-7.45)
[2017-01-28 09:01] LABS: ALLEN TEST POS (POS); O2 ADMINISTRATION 3 L
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
--- NOTE | 2017-01-28 14:10 | Progress Note ---
Progress Note Date of Service: Jan 28, 2017. Subjective 71 yo m with multiple medical problems, POD #7 after PEVAR d/t ruptured AAA, seen in f/u today. Pt states feeling improved. Not as lethargic nor as SOB as yesterday. Admits back pain, unchanged. Denies any other new complaints. PO intake improved. Problem List Medical Problems: (1) Altered mental status Status: Acute (2) Hypertension Status: Acute (3) Hypotension Status: Acute (4) Incarcerated umbilical hernia Status: Acute (5) Ruptured abdominal aortic aneurysm (AAA) Status: Acute (6) Small bowel obstruction Status: Acute (7) Syncope Status: Acute (8) Weakness on right side of face Status: Acute Objective Vital Signs Vital Signs Past 12 Hours Date Time Temp Pulse Resp B/P (MAP) Pulse Ox O2 Delivery O2 Flow Rate FiO2 01/28/17 12:00 Nasal Cannula 3.0 01/28/17 11:31 36.9 51 19 148/70 (96) 96 Nasal Cannula 3.0 01/28/17 11:22 52 16 96 Nasal Cannula 3.0 01/28/17 08:00 Nasal Cannula 3.0 01/28/17 07:05 68 16 99 Nasal Cannula 5.0 01/28/17 07:01 36.5 51 20 166/77 (106) 99 Nasal Cannula 5.0 01/28/17 04:14 36.4 56 20 166/87 (113) 99 BiPAP 01/28/17 04:00 95 Nasal Cannula 5.0 01/28/17 03:56 56 91 30 01/28/17 03:55 56 14 91 BiPAP/CPAP 30 Exam CONST: A&O x3, NAD, obese, chronically ill appearing male CHEST: RRR, lungs decreased, but clear ABD: soft, + tenderness over ecchymotic areas and around flank. + bs x 4 quad EXT: VYAS, LLE old surgical scars. + doppler distal pulses. Groin punctures C/D/ I Intake & Output 8-Hour Column 01/28/17 01/29/17 01/29/17 16:00 00:00 08:00 Intake Total 480 ml Output Total 475 ml Balance 5 ml 24-Hour Column 01/29/17 08:00 Intake Total 480 ml Output Total 475 ml Balance 5 ml Laboratory and Microbiology Results Past 24 Hours Test 01/27/17 18:53 01/27/17 20:11 01/28/17 06:12 01/28/17 08:46 Range/Units Arterial Blood pH 7.34 7.41 7.35-7.45 Arterial Blood Partial Pressure CO2 73 60 35-46 mmHg Arterial Blood Partial Pressure O2 68 59 80-95 mm/Hg Arterial Blood HCO3 39 38 19-24 mmol/L Arterial Blood Oxygen Saturation 92.5 90.1 90-95 % Arterial Blood Base Excess 10.8 11.1 -9-1.8 mEq/L Arterial Blood Gas Delivery 5 L 3 L Peter Test POS POS POS Bedside Glucose 125 147 70-99 mg/dl Microbiology Results 01/27/17 Gram Stain - Final, Resulted 01/27/17 Sputum Culture - Preliminary, Resulted HEAVY NORMAL HAO Present, Final Rep... ASSESSMENT and PLAN: s/p PEVAR Ruptured AAA Hypoxia Pt respiratory status improved significantly today. Appreciate pulmonary recs. Increase activity as tolerated. Pt has been accepted at [facility], possible discharge in next 1-2 days once respiratory status optimized.
[2017-01-28] MEDS: CEFTRIAXONE SOD INJ 1 GM in DEXTROSE 5% ADD-VANTAGE 50ML 50 ML IV SCH (18:36)
[2017-01-28] MEDS: SIMVASTATIN 20 MG TAB PO SCH (20:19)
[2017-01-29] VITALS (18 sets, daily range): BP systolic 112–202; BP diastolic 61–101; PULSE 50–68; TEMP 36.4–36.7; O2SAT 91–98
[2017-01-29] MEDS ORDERED: NURSING VERBAL MED ORDER ONE (01:15)
[2017-01-29] MEDS ORDERED: HydrALAZINE HCL 20 MG/ML VIAL IV. STA (01:18)
[2017-01-29] MEDS ORDERED: HydrALAZINE HCL 20 MG/ML VIAL ONE (01:20)
[2017-01-29] MEDS: OXYCODONE/ACETAMINOPHEN 5-325 TAB PO PRN (02:18)
[2017-01-29] MEDS: ALBUT/IPRATROP 3MG/0.5MG NEB 3 ML VIAL INH SCH ×6 (03:12→23:28)
[2017-01-29] MEDS ORDERED: HydrALAZINE HCL 20 MG/ML VIAL IV. ONE (04:03)
[2017-01-29] MEDS: LEVOTHYROXINE 100 MCG TAB PO SCH (05:50)
[2017-01-29] MEDS: METHYLPREDNISOLONE IV 20 MG in SYRINGE 0 ML IV SCH ×2 (05:50→17:22)
[2017-01-29 06:00] LABS: BASO % 0.3 %; BASO ABS # 0.03 K/uL (0-0.2); COMPLETE YES; EOS % 0.1 %; HEMATOCRIT 33.8 % (42-52); IG% 0.6 %; LYMPH % 9.6 %; LYMPH ABS # 0.85 K/uL (1.2-3.4); MEAN CELL VOLUME 94.4 fL (80-100); MEAN CORPUSCULAR HEMOGLOBIN 29.6 pg (25-34); MEAN CORPUSCULAR HGB CONC 31.4 g/dl (32-36); MEAN PLATELET VOLUME 9.9 fL (7.4-10.4); MONO % 10.1 %; NEUT % 79.3 %; PLATELET COUNT 217 K/uL (130-400); RED BLOOD COUNT 3.58 M/uL (4.7-6.1); WHITE BLOOD COUNT 8.85 K/uL (4.8-10.8)
[2017-01-29] MEDS ORDERED: NITROGLYCERIN 2% OINTMENT 30GM TUBE EXT SCH (06:00)
[2017-01-29 06:38] LABS: CALCIUM 8.6 mg/dl (8.5-10.1); CREATININE 1.1 mg/dl (0.60-1.40); POTASSIUM 3.6 mmol/L (3.5-5.1)
--- NOTE | 2017-01-29 07:23 | DIAGNOSTIC IMAGING REPORT ---
CHEST ONE VIEW PORTABLE CLINICAL HISTORY: hypoxia COMPARISON STUDY: 01/27/2017 FINDINGS: The heart is enlarged. There is aortic tortuosity. There is no focal pulmonary consolidation. There is no overt failure.[ There are postsurgical changes of midline sternotomy. IMPRESSION: Cardiomegaly. No acute findings. Electronically signed by: Ishan Urbina M.D. 01/29/2017 7:22 AM Dictated Date/Time: 01/29/2017 7:21 AM
[2017-01-29] MEDS: CLOPIDOGREL BISULFATE 75 MG TAB PO SCH (08:06)
[2017-01-29] MEDS: ASPIRIN 81 MG ECTAB PO SCH (08:06)
[2017-01-29] MEDS: CITALOPRAM 40 MG TAB PO SCH (08:06)
[2017-01-29] MEDS: DOCUSATE SODIUM 100 MG CAP PO SCH (08:06)
[2017-01-29] MEDS: CARVEDILOL 25 MG TAB PO SCH ×2 (08:07→21:00)
[2017-01-29] MEDS: HydrALAZINE HCL 20 MG/ML VIAL IV. PRN ×3 (08:07→19:16)
[2017-01-29] MEDS: PANTOprazole SOD 40 MG TAB PO SCH (08:08)
[2017-01-29] MEDS: HYDROXYCHLOROQUINE SULFATE 200 MG TAB PO SCH (08:09)
[2017-01-29] MEDS: ENOXAPARIN 40 MG/0.4 ML SYR SQ SCH ×2 (08:09→21:06)
[2017-01-29] MEDS: MULTIVITAMIN TAB PO SCH (08:10)
[2017-01-29] MEDS: FUROSEMIDE 40 MG TAB PO SCH ×2 (08:10→17:22)
[2017-01-29] MEDS: POTASSIUM CHLORIDE 20 MEQ TABCR PO SCH (08:10)
[2017-01-29] MEDS: LISINOPRIL 40 MG TAB PO SCH (08:12)
[2017-01-29] MEDS: MoRPHine SULFATE 4 MG/ML 1 ML CARP\\VIAL IV PRN (08:14)
[2017-01-29] MEDS: BISACODYL 5 MG TABEC PO SCH (08:16)
--- NOTE | 2017-01-29 08:27 | Medical Consult ---
Consultation Date of Consultation: Jan 29, 2017. Attending Physician: Ahsan Fernandez M.D. Reason for Consultation: Hypertension History of Present Illness 71-year-old male with a past medical history of hypertension, hypothyroidism, hyponatremia, and impaired arthritis, coronary artery disease, 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 Was found to have a ruptured AAA and urgently underwent percutaneous abdominal aortic aneurysm repair with bilateral cannulation and mechanical closure of bilateral femoral artery. Medicine was consulted as he was found to have an elevated blood pressure over 200/105 . He had received 5 mg of hydralazine per Dr. Fernandez's orders which did not lower his blood pressure . At the time of my evaluation he was laying in his bed with CPAP. Denied any chest pain, palpitations, difficulty breathing, headache ,numbness or tingling Past Medical/Surgical History Medical Problems: (1) Altered mental status Status: Acute (2) Hypertension Status: Acute (3) Hypotension Status: Acute (4) Incarcerated umbilical hernia Status: Acute (5) Ruptured abdominal aortic aneurysm (AAA) Status: Acute (6) Small bowel obstruction Status: Acute (7) Syncope Status: Acute (8) Weakness on right side of face Status: Acute Family History Diabetes mellitus Social History Smoking Status: Former Smoker Drug Use: none Marital Status: Housing Status: lives with significant other Allergies Coded Allergies: Ranitidine (Verified Allergy, Unknown, UNSURE, 11/27/15) Adhesives (Verified Adverse Reaction, Unknown, TEARING OF SKIN, 11/27/15) Current Inpatient Medications Current Inpatient Medications Medications (Trade) Dose Ordered Sig/Kavya Route Start Time Stop Time Status Last Admin Dose Admin Morphine Sulfate (MoRPHine SULFATE INJ) 4 mg Q2H PRN IV 01/21/17 20:30 02/04/17 20:29 01/26/17 21:47 4 MG Ondansetron HCl (Zofran Inj) 4 mg Q6H PRN IV 01/21/17 20:30 02/20/17 20:29 01/26/17 21:46 4 MG Metoprolol Tartrate (Lopressor Iv) 5 mg Q10M PRN IV 01/21/17 20:30 02/20/17 20:29 01/23/17 05:16 5 MG Glucose (Glucose 40% Gel) 15-30 GRAMS 15 GRAMS... UD PRN PO 01/21/17 22:30 02/20/17 22:29 Glucose (Glucose Chew Tab) 4-8 Tablets 4 Tabl... UD PRN PO 01/21/17 22:30 02/20/17 22:29 Dextrose (Dextrose 50% 50ML Syringe) 25-50ML OF 50% DW IV FOR... UD PRN IV 01/21/17 22:30 02/20/17 22:29 Glucagon (Glucagon Inj) 1 mg UD PRN SQ 01/21/17 22:30 02/20/17 22:29 Simvastatin (Zocor Tab) 20 mg PM PO 01/22/17 21:00 02/21/17 20:59 01/28/17 20:19 20 MG Pantoprazole Sodium (Protonix Tab) 40 mg QAM PO 01/22/17 09:00 02/21/17 08:59 01/28/17 07:46 40 MG Clopidogrel Bisulfate (plAVix TAB) 75 mg QAM PO 01/22/17 10:30 02/21/17 10:29 01/28/17 07:45 75 MG Aspirin (Ecotrin Tab) 81 mg QAM PO 01/22/17 10:30 02/21/17 10:29 01/28/17 07:45 81 MG Prednisone (PredniSONE TAB) 5 mg DAILY PO 01/22/17 10:30 02/21/17 10:29 01/27/17 07:39 5 MG Citalopram Hydrobromide (celeXA TAB) 40 mg DAILY PO 01/22/17 10:30 02/21/17 10:29 01/28/17 07:45 40 MG Docusate Sodium (coLACE CAP) 100 mg DAILY PO 01/22/17 10:30 02/21/17 10:29 01/28/17 07:45 100 MG Folic Acid (Folvite Tab) 1 mg DAILY PO 01/22/17 10:30 02/21/17 10:29 01/28/17 07:45 1 MG Levothyroxine Sodium (Synthroid Tab) 100 mcg DAILYBB PO 01/22/17 10:30 02/21/17 10:29 01/29/17 05:50 100 MCG Multivitamins (Multivitamin Tab) 1 tab QAM PO 01/22/17 10:30 02/21/17 10:29 01/28/17 07:46 1 TAB Acetaminophen (Tylenol Tab) 1,000 mg Q8 PRN PO 01/22/17 11:45 02/21/17 11:44 01/22/17 21:36 1,000 MG Carvedilol (Coreg Tab) 25 mg BID PO 01/23/17 09:00 02/21/17 20:59 01/28/17 20:19 25 MG Bisacodyl (Dulcolax Tab) 5 mg QAM PO 01/24/17 09:00 02/23/17 08:59 01/27/17 07:40 5 MG Oxycodone/ Acetaminophen (Percocet 5-325mg Tab) 1 tab Q4H PRN PO 01/23/17 08:45 02/06/17 08:44 01/29/17 02:18 1 TAB Furosemide (Lasix Tab) 40 mg BID17 PO 01/23/17 17:00 02/22/17 16:59 01/28/17 18:37 40 MG Hydroxychloroquine Sulfate (Plaquenil Tab) 400 mg DAILY PO 01/24/17 09:00 02/23/17 08:59 01/28/17 07:46 400 MG Lisinopril (Zestril Tab) 40 mg DAILY PO 01/24/17 09:00 02/23/17 08:59 01/28/17 07:46 40 MG Nitroglycerin (Nitrostat Tab) 0.4 mg UD PRN SL 01/23/17 10:00 02/22/17 09:59 Potassium Chloride (Klor-Con Tab) 20 meq DAILY PO 01/24/17 09:00 02/23/17 08:59 01/28/17 07:46 20 MEQ Methotrexate (Methotrexate Tab) 25 mg Th@0900 PO 01/29/17 09:00 02/28/17 08:59 Enoxaparin Sodium (Lovenox Inj) 40 mg Q12 SQ 01/24/17 10:00 02/23/17 09:59 01/28/17 20:21 40 MG Bisacodyl (Dulcolax Supp) 10 mg DAILY PRN TX 01/25/17 09:15 02/24/17 09:14 Albuterol/ Ipratropium (Duoneb) 3 ml Q4R INH 01/27/17 20:00 02/26/17 19:59 01/29/17 07:08 3 ML Albuterol Sulfate (Ventolin 0.083% 2.5MG/3ML Neb) 2.5 mg Q2R PRN INH 01/27/17 18:30 02/26/17 18:29 Ceftriaxone Sodium 1 gm/ Dextrose 50 ml @ 100 mls/hr DAILY@1800 IV 01/27/17 19:00 02/03/17 18:59 01/28/17 18:36 100 MLS/HR Methylprednisolone Sodium Succinate 20 mg/Syringe 0.32 ml @ 1.5 mls/min Q12H IV 01/28/17 18:00 02/26/17 21:59 01/29/17 05:50 1.5 MLS/MIN Hydralazine HCl (HydrALAZINE INJ) 10 mg Q4H PRN IV. 01/29/17 04:15 02/28/17 04:14 Nitroglycerin (Nitroglycerin 2% Oint) 1 inch Q6H EXT 01/29/17 06:00 02/28/17 05:59 01/29/17 06:00 1 INCH Review of Systems As above Cardiovascular: No chest pain Abdomen: No pain, No nausea, No vomiting Neurologic: No paralysis, No weakness, No numbness/tingling Physical Exam Date Time Temp Pulse Resp B/P (MAP) Pulse Ox O2 Delivery O2 Flow Rate FiO2 01/29/17 07:58 36.6 68 22 202/71 (114) 91 Nasal Cannula 3.0 195/100 (131) 01/29/17 07:08 62 16 98 Nasal Cannula 3.0 01/29/17 05:00 184/78 (113) 01/29/17 04:00 178/87 (117) 01/29/17 04:00 BiPAP 30 01/29/17 03:34 36.4 53 20 201/101 (134) 94 BiPAP 30 01/29/17 03:12 50 16 95 BiPAP/CPAP 30 01/28/17 23:59 BiPAP 30 01/28/17 23:57 36.6 58 15 204/104 (137) 98 BiPAP 30 200/103 (135) 01/28/17 23:02 57 16 94 BiPAP/CPAP 30 01/28/17 21:48 57 92 30 01/28/17 20:00 Nasal Cannula 2.0 01/28/17 19:11 68 16 98 Nasal Cannula 2.0 01/28/17 19:03 37.0 58 18 166/94 (118) 96 Nasal Cannula 2.0 01/28/17 16:00 Nasal Cannula 3.0 01/28/17 15:19 37.1 60 22 191/84 (119) 99 Nasal Cannula 2.0 01/28/17 15:06 64 16 95 Nasal Cannula 2.0 01/28/17 12:00 Nasal Cannula 3.0 01/28/17 11:31 36.9 51 19 148/70 (96) 96 Nasal Cannula 3.0 01/28/17 11:22 52 16 96 Nasal Cannula 3.0 General Appearance: WD/WN ENT: hearing grossly normal Respiratory/Chest: normal breath sounds, no respiratory distress Cardiovascular: + bradycardia Abdomen/GI: normal bowel sounds, non tender, soft Laboratory Results Last 24 Hours Test 01/28/17 08:46 01/28/17 11:17 01/28/17 16:06 01/28/17 19:39 Arterial Blood pH 7.41 Arterial Blood Partial Pressure CO2 60 mmHg Arterial Blood Partial Pressure O2 59 mm/Hg Arterial Blood HCO3 38 mmol/L Arterial Blood Oxygen Saturation 90.1 % Arterial Blood Base Excess 11.1 mEq/L Arterial Blood Gas Delivery 3 L Pteer Test POS Bedside Glucose 112 mg/dl 103 mg/dl 135 mg/dl Test 01/29/17 05:14 01/29/17 07:01 White Blood Count 8.85 K/uL Red Blood Count 3.58 M/uL Hemoglobin 10.6 g/dL Hematocrit 33.8 % Mean Corpuscular Volume 94.4 fL Mean Corpuscular Hemoglobin 29.6 pg Mean Corpuscular Hemoglobin Concent 31.4 g/dl Platelet Count 217 K/uL Mean Platelet Volume 9.9 fL Neutrophils (%) (Auto) 79.3 % Lymphocytes (%) (Auto) 9.6 % Monocytes (%) (Auto) 10.1 % Eosinophils (%) (Auto) 0.1 % Basophils (%) (Auto) 0.3 % Neutrophils # (Auto) 7.02 K/uL Lymphocytes # (Auto) 0.85 K/uL Monocytes # (Auto) 0.89 K/uL Eosinophils # (Auto) 0.01 K/uL Basophils # (Auto) 0.03 K/uL RDW Standard Deviation 54.3 fL RDW Coefficient of Variation 15.9 % Immature Granulocyte % (Auto) 0.6 % Immature Granulocyte # (Auto) 0.05 K/uL Sodium Level 144 mmol/L Potassium Level 3.6 mmol/L Chloride Level 100 mmol/L Carbon Dioxide Level 40 mmol/L Anion Gap 4.0 mmol/L Blood Urea Nitrogen 24 mg/dl Creatinine 1.10 mg/dl Est Creatinine Clear Calc Drug Dose 86.0 ml/min Estimated GFR () 78.4 Estimated GFR (Non- 67.7 BUN/Creatinine Ratio 22.0 Random Glucose 107 mg/dl Calcium Level 8.6 mg/dl Bedside Glucose 103 mg/dl Assessment & Plan 71-year-old male with a past medical history of hypertension, hypothyroidism, hyponatremia, and impaired arthritis, coronary artery disease, 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 Was found to have a ruptured AAA and urgently underwent percutaneous abdominal aortic aneurysm repair with bilateral cannulation Ruptured AAA status post PEVAR - Management per primary team Hypertension: Currently on Zestril, Coreg, Lasix - Hydralazine added when necessary every 4 hours if systolic blood pressure more than 160 - Nitropaste every 6 hours if needed Acute and chronic respiratory failure - Untreated obstructive sleep apnea - Continue Solu-Medrol 20 mg every 12 hours, DuoNeb's, Ventolin, Rocephin - CPAP /BiPAP at night Coronary artery disease: Continue aspirin, Plavix, Coreg, Zestril, Zocor Hyperlipidemia: Continue Zocor Hypothyroidism: - Continue Synthroid Rheumatoid arthritis Continue methotrexate, Plaquenil, prednisone DVT prophylaxis: Lovenox Full code Disposition: In telemetry Resident Tracking Resident Involvement: Resident Care Provided Care Provided: Adult Hospital Medicine Assessment and Plan Attending Addendum: I have physically seen and examined this patient, have directed their medical care, have supervised the medical residents activities, and agree with the H&P as noted above, with the following changes: NONE
[2017-01-29] MEDS ORDERED: METHOTREXATE 2.5 MG TAB PO SCH (09:00)
--- NOTE | 2017-01-29 10:01 | PULMONARY PROGRESS NOTE ---
DATE: 01/29/2017 TIME: 09:30 a.m. SUBJECTIVE: The patient is still somewhat short of breath. He feels a little more congested today. He is coughing. Sometimes, his phlegm is a little yellow and sometimes, it is clear. He denies chest pain. He has had problems in the past several hours with elevation of blood pressure. The blood pressure has been as high as 202/71. He does carry a history of hypertension. The patient states that they did walk him yesterday. He states he did not do that well because of getting short of breath. I spoke with his registered nurse, who states that the patient did wear his BiPAP overnight. He did not complain of any respiratory issues. OBJECTIVE: GENERAL: The patient was sleeping when I came into the room. He awakened readily. He did orient. Temperature this morning is 36.6. ENT: Unchanged from prior. HEART: Rate was 68 per minute. The most recent blood pressure is 137/71. CHEST: Again shows some asymmetry between the left and the right side in the area of the sternum. This is likely related to his prior bypass surgery. The left chest rides a little higher than the right chest. His respiratory rate is 22 breaths per minute. He does have bilateral scattered rhonchi today, which are actually increased compared with yesterday. ABDOMEN: Soft. Bowel sounds were present. There was no focal tenderness. EXTREMITIES: Showed trace edema bilaterally. There was obviously no change in the scar from the left leg from skin grafting done years ago. LABORATORY DATA: Today's white blood cell count is 8.85. Hemoglobin is 10.6. Platelets are 217,000. Electrolytes today show sodium 144, potassium 3.6, chloride 100, and bicarbonate 40. BUN is 24 with a creatinine of 1.1. Blood sugar this morning was 103. The patient had a chest x-ray this morning that showed cardiomegaly with no focal pulmonary consolidation. Postsurgical midline sternotomy was noted. IMPRESSIONS: 1. Respiratory failure -- acute on chronic with hypoxia and hypercarbia -- improved. 2. Chronic obstructive pulmonary disease with exacerbation. 3. Mild atelectasis. 4. Obstructive sleep apnea -- untreated previously. 5. Status post abdominal aortic aneurysm repair by percutaneous endovascular repair. 6. Increased blood pressure. COMMENTS AND RECOMMENDATIONS: The patient seems a little more congested today. His chest x-ray, however, was clear. Because of the congestion, I am going to continue with the methylprednisolone at 20 mg IV q. 12 hours. His blood sugars have improved. I am going to continue the nebulizer treatments the same and continue the ceftriaxone. We will continue to follow the patient.
--- NOTE | 2017-01-29 10:05 | Progress Note ---
Progress Note Date of Service Jan 29, 2017. (Vivian Burnett MD) Progress Note Patient reviewed by myself and on rounds with Dr English He reports severe R sided lower back pain. His BP at the time was elevated. He received a dose of IV Morphine and then felt better, and his BP improved. O/E has pain around piriformin and SI joint. Isometric contraction performed to stretch muscle. Recommendations: Voltaren gel q6h to piriformis and SI joint Continue morphine for pain Continue other BP meds, but continue to monitor Low threshold to re-image his aorta with recent surgery (Vivian Burnett MD) Resident Physician Supervision Note: I interviewed and examined the patient. Discussed with Dr. Burnett and agree with findings and plan as documented in the note. Any exceptions or clarifications are listed here: None Documented By: Jose Manuel English back pain bad - morphine - back pain improved - BP came down some. concern on ? back pain being referred by vascular or intraabdominal pathology? --> but fortunately back pain was more SI buttock region. exam overall benign except R SI tender and R buttock, ost - R pelvic/perisacral/ SI soft tissue high tone/tender/decreased ROM - post-isometric relaxation muscle energy done x3 myself then x 3 w my supervision by dr burnett - improved. pt tolerated well uncontrolled HTN - currently appears tied to pain since morphine improved BP markedly (could expect some degree of improvement w SVR reduction from morphine , but not that much) - however, with current hx - will need to continue to follow closely back pain - fortunately far lower area of pain than what would fit w referred pain from intraabdominal or vascular source - appearing likely biomechanical predominantly from time in bed somatic dysfunction sacral/pelvic region - OMT as above - tolerated well. voltaren gel to SI joint and piriformis region (Jose Manuel English, Trixie) Resident Tracking Resident Involvement: Resident Care Provided Care Provided: Adult Hospital Medicine (Vivian Burnett MD)
[2017-01-29] MEDS: DICLOFENAC SOD 1% GEL 100 GM TUBE EXT SCH ×2 (11:41→18:00)
[2017-01-29] MEDS: NITROGLYCERIN OINT 2% 1GM PACKET EXT SCH ×2 (12:45→17:23)
--- NOTE | 2017-01-29 15:33 | Progress Note ---
Progress Note Date of Service: Jan 29, 2017. Subjective Lower back pain better, eating better today. No BM Problem List Medical Problems: (1) Altered mental status Status: Acute (2) Hypertension Status: Acute (3) Hypotension Status: Acute (4) Incarcerated umbilical hernia Status: Acute (5) Ruptured abdominal aortic aneurysm (AAA) Status: Acute (6) Small bowel obstruction Status: Acute (7) Syncope Status: Acute (8) Weakness on right side of face Status: Acute Objective Vital Signs Vital Signs Past 12 Hours Date Time Temp Pulse Resp B/P (MAP) Pulse Ox O2 Delivery O2 Flow Rate FiO2 01/29/17 12:34 64 112/66 (81) 01/29/17 12:00 Nasal Cannula 2.0 01/29/17 11:37 55 16 97 Nasal Cannula 3.0 01/29/17 11:31 36.7 57 22 190/90 (123) 98 Nasal Cannula 2.0 01/29/17 08:35 137/71 (93) 01/29/17 08:00 Nasal Cannula 2.0 01/29/17 07:58 36.6 68 22 202/71 (114) 91 Nasal Cannula 3.0 195/100 (131) 01/29/17 07:08 62 16 98 Nasal Cannula 3.0 01/29/17 05:00 184/78 (113) 01/29/17 04:00 178/87 (117) 01/29/17 04:00 BiPAP 30 01/29/17 03:34 36.4 53 20 201/101 (134) 94 BiPAP 30 Exam BP better controlled at this time Abd soft Good distal perfusion Intake & Output 8-Hour Column 01/29/17 01/30/17 01/30/17 16:00 00:00 08:00 Intake Total 240 ml Balance 240 ml 24-Hour Column 01/30/17 08:00 Intake Total 240 ml Balance 240 ml Laboratory and Microbiology Results Past 24 Hours Test 01/28/17 16:06 01/28/17 19:39 01/29/17 05:14 01/29/17 07:01 Range/Units Bedside Glucose 103 135 103 70-99 mg/dl White Blood Count 8.85 4.8-10.8 K/uL Red Blood Count 3.58 4.7-6.1 M/uL Hemoglobin 10.6 14.0-18.0 g/dL Hematocrit 33.8 42-52 % Mean Corpuscular Volume 94.4 80-100 fL Mean Corpuscular Hemoglobin 29.6 25-34 pg Mean Corpuscular Hemoglobin Concent 31.4 32-36 g/dl Platelet Count 217 130-400 K/uL Mean Platelet Volume 9.9 7.4-10.4 fL Neutrophils (%) (Auto) 79.3 % Lymphocytes (%) (Auto) 9.6 % Monocytes (%) (Auto) 10.1 % Eosinophils (%) (Auto) 0.1 % Basophils (%) (Auto) 0.3 % Neutrophils # (Auto) 7.02 1.4-6.5 K/uL Lymphocytes # (Auto) 0.85 1.2-3.4 K/uL Monocytes # (Auto) 0.89 0.11-0.59 K/uL Eosinophils # (Auto) 0.01 0-0.5 K/uL Basophils # (Auto) 0.03 0-0.2 K/uL RDW Standard Deviation 54.3 36.4-46.3 fL RDW Coefficient of Variation 15.9 11.5-14.5 % Immature Granulocyte % (Auto) 0.6 % Immature Granulocyte # (Auto) 0.05 0.00-0.02 K/uL Sodium Level 144 136-145 mmol/L Potassium Level 3.6 3.5-5.1 mmol/L Chloride Level 100 98-107 mmol/L Carbon Dioxide Level 40 21-32 mmol/L Anion Gap 4.0 3-11 mmol/L Blood Urea Nitrogen 24 7-18 mg/dl Creatinine 1.10 0.60-1.40 mg/dl Est Creatinine Clear Calc Drug Dose 86.0 ml/min Estimated GFR () 78.4 Estimated GFR (Non- 67.7 BUN/Creatinine Ratio 22.0 10-20 Random Glucose 107 70-99 mg/dl Calcium Level 8.6 8.5-10.1 mg/dl Imp: Post PEVAR for ruptured AAA Chronic hypoxia Plan: Doing well from vascular standpoint. Hospitalist and Pulmonary input appreciated. Can be d/c to [facility] when pulm and medicine agree with d/c.
[2017-01-29] MEDS: CEFTRIAXONE SOD INJ 1 GM in DEXTROSE 5% ADD-VANTAGE 50ML 50 ML IV SCH (17:21)
[2017-01-29] MEDS: SIMVASTATIN 20 MG TAB PO SCH (21:07)
[2017-01-29 22:27] LABS: URINE APPEARANCE CLEAR (CLEAR); URINE BILIRUBIN NEG (NEG); URINE COLOR YELLOW; URINE EPITHELIAL CELL AUTO 0-5 /lpf (0-5); URINE NITRITE NEG (NEG); URINE SPECIFIC GRAVITY 1.011 (1.000-1.030); UROBILINOGEN NEG (NEG)
[2017-01-29 22:29] LABS: MANUAL MICROSCOPIC REQUIRED? NO; REVIEW REQ? NO
[2017-01-30] VITALS (7 sets, daily range): BP systolic 157–166; BP diastolic 86–101; PULSE 55–68; TEMP 36.5–37.1; O2SAT 91–97
[2017-01-30] MEDS: NITROGLYCERIN OINT 2% 1GM PACKET EXT SCH ×3 (00:28→12:19)
[2017-01-30] MEDS: DICLOFENAC SOD 1% GEL 100 GM TUBE EXT SCH ×3 (00:29→12:19)
[2017-01-30] MEDS: ALBUT/IPRATROP 3MG/0.5MG NEB 3 ML VIAL INH SCH ×4 (04:00→15:24)
[2017-01-30 05:57] LABS: HEMATOCRIT 38.6 % (42-52); MEAN CORPUSCULAR HEMOGLOBIN 27.7 pg (25-34); MEAN CORPUSCULAR HGB CONC 29.8 g/dl (32-36); MEAN PLATELET VOLUME 9.9 fL (7.4-10.4); PLATELET COUNT 314 K/uL (130-400); RED BLOOD COUNT 4.15 M/uL (4.7-6.1); WHITE BLOOD COUNT 9.88 K/uL (4.8-10.8)
[2017-01-30 06:33] LABS: CREATININE 1.2 mg/dl (0.60-1.40)
[2017-01-30] MEDS: METHYLPREDNISOLONE IV 20 MG in SYRINGE 0 ML IV SCH (06:37)
[2017-01-30] MEDS: LEVOTHYROXINE 100 MCG TAB PO SCH (06:37)
[2017-01-30] MEDS: MULTIVITAMIN TAB PO SCH (07:48)
[2017-01-30] MEDS: HYDROXYCHLOROQUINE SULFATE 200 MG TAB PO SCH (07:48)
[2017-01-30] MEDS: PANTOprazole SOD 40 MG TAB PO SCH (07:48)
[2017-01-30] MEDS: ASPIRIN 81 MG ECTAB PO SCH (07:49)
[2017-01-30] MEDS: DOCUSATE SODIUM 100 MG CAP PO SCH (07:49)
[2017-01-30] MEDS: CLOPIDOGREL BISULFATE 75 MG TAB PO SCH (07:49)
[2017-01-30] MEDS: CITALOPRAM 40 MG TAB PO SCH (07:49)
[2017-01-30] MEDS: POTASSIUM CHLORIDE 20 MEQ TABCR PO SCH (07:49)
[2017-01-30] MEDS: ENOXAPARIN 40 MG/0.4 ML SYR SQ SCH (07:50)
[2017-01-30] MEDS: CARVEDILOL 25 MG TAB PO SCH (07:50)
[2017-01-30] MEDS: FUROSEMIDE 40 MG TAB PO SCH (07:50)
[2017-01-30] MEDS: LISINOPRIL 40 MG TAB PO SCH (07:51)
[2017-01-30] MEDS: BISACODYL 5 MG TABEC PO SCH (07:59)
--- NOTE | 2017-01-30 09:35 | Progress Note ---
Progress Note Date of Service: Jan 30, 2017. Subjective 71 yo m with multiple medical problems, POD #9 after PEVAR d/t ruptured AAA, seen in f/u today. Pt denies any new complaints. Ambulating with walker, BP better control, breathing improved. Problem List Medical Problems: (1) Altered mental status Status: Acute (2) Hypertension Status: Acute (3) Hypotension Status: Acute (4) Incarcerated umbilical hernia Status: Acute (5) Ruptured abdominal aortic aneurysm (AAA) Status: Acute (6) Small bowel obstruction Status: Acute (7) Syncope Status: Acute (8) Weakness on right side of face Status: Acute Objective Vital Signs Vital Signs Past 12 Hours Date Time Temp Pulse Resp B/P (MAP) Pulse Ox O2 Delivery O2 Flow Rate FiO2 01/30/17 08:18 36.9 64 23 166/101 (122) 91 Room Air 01/30/17 07:11 61 18 92 Nasal Cannula 2.0 01/30/17 04:06 36.5 62 18 157/86 (109) 94 BiPAP 01/30/17 04:02 55 22 96 BiPAP/CPAP 30 01/30/17 04:02 55 93 30 01/30/17 04:00 BiPAP 01/29/17 23:59 BiPAP 01/29/17 23:39 36.7 59 18 160/75 (103) 96 BiPAP 01/29/17 23:28 60 18 96 BiPAP/CPAP 30 01/29/17 22:16 65 93 30 Exam CONST: A&O x3, NAD, obese, chronically ill appearing male CHEST: RRR lungs decreased, but ctab ABD: soft, nontender, + bs x 4 quad EXT: Groins C/D/I, BLE +1 edema, + doppler distal pulses Laboratory and Microbiology Results Past 24 Hours Test 01/29/17 16:20 01/29/17 20:27 01/29/17 22:10 01/30/17 05:15 Range/Units Bedside Glucose 164 104 70-99 mg/dl Urine Color YELLOW Urine Appearance CLEAR CLEAR Urine pH 7.0 4.5-7.5 Urine Specific [place] 1.011 1.000-1.030 Urine Protein NEG NEG Urine Glucose (UA) NEG NEG Urine Ketones NEG NEG Urine Occult Blood 1+ NEG Urine Nitrite NEG NEG Urine Bilirubin NEG NEG Urine Urobilinogen NEG NEG Urine Leukocyte Esterase NEG NEG Urine WBC (Auto) 0 0-5 /hpf Urine RBC (Auto) 0-4 0-4 /hpf Urine Hyaline Casts (Auto) 1-5 0-5 /lpf Urine Epithelial Cells (Auto) 0-5 0-5 /lpf Urine Bacteria (Auto) NEG NEG White Blood Count 9.88 4.8-10.8 K/uL Red Blood Count 4.15 4.7-6.1 M/uL Hemoglobin 11.5 14.0-18.0 g/dL Hematocrit 38.6 42-52 % Mean Corpuscular Volume 93.0 80-100 fL Mean Corpuscular Hemoglobin 27.7 25-34 pg Mean Corpuscular Hemoglobin Concent 29.8 32-36 g/dl RDW Standard Deviation 55.5 36.4-46.3 fL RDW Coefficient of Variation 16.4 11.5-14.5 % Platelet Count 314 130-400 K/uL Mean Platelet Volume 9.9 7.4-10.4 fL Creatinine 1.20 0.60-1.40 mg/dl Est Creatinine Clear Calc Drug Dose 78.5 ml/min Estimated GFR () 70.6 Estimated GFR (Non- 60.9 Test 01/30/17 06:30 Range/Units Bedside Glucose 96 70-99 mg/dl ASSESSMENT and PLAN: s/p PEVAR, Ruptured AAA Pt improved significantly. OK for d/c to [facility]. Discussed with hospitalist.
--- NOTE | 2017-01-30 10:10 | Hospitalist Progress Note ---
Hospitalist Progress Note Date of Service Jan 30, 2017. (Vivian Burnett MD) Subjective Pt evaluation today including: conversation w/ patient Voiding: no voiding problems, no incontinence Is doing very well. Ate breakfast. Has been doing stretches better. Denies any pain. BP improved. Constitutional: + weakness, No fever, No chills, No sweats, No weight loss ENT: No hearing loss, No unusual epistaxis Respiratory: No cough, No sputum Abdomen: No pain, No nausea Musculoskeletal: No joint pain Male : No dysuria Neurologic: No memory loss Psychiatric: No depression symptoms Heme: No abnormal bleeding/bruising Endo: No fatigue Skin: No rash All Other Systems: Reviewed and Negative (Vivian Burnett MD) Medications Current Inpatient Medications Medications (Trade) Dose Ordered Sig/Kavya Route Start Time Stop Time Status Last Admin Dose Admin Morphine Sulfate (MoRPHine SULFATE INJ) 4 mg Q2H PRN IV 01/21/17 20:30 02/04/17 20:29 01/29/17 08:14 4 MG Ondansetron HCl (Zofran Inj) 4 mg Q6H PRN IV 01/21/17 20:30 02/20/17 20:29 01/26/17 21:46 4 MG Metoprolol Tartrate (Lopressor Iv) 5 mg Q10M PRN IV 01/21/17 20:30 02/20/17 20:29 01/23/17 05:16 5 MG Glucose (Glucose 40% Gel) 15-30 GRAMS 15 GRAMS... UD PRN PO 01/21/17 22:30 02/20/17 22:29 Glucose (Glucose Chew Tab) 4-8 Tablets 4 Tabl... UD PRN PO 01/21/17 22:30 02/20/17 22:29 Dextrose (Dextrose 50% 50ML Syringe) 25-50ML OF 50% DW IV FOR... UD PRN IV 01/21/17 22:30 02/20/17 22:29 Glucagon (Glucagon Inj) 1 mg UD PRN SQ 01/21/17 22:30 02/20/17 22:29 Simvastatin (Zocor Tab) 20 mg PM PO 01/22/17 21:00 02/21/17 20:59 01/29/17 21:07 20 MG Pantoprazole Sodium (Protonix Tab) 40 mg QAM PO 01/22/17 09:00 02/21/17 08:59 01/30/17 07:48 40 MG Clopidogrel Bisulfate (plAVix TAB) 75 mg QAM PO 01/22/17 10:30 02/21/17 10:29 01/30/17 07:49 75 MG Aspirin (Ecotrin Tab) 81 mg QAM PO 01/22/17 10:30 02/21/17 10:29 01/30/17 07:49 81 MG Prednisone (PredniSONE TAB) 5 mg DAILY PO 01/22/17 10:30 02/21/17 10:29 01/30/17 07:50 5 MG Citalopram Hydrobromide (celeXA TAB) 40 mg DAILY PO 01/22/17 10:30 02/21/17 10:29 01/30/17 07:49 40 MG Docusate Sodium (coLACE CAP) 100 mg DAILY PO 01/22/17 10:30 02/21/17 10:29 01/30/17 07:49 100 MG Folic Acid (Folvite Tab) 1 mg DAILY PO 01/22/17 10:30 02/21/17 10:29 01/30/17 07:48 1 MG Levothyroxine Sodium (Synthroid Tab) 100 mcg DAILYBB PO 01/22/17 10:30 02/21/17 10:29 01/30/17 06:37 100 MCG Multivitamins (Multivitamin Tab) 1 tab QAM PO 01/22/17 10:30 02/21/17 10:29 01/30/17 07:48 1 TAB Acetaminophen (Tylenol Tab) 1,000 mg Q8 PRN PO 01/22/17 11:45 02/21/17 11:44 01/22/17 21:36 1,000 MG Carvedilol (Coreg Tab) 25 mg BID PO 01/23/17 09:00 02/21/17 20:59 01/30/17 07:50 25 MG Bisacodyl (Dulcolax Tab) 5 mg QAM PO 01/24/17 09:00 02/23/17 08:59 01/30/17 07:59 5 MG Oxycodone/ Acetaminophen (Percocet 5-325mg Tab) 1 tab Q4H PRN PO 01/23/17 08:45 02/06/17 08:44 01/29/17 02:18 1 TAB Furosemide (Lasix Tab) 40 mg BID17 PO 01/23/17 17:00 02/22/17 16:59 01/30/17 07:50 40 MG Hydroxychloroquine Sulfate (Plaquenil Tab) 400 mg DAILY PO 01/24/17 09:00 02/23/17 08:59 01/30/17 07:48 400 MG Lisinopril (Zestril Tab) 40 mg DAILY PO 01/24/17 09:00 02/23/17 08:59 01/30/17 07:51 40 MG Nitroglycerin (Nitrostat Tab) 0.4 mg UD PRN SL 01/23/17 10:00 02/22/17 09:59 Potassium Chloride (Klor-Con Tab) 20 meq DAILY PO 01/24/17 09:00 02/23/17 08:59 01/30/17 07:49 20 MEQ Methotrexate (Methotrexate Tab) 25 mg Th@0900 PO 01/29/17 09:00 02/28/17 08:59 01/29/17 08:08 25 MG Enoxaparin Sodium (Lovenox Inj) 40 mg Q12 SQ 01/24/17 10:00 02/23/17 09:59 01/30/17 07:50 40 MG Bisacodyl (Dulcolax Supp) 10 mg DAILY PRN OK 01/25/17 09:15 02/24/17 09:14 Albuterol/ Ipratropium (Duoneb) 3 ml Q4R INH 01/27/17 20:00 02/26/17 19:59 01/30/17 07:11 3 ML Albuterol Sulfate (Ventolin 0.083% 2.5MG/3ML Neb) 2.5 mg Q2R PRN INH 01/27/17 18:30 02/26/17 18:29 Ceftriaxone Sodium 1 gm/ Dextrose 50 ml @ 100 mls/hr DAILY@1800 IV 01/27/17 19:00 02/03/17 18:59 01/29/17 17:21 100 MLS/HR Methylprednisolone Sodium Succinate 20 mg/Syringe 0.32 ml @ 1.5 mls/min Q12H IV 01/28/17 18:00 02/26/17 21:59 01/30/17 06:37 1.5 MLS/MIN Hydralazine HCl (HydrALAZINE INJ) 10 mg Q4H PRN IV. 01/29/17 04:15 02/28/17 04:14 01/29/17 19:16 10 MG Diclofenac Sodium (Voltaren 1% Top Gel) 1 appln Q6H EXT 01/29/17 12:00 02/28/17 11:59 01/30/17 06:37 1 APPLN Nitroglycerin (Nitroglycerin 2% Oint) 1 inch Q6H EXT 01/29/17 12:00 02/28/17 11:59 01/30/17 06:37 1 INCH (Vivian Burnett MD) Objective Vital Signs Date Time Temp Pulse Resp B/P (MAP) Pulse Ox O2 Delivery O2 Flow Rate FiO2 01/30/17 08:18 36.9 64 23 166/101 (122) 91 Room Air 01/30/17 08:00 Nasal Cannula 2.0 01/30/17 07:11 61 18 92 Nasal Cannula 2.0 01/30/17 04:06 36.5 62 18 157/86 (109) 94 BiPAP 01/30/17 04:02 55 22 96 BiPAP/CPAP 30 01/30/17 04:02 55 93 30 01/30/17 04:00 BiPAP 01/29/17 23:59 BiPAP 01/29/17 23:39 36.7 59 18 160/75 (103) 96 BiPAP 01/29/17 23:28 60 18 96 BiPAP/CPAP 30 01/29/17 22:16 65 93 30 01/29/17 20:00 Nasal Cannula 2.0 01/29/17 20:00 166/88 (114) 01/29/17 19:31 59 16 96 Nasal Cannula 3.0 01/29/17 17:15 36.7 62 20 191/95 (127) 96 Nasal Cannula 2.0 01/29/17 16:00 Nasal Cannula 2.0 01/29/17 15:48 64 16 94 Nasal Cannula 3.0 01/29/17 15:05 36.6 59 18 142/61 (88) 95 Nasal Cannula 3.0 01/29/17 12:34 64 112/66 (81) 01/29/17 12:00 Nasal Cannula 2.0 01/29/17 11:37 55 16 97 Nasal Cannula 3.0 01/29/17 11:31 36.7 57 22 190/90 (123) 98 Nasal Cannula 2.0 (Vivian Burnett MD) Physical Exam General Appearance: WD/WN, no apparent distress, + obese Eyes: normal inspection, PERRL ENT: hearing grossly normal Neck: supple, no JVD Respiratory/Chest: lungs clear, normal breath sounds, no respiratory distress Cardiovascular: regular rate, rhythm, no murmur Abdomen: normal bowel sounds, non tender, soft Extremities: non-tender, no pedal edema Neurologic/Psychiatric: alert, normal mood/affect, oriented x 3 Skin: no rash (Vivian Burnett MD) Laboratory Results Last 24 Hours Test 01/29/17 16:20 01/29/17 20:27 01/29/17 22:10 01/30/17 05:15 Bedside Glucose 164 mg/dl 104 mg/dl Urine Color YELLOW Urine Appearance CLEAR Urine pH 7.0 Urine Specific [place] 1.011 Urine Protein NEG Urine Glucose (UA) NEG Urine Ketones NEG Urine Occult Blood 1+ Urine Nitrite NEG Urine Bilirubin NEG Urine Urobilinogen NEG Urine Leukocyte Esterase NEG Urine WBC (Auto) 0 /hpf Urine RBC (Auto) 0-4 /hpf Urine Hyaline Casts (Auto) 1-5 /lpf Urine Epithelial Cells (Auto) 0-5 /lpf Urine Bacteria (Auto) NEG White Blood Count 9.88 K/uL Red Blood Count 4.15 M/uL Hemoglobin 11.5 g/dL Hematocrit 38.6 % Mean Corpuscular Volume 93.0 fL Mean Corpuscular Hemoglobin 27.7 pg Mean Corpuscular Hemoglobin Concent 29.8 g/dl RDW Standard Deviation 55.5 fL RDW Coefficient of Variation 16.4 % Platelet Count 314 K/uL Mean Platelet Volume 9.9 fL Creatinine 1.20 mg/dl Est Creatinine Clear Calc Drug Dose 78.5 ml/min Estimated GFR () 70.6 Estimated GFR (Non- 60.9 Test 01/30/17 06:30 Bedside Glucose 96 mg/dl (Vivian Burnett MD) Diagnostic Results CHEST ONE VIEW PORTABLE 01/29/17 CLINICAL HISTORY: hypoxia COMPARISON STUDY: 01/27/2017 FINDINGS: The heart is enlarged. There is aortic tortuosity. There is no focal pulmonary consolidation. There is no overt failure.[ There are postsurgical changes of midline sternotomy. IMPRESSION: Cardiomegaly. No acute findings. (Vivian Burnett MD) Assessment and Plan 71-year-old male with a past medical history of hypertension, hypothyroidism, hyponatremia, and impaired arthritis, coronary artery disease, 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 Was found to have a ruptured AAA and urgently underwent percutaneous abdominal aortic aneurysm repair with bilateral cannulation Ruptured AAA status post PEVAR - Management per primary team Deconditioning - Would benefit from rehab. Hypertension: Currently on Zestril, Coreg, Lasix - Hydralazine added when necessary every 4 hours if systolic blood pressure more than 160 - Nitropaste every 6 hours if needed Acute and chronic respiratory failure - Untreated obstructive sleep apnea - Continue Solu-Medrol 20 mg every 12 hours, DuoNeb's, Ventolin, Rocephin - CPAP /BiPAP at night Coronary artery disease: - Continue aspirin, Plavix, Coreg, Zestril, Zocor Hyperlipidemia: - Continue Zocor Hypothyroidism: - Continue Synthroid Rheumatoid arthritis - Continue methotrexate, Plaquenil, prednisone DVT prophylaxis: Lovenox Full code Disposition: Agree with dc to [facility]. Discussed with primary team and patient. (Vivian Burnett MD) Resident Physician Supervision Note: I interviewed and examined the patient. Discussed with Dr. Burnett and agree with findings and plan as documented in the note. Any exceptions or clarifications are listed here: None Documented By: Jose Manuel English feeling better, less pain. re demonstrated and performed muscle energy, pt demonstrated ability to do self stretches as well ROS otherwise negative except for as above vitals noted nad breathing unlabored no pallor or icterus, pelvic muscles R buttock area high tone/decreased ROM - better than yesterday - muscle energy x 3 - pt tolerated well and improved HTN improving control - as long as in acceptable range for vascular, no need for escalation in treatment right now -marked elevation yesterday seemst o have been pain related, now improved back pain / SI pain /pelvic somatic dysfunction - improved w OMT, repeat OMT today, self stretches taught. again area of pain fortunately too low to be referred from intraabdominal or aortic pathology (Jose Manuel English D.O.) Resident Tracking Resident Involvement: Resident Care Provided Care Provided: Adult [facility] Medicine (Vivian Burnett MD)
--- NOTE | 2017-01-30 11:16 | PULMONARY PROGRESS NOTE ---
DATE: 01/30/2017 DATE: 01/30/2017. TIME: 10:20 a.m. SUBJECTIVE: The patient feels much better today. He is less short of breath. His cough is much improved. He is not bringing up any phlegm at present. Nursing reports that he has had no problems. He did wear his BiPAP overnight. OBJECTIVE: GENERAL: The patient appears comfortable at rest. VITAL SIGNS: Temperature is 36.9. EARS, NOSE, THROAT: Unchanged from prior. HEART: Rate is 60 beats per minute. The rhythm is regular. LUNGS: Munoz reveal diminished breath sounds, but I hear no wheezes or rhonchi today. Blood pressure this morning was 166/101. Oxygen saturation this morning on room air was 91%. ABDOMEN: Soft. Bowel sounds are present. EXTREMITIES: Revealed no significant edema. LABORATORY DATA: Blood sugar today was 96. No other labs were available from today. IMPRESSIONS: 1. Respiratory failure -- acute on chronic with hypoxia and hypercarbia -- improved. 2. Chronic obstructive pulmonary disease with exacerbation -- improved. 3. Mild atelectasis. 4. Obstructive sleep apnea -- previously untreated. 5. Status post abdominal aortic aneurysm repair. COMMENTS AND RECOMMENDATIONS: The patient is clinically much improved. They are planning on transferring him to [facility]. I have no objective at present from a pulmonary perspective. It is suggested that at [facility] he will be maintained on the BiPAP at its current pressures. The methylprednisolone can be stopped. He may need a relatively short course of tapering prednisone back to his baseline of 5 mg that I believe he was on prior to this hospital stay. I would suggest that he be given 30 mg a day for 2 days, then 20 mg per day for 2 days, then 10 mg per day for 2 days, and then back to his baseline of 5 mg daily. The ceftriaxone can be stopped. I would suggest that he be treated with Ceftin 500 mg b.i.d. for 4 more days. He should be maintained on his nebulizer treatments with DuoNebs q.i.d. regularly rather than p.r.n. Please make certain that the patient has a followup with me soon after his discharge from [facility] so that we can arrange for him to have a sleep study done.
[2017-01-30] MEDS ORDERED: PRED-301 PO (12:37)
[2017-01-30] MEDS ORDERED: PRED10TA PO (12:37)
[2017-01-30] MEDS ORDERED: IPRASOL4 INH (12:37)
[2017-01-30] MEDS ORDERED: CEFU500T16 PO (12:37)
--- NOTE | 2017-02-02 13:59 | DISCHARGE SUMMARY ---
ADMISSION DIAGNOSIS: Ruptured abdominal aortic aneurysm. DISCHARGE DIAGNOSES: 1. Status post percutaneous endovascular aneurysm repair. 2. Ruptured abdominal aortic aneurysm. 3. Respiratory failure. 4. Chronic obstructive pulmonary disease with exacerbation. DISCHARGE CONDITION: Stable to [facility] for rehabilitation. CONSULTATIONS IN THE HOSPITAL: Included: 1. Pulmonology regarding hypoxia and respiratory failure. 2. Medicine with the hospitalist group for management of hypertension. 3. Critical care postoperatively. 4. Urology with Dr. Garcia. PROCEDURES WHILE IN THE HOSPITAL: Included percutaneous endovascular aneurysm repair performed on 01/21/2017 without any significant complications. He did have an EBL of 150 mL out from the procedure. HISTORY OF PRESENT ILLNESS: Mr. Chung is a 71-year-old male who presented to the Emergency Department with a syncopal episode and some upper and mid back pain. He was found ruptured 6 cm abdominal aortic aneurysm and consult was placed for Dr. Fernandez and he recommended for emergency repair of the abdominal aortic aneurysm. This was discussed with the patient's family and they wished to proceed. HOSPITAL COURSE: Mr. Chung was admitted on 01/21/2017 after undergoing his percutaneous endovascular aneurysm repair. He was extubated and doing essentially well. He did continue to have some back pain and edema of his lower extremities. He also complained of some fatigue as well during his hospital stay here. His vital signs remained essentially stable. He was unfortunately unable to be off oxygen due to desaturations to low 80s at that point. Pulmonology was consulted for evaluation and recommendations. Once the patient was stabilized on steroids, BiPAP and antibiotics, he improved significantly. Activity level improved as well. There was also some question of obstructive sleep apnea for which he was to follow up with his family physician after discharge. Due to his deconditioning and major procedure, the patient was felt to be a candidate for inpatient rehab temporarily and postop discharge, he is agreeable to going to [facility] before transitioning to home as his is unable to care for him. He continued to increase activity level and was felt to be stable enough for discharge. PHYSICAL EXAMINATION: VITAL SIGNS: On day of discharge, his vital signs were as follows: Temperature of 37.1, pulse of 68, respiratory rate of 18, blood pressure of 162/89, pulse oximetry of 92% on room air. CONSTITUTIONAL AND GENERAL: The patient is a morbidly obese, chronically ill appearing elderly male in no acute distress. He ambulates slowly with a walker. HEAD: Normocephalic and atraumatic. EYES: EOMI. ENT: Exam demonstrated no hearing loss, rhinorrhea or pharyngeal erythema. NECK: Supple, nontender with a midline trachea without masses or crepitus. LUNGS: Exam demonstrated no dyspnea. They were decreased significantly throughout but were clear bilaterally. CARDIOVASCULAR: Exam demonstrated nondisplaced apical impulse with a regular rate and rhythm without murmurs. His carotid, brachial and radial pulses +3, femoral +2 and lower extremities were nonpalpable, but present with Doppler. He did have some edema of lower extremities. ABDOMEN: Soft, but distended due to body habitus. Back and flank with some mild tenderness noted. EXTREMITIES: Bilateral upper extremities demonstrate no cyanosis, edema, clubbing, varicosities or ulcers. Bilateral lower extremities demonstrate 1-+2 pitting edema. NEUROLOGIC: He was moving all extremities equally and no focal deficits. DIET UPON DISCHARGE: Low-cholesterol, AHA and diabetic diet. MEDICATIONS UPON DISCHARGE: Reconciled in the chart and are as per his discharge instructions. Please pay attention to the changes in respiratory medications and a tapering steroid. DISCHARGE FOLLOWUP: 1. Followup should be with Dr. Fernandez or his PA, Jihan Norris within 2 weeks for reevaluation of his surgical site. 2. Additionally, he is to follow up with Dr. Mauricio Ambrose within 2 weeks or so for reevaluation of his respiratory status and possible evaluation for obstructive sleep apnea. 3. Follow up with his family physician within 2 weeks or so as well. The patient was advised to call our office with any questions or concerns. His was asked to call with any questions as well. Thank you for allowing us to participate in the care of your patient.
== END 2017-01-30 15:59 | DRG 268 ==
LOC: EDBD 15:13 → C.ED 15:15 → C.MSICU 20:26 → C.2T 01-23 20:37
PROVIDERS: ADMIT Surgery Vascular Surgery; ATTEND Surgery Vascular Surgery
PROC: 0T9B70Z Drainage of Bladder with Drainage Device, Via Natural or Artificial Opening (ICD-10-PCS; 2017-01-21)
PROC: 03HY32Z Insertion of Monitoring Device into Upper Artery, Percutaneous Approach (ICD-10-PCS; 2017-01-21)
PROC: 05H533Z Insertion of Infusion Device into Right Subclavian Vein, Percutaneous Approach (ICD-10-PCS; 2017-01-21)
PROC: 5A1935Z Respiratory Ventilation, Less than 24 Consecutive Hours (ICD-10-PCS; 2017-01-21)
PROC: 04V03D6 (ICD-10-PCS; principal; 2017-01-21 16:15)
DX: I71.3 Abdominal aortic aneurysm, ruptured (principal); J96.21 Acute and chronic respiratory failure with hypoxia; K42.0 Umbilical hernia with obstruction, without gangrene; J44.1 Chronic obstructive pulmonary disease with (acute) exacerbation; J98.11 Atelectasis; J96.22 Acute and chronic respiratory failure with hypercapnia; G47.33 Obstructive sleep apnea (adult) (pediatric); R73.03 Prediabetes; I25.10 Atherosclerotic heart disease of native coronary artery without angina pectoris; I10 Essential (primary) hypertension; E78.5 Hyperlipidemia, unspecified; G60.0 Hereditary motor and sensory neuropathy; E03.9 Hypothyroidism, unspecified; M06.9 Rheumatoid arthritis, unspecified; Z95.1 Presence of aortocoronary bypass graft; Z87.891 Personal history of nicotine dependence; Z79.82 Long term (current) use of aspirin

== ENCOUNTER → 2017-03-03 | Outpatient (CLI) | payer OTHER ==
[~2017-03-03] MED LIST changes: -ASPCH81 PO; +ASPI81TA28 PO; +CHOL1000 PO; +CITA40TA4 PO; +CLOP1TAB15 PO; -CLX20 PO; -FLV1 PO; +FOLI1TAB7 PO; -HYDR0.5T PO; +HYDR200T5 PO; -IPRA1AER2 INH; +IPRASOL4 INH; -LISI10TA PO; +LISI40TA PO; +METH2.5T PO; +NTRGSL/4 UT; +OPTIRAY 320 IV PRN; +OXYC-57 PO; -OXYC5TAB PO; +PANT40TA PO; +PRED10TA PO; +SIMV20TA2 PO; -VISIPAQUE IV PRN
--- NOTE | 2017-03-03 14:05 | DIAGNOSTIC IMAGING REPORT ---
ANGIO ABD/PELVIS COMBO CLINICAL HISTORY: Abdominal aortic aneurysm with prior repair on 01/21/2017 follow-up exam. COMPARISON STUDY: Fluoroscopic images from abdominal aortic aneurysm repair 01/21/2017, CT abdomen and pelvis 01/21/2017 TECHNIQUE: Following the IV administration of 119 mL cc of Optiray 320, CT angiogram of the abdomen and pelvis was performed from the lung bases the proximal femora. Images are reviewed in the axial, sagittal, and coronal planes. 3-D MIPS images are created and assessed. IV contrast was administered without complication. CT DOSE: 5359.87 mGy.cm FINDINGS: CTA: The patient is status post aortobiiliac stent placement for repair of infrarenal abdominal aortic aneurysm. The noncontrast scan demonstrates no evidence of intramural hematoma. The inferior mesenteric artery courses through the stent compatible with a type II endoleak. No evidence of graft failure. Flow is seen in the bilateral iliac and femoral arteries. Negative abdominal aortic aneurysm measures up to 5.5 x 5.7 cm in AP and transverse dimension, previously 5.6 x 5.6 cm with study dated 01/21/2017 when measured in a similar fashion. Associated retroperitoneal hematoma has decreased in size comparison study, now measuring approximately 2.8 x 4.8 cm, previously 7.3 x 12.8 cm. Atherosclerotic plaquing at the origin of the renal arteries and mesenteric arteries is again noted without occlusion. There is background moderate to extensive atheroplaquing of the abdominal aorta. CT ABDOMEN AND PELVIS: Subsegmental bibasilar opacities, right greater than left are noted with bronchial wall thickening of the right lung base. Thin-walled cystic changes are present within the right lung base. Inferior cardiac chambers are unremarkable with coronary arterial calcifications noted. Median sternotomy wires are seen. Prior cholecystectomy. The liver, spleen, pancreas and adrenal glands appear normal. Multifocal parenchymal thinning seen throughout the left kidney. Low attenuation of the peripheral left kidney, 9 mm is nonspecific and unchanged suggesting cyst. There are bladder is collapsed. The prostate appears mildly enlarged. There is a small sliding-type hiatal hernia. No bowel obstruction. Stool ball noted within the rectal vault. There are bilateral fat filled hernias. Scattered noninflamed colonic diverticula are seen. Surgical clips are seen along the anterior abdominal wall. The bones appear intact. Multilevel degenerative changes are seen involving the lumbar spine. There is mild atrophy of the right thigh musculature. IMPRESSION: 1. Status post endovascular repair of previously noted ruptured infrarenal abdominal aortic aneurysm. 2. 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 No evidence of graft failure. 3. Decreased size of retroperitoneal hematoma. 4. Bronchial wall thickening of the lung bases with scattered subsegmental bibasilar alveolar opacities suggest pneumonitis with atelectasis. 5. Additional incidental findings as above. The above report was generated using voice recognition software. It may contain grammatical, syntax or spelling errors. Electronically signed by: Manfred Tijerina M.D. 03/03/2017 2:04 PM Dictated Date/Time: 03/03/2017 1:49 PM
== END | disposition home or self-care (01) ==
LOC: C.CTS 12:51
PROVIDERS: ATTEND Surgery Vascular Surgery
DX: Z98.890 Other specified postprocedural states (principal)

== ENCOUNTER → 2017-05-15 | Outpatient (CLI) | payer OTHER ==
[~2017-05-15] MED LIST changes: -OPTIRAY 320 IV PRN
[2017-05-15 13:10] LABS: BASO % 1.2 %; BASO ABS # 0.08 K/uL (0-0.2); COMPLETE YES; EOS % 9.7 %; HEMATOCRIT 38.9 % (42-52); IG% 0.1 %; LYMPH % 14.4 %; LYMPH ABS # 0.97 K/uL (1.2-3.4); MEAN CELL VOLUME 97.5 fL (80-100); MEAN CORPUSCULAR HEMOGLOBIN 30.3 pg (25-34); MEAN CORPUSCULAR HGB CONC 31.1 g/dl (32-36); MEAN PLATELET VOLUME 10.1 fL (7.4-10.4); MONO % 12.2 %; NEUT % 62.4 %; PLATELET COUNT 190 K/uL (130-400); RED BLOOD COUNT 3.99 M/uL (4.7-6.1); WHITE BLOOD COUNT 6.73 K/uL (4.8-10.8)
[2017-05-15 13:30] LABS: ALT/SGPT 28 U/L (12-78); AST/SGOT 23 U/L (15-37)
== END | disposition home or self-care (01) ==
LOC: C.LAB1850 10:18
PROVIDERS: ATTEND Physician Assistant
DX: Z51.81 Encounter for therapeutic drug level monitoring (principal)

== ENCOUNTER 2017-05-18 18:26 | Emergency (ER) | payer OTHER ==
[~2017-05-18] VITALS: Ht 180.3 cm; Wt 133.0 kg
[~2017-05-18 18:26] MED LIST changes: -CHOL1000 PO
[2017-05-18 18:57] VITALS: TEMP 36.6; Ht 180.3 cm; Wt 133.0 kg
[2017-05-18] MEDS ORDERED: SODIUM CHLORIDE 0.9% 250ML 250 ML IV STA (18:59)
[2017-05-18 19:09] LABS: BASO % 1.2 %; BASO ABS # 0.09 K/uL (0-0.2); COMPLETE YES; EOS % 6.4 %; HEMATOCRIT 36.6 % (42-52); IG% 0.1 %; LYMPH % 8.5 %; LYMPH ABS # 0.64 K/uL (1.2-3.4); MEAN CELL VOLUME 97.3 fL (80-100); MEAN CORPUSCULAR HEMOGLOBIN 30.9 pg (25-34); MEAN CORPUSCULAR HGB CONC 31.7 g/dl (32-36); MEAN PLATELET VOLUME 10.2 fL (7.4-10.4); MONO % 5.8 %; PLATELET COUNT 187 K/uL (130-400); RED BLOOD COUNT 3.76 M/uL (4.7-6.1); WHITE BLOOD COUNT 7.53 K/uL (4.8-10.8)
[2017-05-18] MEDS ORDERED: OPTIRAY 320 IV PRN (19:15)
--- NOTE | 2017-05-18 19:16 | EMERGENCY ROOM VISIT NOTE ---
History Report prepared by Albert: González Azevedo Under the Supervision of: Dr. Daryl Tinajero M.D. First contact with patient: 18:28 Chief Complaint: BACK PAIN Stated Complaint: BACK PAIN, NAUSEA, VOMITING, COLD SWEATS History of Present Illness The patient is a 72 year old white male with a past medical history of sleep apnea, NM, CABG, hypertension, CHF, COPD who presents to the ED with a cc of constant back pain beginning at 1600. The patient describes his pain as a burning sensation and reports that it radiates into his legs. He reports that around 1600 he started to experience nausea, three episodes of vomiting, and back pain. The patient states he became febrile and experienced diaphoresis and lightheadedness. He reports that he felt as if he was "going to pass out". He admits that he takes Aspirin, Plavix, and Hydrochloric pill for his hypertension. The patient states that he wears a mask at night for sleep apnea. He reports that he has been having normal bowel movements and urination. The patient reports that he had a repaired aneurysm done by Dr. Abel. Positive intermittent shortness of breath, vomiting, and nausea. Negative trauma , DM, alcohol or tobacco use, chest pain, hematuria, medication changes. Source of History: patient Onset: 1600 Position: back Quality: burning Timing: constant Associated Symptoms: + fevers, + diaphoresis, + SOB, + nausea, + vomiting, No chest pain, No urinary symptoms Review of Systems See HPI for pertinent positives and negatives. A total of ten systems were reviewed and were otherwise negative. Past Medical & Surgical Medical Problems: (1) Acute blood loss as cause of postoperative anemia (2) Borderline diabetes (3) CAD (coronary artery disease) (4) COPD with acute exacerbation (5) HTN (hypertension) (6) Hyperlipidemia (7) Hypothyroidism (8) Remoal of left great toe (9) Rheumatoid arthritis (10) Ventral hernia with bowel obstruction Surgical Problems: (1) Hx of CABG Family History Diabetes mellitus Social History Smoking Status: Former Smoker Drug Use: none Marital Status: Housing Status: lives with significant other Current/Historical Medications Scheduled Aspirin (Aspirin Ec), 81 MG PO QAM Carvedilol (Coreg), 25 MG PO BID Cholecalciferol (Vitamin D3), 5,000 INTER.UNIT PO DAILY Citalopram (Citalopram Hydrobromide), 40 MG PO QAM Clopidogrel (Plavix), 75 MG PO QAM Docusate Sodium (Docusate Sodium), 100 MG PO QAM Folic Acid (Folvite), 1 MG PO QAM Furosemide (Lasix), 40 MG PO BID Hydroxychloroquine Sulfate (Plaquenil), 400 MG PO BID Ipratropium-Albuterol (Duoneb), 3 ML INH Q4R Levothyroxine Sodium (Levothyroxine Sodium), 100 MCG PO DAILY Lisinopril (Zestril), 40 MG PO DAILY Methotrexate (Methotrexate), 25 MG PO WK Multivitamin (Multivitamin), 1 TAB PO QAM Pantoprazole (Protonix), 40 MG PO BID Potassium Ext Rel (Klor-Con), 20 MEQ PO QAM Prednisone (Prednisone), 5 MG PO QAM Simvastatin (Zocor), 20 MG PO QPM Scheduled PRN Nitroglycerin (Nitrostat), 0.4 MG UT UD PRN for Chest Pain Oxycodone/Acetaminophen 5MG/325MG (Percocet 5MG/325MG), 1 TAB PO Q4H PRN for Pain Allergies Coded Allergies: Ranitidine (Verified Allergy, Unknown, UNSURE, 05/18/17) Adhesives (Verified Adverse Reaction, Unknown, TEARING OF SKIN, 05/18/17) Physical Exam Vital Signs Date Time Temp Pulse Resp B/P (MAP) Pulse Ox O2 Delivery O2 Flow Rate FiO2 05/18/17 22:13 61 20 177/87 96 Room Air 05/18/17 21:26 58 95 05/18/17 20:56 55 96 05/18/17 20:26 52 95 05/18/17 20:06 64 20 173/83 96 Room Air 05/18/17 20:05 173/83 05/18/17 18:57 36.6 59 20 161/83 95 Room Air 05/18/17 18:56 54 20 96 05/18/17 18:38 161/83 Physical Exam GENERAL: Awake, alert, well-appearing, NAD, mildly uncomfortable. HENT: Normocephalic, atraumatic. EYES: Normal conjunctiva. Sclera non-icteric. NECK: Supple. No nuchal rigidity. FROM. RESPIRATORY: CTAB, no rhonchi, wheezing, crackles CARDIAC: RRR, no MRG ABDOMEN: Soft, NTND, BS+ MSK: No chest wall TTP. No true reproducible abdominal tenderness or CVA tenderness to palpation. chronic Venous stasis changes in LE trace pedal edema bilaterally. NEURO: GCS 15, CN 2-12 intact, moves all 4s on command SKIN: No rash or jaundice noted. Midline sternotomy scar. Medical Decision & Procedures ER Provider Diagnostic Interpretation: Radiology results as stated below per my review and radiologist interpretation: CHEST ONE VIEW PORTABLE CLINICAL HISTORY: Back pain. Nausea. Vomiting. COMPARISON STUDY: Chest radiograph January 29, 2017. FINDINGS: There are median sternotomy wires. No pneumothorax or pleural effusion is present. Moderate cardiomegaly is unchanged. There is no evidence of pulmonary edema. Mild elevation/eventration of the right hemidiaphragm is noted. IMPRESSION: No acute cardiopulmonary findings. Stable cardiomegaly. No evidence of pulmonary edema. Electronically signed by: Farhan Lynn M.D. 05/18/2017 7:28 PM Dictated Date/Time: 05/18/2017 7:25 PM CHEST COMBO ANGIO DISSECTION CLINICAL HISTORY: Chest pain, back pain, nausea and vomiting. Evaluate for dissection. COMPARISON STUDY: Chest CT January 21, 2017 and chest radiograph performed earlier today. TECHNIQUE: Unenhanced and arterial phase imaging of the chest was performed. Injection of 93 cc Optiray 320 IV was uneventful. Sagittal and coronal reconstructions were viewed as well as maximal intensity projections on an independent 3-D workstation. FINDINGS: There is no evidence of thoracic aortic dissection or hematoma. The caliber of the thoracic aorta is normal. Moderate cardiomegaly is noted. There are median sternotomy wires and changes consistent with bypass grafting. No pneumothorax or pleural effusion is present. Bronchial wall thickening is again noted. This is unchanged. There is no consolidation to suggest pneumonia. Right lower lobe and right middle lobe opacity favors atelectasis. Bony thorax is unremarkable. The abdomen and pelvis will be reported separately. An aortoiliac stent graft is better depicted on that examination. IMPRESSION: 1. No thoracic aortic dissection. 2. No acute intrathoracic findings. 3. Moderate cardiomegaly. 4. No change in bronchial wall thickening since prior studies. No consolidation to suggest pneumonia. Electronically signed by: Farhan Lynn M.D. 05/18/2017 7:57 PM Dictated Date/Time: 05/18/2017 7:38 PM ANGIO ABD/PELVIS WITH CONTRAST CLINICAL HISTORY: 72 years-old Male with PRIOR AAA REPAIR, BACK PAIN acute back pain status post abdominal aortic aneurysm repair. COMPARISON STUDY: CTA abdomen and pelvis 03/03/2017 TECHNIQUE: Following the IV administration of 93 cc of Optiray 320, CT angiogram of the abdomen and pelvis was performed from the lung bases the proximal femora. Images are reviewed in the axial, sagittal, and coronal planes. 3-D MIPS images are created and assessed. IV contrast was administered without complication. A dose lowering technique was utilized adhering to the principles of ALARA. CT DOSE: 3693.75 mGy.cm FINDINGS: The chest portion of the study is dictated separately. CTA ABDOMEN AND PELVIS: Extensive mixed plaquing of the abdominal aorta is present. The celiac trunk, superior mesenteric and renal arteries are patent. Plaquing at the origin of the SMA is again noted causing less than 50% stenosis. Extensive plaquing of the bilateral renal artery origins are again noted with degree of stenosis difficult to quantify but appears less than 50%. This is also unchanged. [place] fusiform abdominal aortic aneurysm of 6.0 x 5.5 cm, previously 6.3 x 5.3 cm is seen with patent aortobiiliac stent graft in place. 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 No evidence of graft failure. Bilateral extrarenal, internal and common iliac arteries appear patent. Image femoral arteries are also patent. Resolving minimal residual hematoma of the right lower pelvis is noted with only minimal soft tissue seen measuring approximately 3.7 x 1.0 cm on image [address] ABDOMEN AND PELVIS: Moderate bronchial wall thickening seen within the bilateral lung bases with nodular and groundglass subsegmental right basilar opacities noted suggesting pneumonitis. Imaged inferior cardiac chambers are moderately enlarged. Coronary arterial calcifications noted. No pneumoperitoneum. Prior cholecystectomy. The liver, spleen, pancreas and adrenal glands are unremarkable. Mild atrophy with cortical thinning is seen within the kidneys bilaterally. 8 mm area of low-attenuation involving the lateral aspect of the interpolar left kidney suggests cyst, unchanged. Urinary bladder is partially collapsed. Coarse calcifications are seen within the central prostate. Moderate fat filled right inguinal hernia. No bulky retroperitoneal adenopathy. No bowel obstruction or focal bowel wall thickening. Colonic diverticulosis without diverticulitis. Patient obesity is noted. Bones are mildly demineralized. Facet arthropathy is noted within the lower lumbar spine. IMPRESSION: 1. Fusiform abdominal aortic aneurysm is again noted with evidence of prior endovascular repair. 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 2. Resolving retroperitoneal hematoma. 3. Moderate bronchial wall thickening of the lung bases with nodular and groundglass right basilar opacities suggesting pneumonitis. 4. Additional incidental findings as above. The above report was generated using voice recognition software. It may contain grammatical, syntax or spelling errors. Electronically signed by: Manfred Tijerina M.D. 05/18/2017 8:02 PM Dictated Date/Time: 05/18/2017 7:47 PM Laboratory Results 05/18/17 18:45 Red Blood Count 3.76, Mean Corpuscular Volume 97.3, Mean Corpuscular Hemoglobin 30.9, Mean Corpuscular Hemoglobin Concent 31.7, Mean Platelet Volume 10.2, Neutrophils (%) (Auto) 78.0, Lymphocytes (%) (Auto) 8.5, Monocytes (%) (Auto) 5.8, Eosinophils (%) (Auto) 6.4, Basophils (%) (Auto) 1.2, Neutrophils # (Auto) 5.87, Lymphocytes # (Auto) 0.64, Monocytes # (Auto) 0.44, Eosinophils # (Auto) 0.48, Basophils # (Auto) 0.09 Test 05/18/17 18:45 05/18/17 18:55 05/18/17 18:57 05/18/17 19:09 White Blood Count 7.53 K/uL (4.8-10.8) Red Blood Count 3.76 M/uL (4.7-6.1) Hemoglobin 11.6 g/dL (14.0-18.0) Hematocrit 36.6 % (42-52) Mean Corpuscular Volume 97.3 fL (80-100) Mean Corpuscular Hemoglobin 30.9 pg (25-34) Mean Corpuscular Hemoglobin Concent 31.7 g/dl (32-36) Platelet Count 187 K/uL (130-400) Mean Platelet Volume 10.2 fL (7.4-10.4) Neutrophils (%) (Auto) 78.0 % Lymphocytes (%) (Auto) 8.5 % Monocytes (%) (Auto) 5.8 % Eosinophils (%) (Auto) 6.4 % Basophils (%) (Auto) 1.2 % Neutrophils # (Auto) 5.87 K/uL (1.4-6.5) Lymphocytes # (Auto) 0.64 K/uL (1.2-3.4) Monocytes # (Auto) 0.44 K/uL (0.11-0.59) Eosinophils # (Auto) 0.48 K/uL (0-0.5) Basophils # (Auto) 0.09 K/uL (0-0.2) RDW Standard Deviation 54.4 fL (36.4-46.3) RDW Coefficient of Variation 15.7 % (11.5-14.5) Immature Granulocyte % (Auto) 0.1 % Immature Granulocyte # (Auto) 0.01 K/uL (0.00-0.02) Total Bilirubin 0.4 mg/dl (0.2-1) Direct Bilirubin mg/dl (0-0.2) Aspartate Amino Transf (AST/SGOT) U/L (15-37) Alanine Aminotransferase (ALT/SGPT) 30 U/L (12-78) Alkaline Phosphatase 63 U/L (45-117) Total Protein 6.4 gm/dl (6.4-8.2) Albumin 3.0 gm/dl (3.4-5.0) Lipase 215 U/L (73-393) Bedside Troponin I < 0.030 ng/ml (0-0.045) Bedside Hemoglobin 11.9 g/dl (14.0-18.0) Bedside Hematocrit 35 % (42-52) Bedside Sodium 142 mEq/L (135-144) Bedside Potassium 3.7 mEq/L (3.3-5.0) Bedside Chloride 102 mEq/L (101-112) Bedside Total CO2 31 mEq/l (24-31) Anion Gap 13.0 mmol/L (16-25) Bedside Blood Urea Nitrogen 35 mg/dl (7-18) Bedside Creatinine 1.4 mg/dl (0.6-1.3) Bedside Glucose (other) 128 mg/dl (70-99) Bedside Ionized Calcium (Sherrie) 1.14 mmol/l (1.12-1.32) Bedside Lactic Acid Venous 1.39 mmol/L (0.90-1.70) Test 05/18/17 19:58 Prothrombin Time 11.0 SECONDS (9.0-12.0) Prothromb Time International Ratio 1.0 (0.9-1.1) Activated Partial Thromboplast Time 24.3 SECONDS (21.0-31.0) Partial Thromboplastin Ratio 0.9 Laboratory results reviewed by me Medications Administered Medications (Trade) Dose Ordered Sig/Kavya Route Start Time Stop Time Status Last Admin Dose Admin Sodium Chloride 250 ml @ 0 mls/hr Q0M STAT IV 05/18/17 18:59 05/18/17 19:02 DC 05/18/17 19:03 0 MLS/HR ECG Indication: back/shoulder pain Rate (beats per minute): 58 Rhythm: sinus bradycardia Findings: other (QRS widening, appears to have Ps before Qs, Normal axis, Some T wave flattening in lateral leads) Comparison ECG Date: 01/26/17 Change: no significant change ED Course 1851: The patient was evaluated in room B07. A complete history and physical exam was performed. 2127: I discussed the patients case with Dr. Younger, [facility]. Medical Decision Differential diagnosis: Etiologies such as appendicitis, diverticulitis, PUD, biliary pathology, UTI, pancreatitis, obstruction, mesenteric ischemia, aortic pathology, infections, inflammatory bowel disease, renal colic, as well as others were entertained. Patient was seen and evaluated at the bedside. Patient symptoms concerning for possible worsening aneurysm, dissection, or throughout procedure. Patient did have blood work EKG, troponin, and CTA of the chest and abdomen completed. Patient did not have any acute bleed. Patient did have some chronic unchanged issues. Patient did have a retroperitoneal hematoma however the specimen seen on 2 prior scans and was improving. Patient is still on aspirin and Plavix. Patient's pain improved. Patient's EKG fairly unchanged however I did speak with the refrigeration installer on-call to ensure that this wasn't some sort of third- degree heart block and did not require a pacemaker. Cardiology agreed that his EKG was unchanged. Given that the patient has no acute lab abnormalities with a fairly unchanged CTA without any worsening changes I gave the patient strict follow-up, discharge, and return precautions. Patient and family agreed with plan of care patient was safely discharged home. Medication Reconcilliation Current Medication List: was personally reviewed by me Blood Pressure Screening Patient's blood pressure: Elevated blood pressure Blood pressure disposition: Referred to PCP Consults Time Called: 2127 Consulting Physician: Dr. Younger, [facility] Returned Call: [phone] I discussed the patients case with Dr. Younger, [facility]. Impression Primary Impression: Abdominal pain Scribe Attestation The scribe's documentation has been prepared under my direction and personally reviewed by me in its entirety. I confirm that the note above accurately reflects all work, treatment, procedures, and medical decision making performed by me. Departure Information Dispostion Home / Self-Care Referrals Qian Talley PA-C (PCP) Patient Instructions Abdominal Pain, My [facility] Additional Instructions Please return to the emergency department if you have worsening or recurrent symptoms not amenable to at-home treatment. Please call for a follow-up appointment with her primary care physician. Please take your medications as prescribed. If you have other concerns and/or complaints please feel free to also call your primary care physician's office or return the ED for further evaluation, management, and treatment. You have been examined and treated today on an emergency basis only. This is not a substitute for, or an effort to provide, complete comprehensive medical care. It is impossible to recognize and treat all injuries or illnesses in a single emergency department visit. It is therefore important that you follow up closely with [facility]. Call as soon as possible for an appointment. Thank you for your time and consideration. I look forward to speaking with you again soon. Please don't hesitate to call us if you have any questions. Problem Qualifiers Primary Impression: Abdominal pain Abdominal location: generalized Qualified Codes: R10.84 - Generalized abdominal pain
[2017-05-18 19:25] LABS: ALKALINE PHOSPHATASE 63 U/L (45-117); ALT/SGPT 30 U/L (12-78)
--- NOTE | 2017-05-18 19:30 | DIAGNOSTIC IMAGING REPORT ---
CHEST ONE VIEW PORTABLE CLINICAL HISTORY: Back pain. Nausea. Vomiting. COMPARISON STUDY: Chest radiograph January 29, 2017. FINDINGS: There are median sternotomy wires. No pneumothorax or pleural effusion is present. Moderate cardiomegaly is unchanged. There is no evidence of pulmonary edema. Mild elevation/eventration of the right hemidiaphragm is noted. IMPRESSION: No acute cardiopulmonary findings. Stable cardiomegaly. No evidence of pulmonary edema. Electronically signed by: Farhan Lynn M.D. 05/18/2017 7:28 PM Dictated Date/Time: 05/18/2017 7:25 PM
[2017-05-18 19:50] LABS: ISTAT CREATININE 1.4 mg/dl (0.6-1.3); ISTAT HEMOGLOBIN 11.9 g/dl (14.0-18.0); ISTAT IONIZED CALCIUM 1.14 mmol/l (1.12-1.32)
--- NOTE | 2017-05-18 19:58 | DIAGNOSTIC IMAGING REPORT ---
CHEST COMBO ANGIO DISSECTION CLINICAL HISTORY: Chest pain, back pain, nausea and vomiting. Evaluate for dissection. COMPARISON STUDY: Chest CT January 21, 2017 and chest radiograph performed earlier today. TECHNIQUE: Unenhanced and arterial phase imaging of the chest was performed. Injection of 93 cc Optiray 320 IV was uneventful. Sagittal and coronal reconstructions were viewed as well as maximal intensity projections on an independent 3-D workstation. FINDINGS: There is no evidence of thoracic aortic dissection or hematoma. The caliber of the thoracic aorta is normal. Moderate cardiomegaly is noted. There are median sternotomy wires and changes consistent with bypass grafting. No pneumothorax or pleural effusion is present. Bronchial wall thickening is again noted. This is unchanged. There is no consolidation to suggest pneumonia. Right lower lobe and right middle lobe opacity favors atelectasis. Bony thorax is unremarkable. The abdomen and pelvis will be reported separately. An aortoiliac stent graft is better depicted on that examination. IMPRESSION: 1. No thoracic aortic dissection. 2. No acute intrathoracic findings. 3. Moderate cardiomegaly. 4. No change in bronchial wall thickening since prior studies. No consolidation to suggest pneumonia. Electronically signed by: Farhan Lynn M.D. 05/18/2017 7:57 PM Dictated Date/Time: 05/18/2017 7:38 PM
--- NOTE | 2017-05-18 20:03 | DIAGNOSTIC IMAGING REPORT ---
ANGIO ABD/PELVIS WITH CONTRAST CLINICAL HISTORY: 72 years-old Male with PRIOR AAA REPAIR, BACK PAIN acute back pain status post abdominal aortic aneurysm repair. COMPARISON STUDY: CTA abdomen and pelvis 03/03/2017 TECHNIQUE: Following the IV administration of 93 cc of Optiray 320, CT angiogram of the abdomen and pelvis was performed from the lung bases the proximal femora. Images are reviewed in the axial, sagittal, and coronal planes. 3-D MIPS images are created and assessed. IV contrast was administered without complication. A dose lowering technique was utilized adhering to the principles of ALARA. CT DOSE: 3693.75 mGy.cm FINDINGS: The chest portion of the study is dictated separately. CTA ABDOMEN AND PELVIS: Extensive mixed plaquing of the abdominal aorta is present. The celiac trunk, superior mesenteric and renal arteries are patent. Plaquing at the origin of the SMA is again noted causing less than 50% stenosis. Extensive plaquing of the bilateral renal artery origins are again noted with degree of stenosis difficult to quantify but appears less than 50%. This is also unchanged. Eyak fusiform abdominal aortic aneurysm of 6.0 x 5.5 cm, previously 6.3 x 5.3 cm is seen with patent aortobiiliac stent graft in place. 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 No evidence of graft failure. Bilateral extrarenal, internal and common iliac arteries appear patent. Image femoral arteries are also patent. Resolving minimal residual hematoma of the right lower pelvis is noted with only minimal soft tissue seen measuring approximately 3.7 x 1.0 cm on image [address] ABDOMEN AND PELVIS: Moderate bronchial wall thickening seen within the bilateral lung bases with nodular and groundglass subsegmental right basilar opacities noted suggesting pneumonitis. Imaged inferior cardiac chambers are moderately enlarged. Coronary arterial calcifications noted. No pneumoperitoneum. Prior cholecystectomy. The liver, spleen, pancreas and adrenal glands are unremarkable. Mild atrophy with cortical thinning is seen within the kidneys bilaterally. 8 mm area of low-attenuation involving the lateral aspect of the interpolar left kidney suggests cyst, unchanged. Urinary bladder is partially collapsed. Coarse calcifications are seen within the central prostate. Moderate fat filled right inguinal hernia. No bulky retroperitoneal adenopathy. No bowel obstruction or focal bowel wall thickening. Colonic diverticulosis without diverticulitis. Patient obesity is noted. Bones are mildly demineralized. Facet arthropathy is noted within the lower lumbar spine. IMPRESSION: 1. Fusiform abdominal aortic aneurysm is again noted with evidence of prior endovascular repair. 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 2. Resolving retroperitoneal hematoma. 3. Moderate bronchial wall thickening of the lung bases with nodular and groundglass right basilar opacities suggesting pneumonitis. 4. Additional incidental findings as above. The above report was generated using voice recognition software. It may contain grammatical, syntax or spelling errors. Electronically signed by: Manfred Tijerina M.D. 05/18/2017 8:02 PM Dictated Date/Time: 05/18/2017 7:47 PM
[2017-05-18] MEDS ORDERED: CHOL1000 PO (20:18)
[2017-05-18 20:25] LABS: PARTIAL THROMBOPLASTIN RATIO 0.9
[2017-05-18 22:13] VITALS: BP 177/87; PULSE 61; O2SAT 96
== END 2017-05-18 22:15 | disposition home or self-care (01) ==
LOC: EDBD 18:26 → C.EDB 18:27
DX: R10.84 Generalized abdominal pain (principal); G47.30 Sleep apnea, unspecified; I25.2 Old myocardial infarction; J44.9 Chronic obstructive pulmonary disease, unspecified; I25.10 Atherosclerotic heart disease of native coronary artery without angina pectoris; I11.0 Hypertensive heart disease with heart failure; E03.9 Hypothyroidism, unspecified; M06.9 Rheumatoid arthritis, unspecified; R11.2 Nausea with vomiting, unspecified; Z95.1 Presence of aortocoronary bypass graft; Z83.3 Family history of diabetes mellitus; Z87.891 Personal history of nicotine dependence; Z79.82 Long term (current) use of aspirin; Z79.02 Long term (current) use of antithrombotics/antiplatelets; Z79.899 Other long term (current) drug therapy

== ENCOUNTER 2017-07-13 06:43 | Emergency (ER) | payer OTHER ==
[~2017-07-13] VITALS: Ht 180.3 cm; Wt 142.2 kg
[~2017-07-13 06:43] MED LIST changes: +CHOL1000 PO; -PRED10TA PO
[2017-07-13 06:44] VITALS: TEMP 36.5; Ht 180.3 cm; Wt 142.2 kg
[2017-07-13 07:20] VITALS: O2SAT 95
--- NOTE | 2017-07-13 07:21 | EMERGENCY ROOM VISIT NOTE ---
History Report prepared by Albert: Charlotte Santos Under the Supervision of: Dr. Edgar Bruner M.D. First contact with patient: 06:52 Chief Complaint: SHORTNESS OF BREATH Stated Complaint: BREATHING DIFFICULTY Nursing Triage Summary: Pt brought in by EMS. Pt History of Present Illness The patient is a 72 year old male who presents to the Emergency Room with complaints of persistent shortness of breath that began last night. The patient notes that he had fever, chills, and diaphoresis throughout the night. The patient reports chest pain when he coughs, but denies any other pain. He denies any abnormal swelling in the legs or abdominal pain. The patient notes a history of pneumonia. He notes a history of smoking, but states that he quit several years ago. Source of History: patient Onset: Last night Position: other (global ) Quality: other (shortness of breath) Timing: other (persistent ) Associated Symptoms: + fevers, + chills, + diaphoresis, + cough, + chest pain (When coughing), No abdominal pain Review of Systems All systems have been listed, reviewed, and are negative other than those previously mentioned. Please see Additional Medical History Sheet. Past Medical & Surgical Medical Problems: (1) Acute blood loss as cause of postoperative anemia (2) Borderline diabetes (3) CAD (coronary artery disease) (4) COPD with acute exacerbation (5) HTN (hypertension) (6) Hyperlipidemia (7) Hypothyroidism (8) Remoal of left great toe (9) Rheumatoid arthritis (10) Ventral hernia with bowel obstruction Surgical Problems: (1) Hx of CABG Family History Diabetes mellitus Hypertension Social History Smoking Status: Former Smoker Alcohol Use: none Drug Use: none Marital Status: Housing Status: lives with significant other Current/Historical Medications Scheduled Aspirin (Aspirin Ec), 81 MG PO QAM Carvedilol (Coreg), 25 MG PO BID Cholecalciferol (Vitamin D), 5,000 UNITS PO QAM Citalopram (Citalopram Hydrobromide), 40 MG PO QAM Clopidogrel (Plavix), 75 MG PO QAM Docusate Sodium (Docusate Sodium), 100 MG PO QAM Folic Acid (Folvite), 1 MG PO QAM Furosemide (Lasix), 40 MG PO BID Hydroxychloroquine Sulfate (Plaquenil), 200 PO BID Ipratropium-Albuterol (Combivent Respimat), 1 PUFFS INH QID Levothyroxine Sodium (Levothyroxine Sodium), 100 MCG PO DAILY Lisinopril (Zestril), 40 MG PO DAILY Methotrexate (Methotrexate), 25 MG PO WK Multivitamin (Multivitamin), 1 TAB PO QAM Pantoprazole (Protonix), 40 MG PO BID Potassium Ext Rel (Klor-Con), 20 MEQ PO QAM Prednisone (Prednisone), 5 MG PO QAM Prednisone (Prednisone), 20 MG PO BID Simvastatin (Zocor), 20 MG PO QPM Scheduled PRN Nitroglycerin (Nitrostat), 0.4 MG UT UD PRN for Chest Pain Allergies Coded Allergies: Ranitidine (Verified Allergy, Unknown, UNSURE, 07/13/17) Adhesives (Verified Adverse Reaction, Unknown, TEARING OF SKIN, 07/13/17) Physical Exam Vital Signs Date Time Temp Pulse Resp B/P (MAP) Pulse Ox O2 Delivery O2 Flow Rate FiO2 07/13/17 10:03 77 22 181/121 93 Room Air 07/13/17 09:04 68 20 176/92 94 Nebulizer 07/13/17 08:23 68 20 92 Nasal Cannula 3.0 07/13/17 07:20 95 Nasal Cannula 2.0 07/13/17 07:20 69 24 198/108 95 Nasal Cannula 2.0 07/13/17 06:56 92 Nasal Cannula 2.0 07/13/17 06:55 92 07/13/17 06:54 73 07/13/17 06:45 94 Room Air 07/13/17 06:44 36.5 71 24 194/101 95 Room Air Physical Exam GENERAL: Patient awake, alert, oriented x 3. Patient follows commands. Patient does not appear toxic. Patient is adequately hydrated and well- nourished. SKIN: No erythema, pallor, cyanosis or rash HEENT: Normal head, pupils equal, reactive to light and accommodation. Oral cavity and posterior pharynx appear normal. Neck: Without adenopathy, no neck vein distention. Mucous membranes dry. LUNGS: Crackles and wheezes in both lungs bilaterally HEART: No murmurs. No gallops. No rubs ABDOMEN: No masses, no rebound, no hepatomegaly or splenomegaly. Obese. EXTREMITIES: No signs of trauma. Stasis changes to lower legs. No significant edema. No calf or thigh tenderness. NEUROLOGIC: Cranial nerves II-XII within normal limits. No gross motor sensory function deficits. Medical Decision & Procedures ER Provider Diagnostic Interpretation: Radiology results as stated below per my review and radiologist interpretation: CHEST 2 VIEWS ROUTINE HISTORY: 72 years-old Male sob acute shortness of breath COMPARISON: Chest radiograph 05/18/2017 and CTA 05/18/2017 TECHNIQUE: Frontal and lateral views of the chest FINDINGS: Heart is moderately enlarged, unchanged. Atherosclerosis of the aorta. Prior median sternotomy. Several of the sternotomy wires are fractured, unchanged. No pneumothorax. Mild right hemidiaphragmatic elevation is unchanged. No pneumothorax, pleural effusion, focal airspace consolidation or overt pulmonary edema. Linear subsegmental opacities of the bilateral lung bases are unchanged suggesting areas of atelectasis and/or scarring with mild bibasilar bronchial wall thickening which is also unchanged suggesting bronchitis. Bones of the chest are grossly intact. Degenerative changes involve the shoulders and spine. IMPRESSION: 1. Cardiomegaly without acute cardiopulmonary process. 2. Unchanged bibasilar bronchial wall thickening with areas of linear subsegmental bibasilar opacities suggesting atelectasis or scarring. The above report was generated using voice recognition software. It may contain grammatical, syntax or spelling errors. Electronically signed by: Manfred Tijerina M.D. 07/13/2017 7:56 AM Laboratory Results 07/13/17 07:20 Red Blood Count 3.72, Mean Corpuscular Volume 98.1, Mean Corpuscular Hemoglobin 31.5, Mean Corpuscular Hemoglobin Concent 32.1, Mean Platelet Volume 10.2, Neutrophils (%) (Auto) 82.7, Lymphocytes (%) (Auto) 9.3, Monocytes (%) (Auto) 3.0, Eosinophils (%) (Auto) 3.8, Basophils (%) (Auto) 1.0, Neutrophils # (Auto) 7.41, Lymphocytes # (Auto) 0.83, Monocytes # (Auto) 0.27, Eosinophils # (Auto) 0.34, Basophils # (Auto) 0.09 07/13/17 07:20 Test 07/13/17 07:20 White Blood Count 8.96 K/uL (4.8-10.8) Red Blood Count 3.72 M/uL (4.7-6.1) Hemoglobin 11.7 g/dL (14.0-18.0) Hematocrit 36.5 % (42-52) Mean Corpuscular Volume 98.1 fL (80-100) Mean Corpuscular Hemoglobin 31.5 pg (25-34) Mean Corpuscular Hemoglobin Concent 32.1 g/dl (32-36) Platelet Count 186 K/uL (130-400) Mean Platelet Volume 10.2 fL (7.4-10.4) Neutrophils (%) (Auto) 82.7 % Lymphocytes (%) (Auto) 9.3 % Monocytes (%) (Auto) 3.0 % Eosinophils (%) (Auto) 3.8 % Basophils (%) (Auto) 1.0 % Neutrophils # (Auto) 7.41 K/uL (1.4-6.5) Lymphocytes # (Auto) 0.83 K/uL (1.2-3.4) Monocytes # (Auto) 0.27 K/uL (0.11-0.59) Eosinophils # (Auto) 0.34 K/uL (0-0.5) Basophils # (Auto) 0.09 K/uL (0-0.2) RDW Standard Deviation 53.0 fL (36.4-46.3) RDW Coefficient of Variation 15.2 % (11.5-14.5) Immature Granulocyte % (Auto) 0.2 % Immature Granulocyte # (Auto) 0.02 K/uL (0.00-0.02) Anion Gap 9.0 mmol/L (3-11) Est Creatinine Clear Calc Drug Dose 79.5 ml/min Estimated GFR () 68.0 Estimated GFR (Non- 58.7 BUN/Creatinine Ratio 16.0 (10-20) Lactic Acid Level 1.2 mmol/L (0.4-2.0) Calcium Level 8.5 mg/dl (8.5-10.1) Total Bilirubin 0.6 mg/dl (0.2-1) Aspartate Amino Transf (AST/SGOT) 34 U/L (15-37) Alanine Aminotransferase (ALT/SGPT) 36 U/L (12-78) Alkaline Phosphatase 61 U/L (45-117) Troponin I 0.030 ng/ml (0-0.045) Total Protein 6.4 gm/dl (6.4-8.2) Albumin 2.8 gm/dl (3.4-5.0) Globulin 3.6 gm/dl (2.5-4.0) Albumin/Globulin Ratio 0.8 (0.9-2) Laboratory results as stated above per my review. Medications Administered Medications (Trade) Dose Ordered Sig/Kavya Route Start Time Stop Time Status Last Admin Dose Admin Albuterol/ Ipratropium (Duoneb) 12 ml ONE ONCE INH 07/13/17 08:15 07/13/17 08:16 DC 07/13/17 08:22 12 ML Prednisone (PredniSONE TAB) 40 mg NOW STAT PO 07/13/17 10:02 07/13/17 10:04 DC 07/13/17 10:08 40 MG ECG Indication: SOB/dyspnea (shortness of breath ) Rate (beats per minute): 72 Rhythm: sinus rhythm Findings: 1st degree AV block, nonspecific-ST abn, PVC (Occasional) Comparison ECG Date: 05/18/17 Change: When compared to EKG done on 05/18/17, more PVCs are now present ED Course 0653: Past medical records reviewed. The patient was evaluated in room A12. A complete history and physical examination was performed. 0815: Ordered Duoneb 12ml INH. 0921: I reevaluated the patient who was resting comfortably. The patient does not have wheezes and has finished his breathing treatment. He is feeling a little better. 0958: I reevaluated the patient who was resting comfortably. 1002: Ordered Prednisone 40mg PO. 1050: I reevaluated the patient and he is resting comfortably. I discussed the exam findings with him and I discussed the treatment plan. He verbalized complete understanding and agreement. He is ready to go home. Medical Decision Nurses notes reviewed. Medical history sheet reviewed. Differential diagnosis includes but is not limited to: Pneumonia, Bronchitis, Congestive Heart Failure , Pulmonary Embolism, Pulmonary Edema. Multiple labs, EKG and imaging were obtained. Please see above. EKG and chest x-ray are not significantly changed from past. Patient cleared wheezes with an hour-long breathing treatment. Patient was also given prednisone. Patient felt significantly better and was felt stable for discharge. The patient was encouraged to continue using his Combivent regularly. Patient will have his prednisone increased at home. He is he is to follow-up with his physician. Medication Reconcilliation Current Medication List: was personally reviewed by me Blood Pressure Screening Patient's blood pressure: Elevated blood pressure Blood pressure disposition: Referred to PCP Impression Primary Impression: COPD with acute exacerbation Additional Impression: HTN (hypertension) Scribe Attestation The scribe's documentation has been prepared under my direction and personally reviewed by me in its entirety. I confirm that the note above accurately reflects all work, treatment, procedures, and medical decision making performed by me. Departure Information Dispostion Home / Self-Care Prescriptions Prednisone (Prednisone) 20 Mg Tab 20 MG PO BID for 5 Days, #10 TAB Prov: Edgar Bruner M.D. 07/13/17 Referrals No Doctor, Assigned (PCP) Forms HOME CARE DOCUMENTATION FORM, IMPORTANT VISIT INFORMATION Patient Instructions My [facility] Additional Instructions You may use your Combivent every 6 hours as needed for shortness of breath/ wheezing. 20 mg of prednisone twice a day for 5 days. Continue all of your current medications as prescribed except prednisone. Follow-up with your family physician this week. Problem Qualifiers
[2017-07-13 07:41] LABS: BASO ABS # 0.09 K/uL (0-0.2); COMPLETE YES; EOS % 3.8 %; HEMATOCRIT 36.5 % (42-52); IG% 0.2 %; LYMPH % 9.3 %; LYMPH ABS # 0.83 K/uL (1.2-3.4); MEAN CELL VOLUME 98.1 fL (80-100); MEAN CORPUSCULAR HEMOGLOBIN 31.5 pg (25-34); MEAN CORPUSCULAR HGB CONC 32.1 g/dl (32-36); MEAN PLATELET VOLUME 10.2 fL (7.4-10.4); NEUT % 82.7 %; PLATELET COUNT 186 K/uL (130-400); RED BLOOD COUNT 3.72 M/uL (4.7-6.1); WHITE BLOOD COUNT 8.96 K/uL (4.8-10.8)
--- NOTE | 2017-07-13 07:57 | DIAGNOSTIC IMAGING REPORT ---
CHEST 2 VIEWS ROUTINE HISTORY: 72 years-old Male sob acute shortness of breath COMPARISON: Chest radiograph 05/18/2017 and CTA 05/18/2017 TECHNIQUE: Frontal and lateral views of the chest FINDINGS: Heart is moderately enlarged, unchanged. Atherosclerosis of the aorta. Prior median sternotomy. Several of the sternotomy wires are fractured, unchanged. No pneumothorax. Mild right hemidiaphragmatic elevation is unchanged. No pneumothorax, pleural effusion, focal airspace consolidation or overt pulmonary edema. Linear subsegmental opacities of the bilateral lung bases are unchanged suggesting areas of atelectasis and/or scarring with mild bibasilar bronchial wall thickening which is also unchanged suggesting bronchitis. Bones of the chest are grossly intact. Degenerative changes involve the shoulders and spine. IMPRESSION: 1. Cardiomegaly without acute cardiopulmonary process. 2. Unchanged bibasilar bronchial wall thickening with areas of linear subsegmental bibasilar opacities suggesting atelectasis or scarring. The above report was generated using voice recognition software. It may contain grammatical, syntax or spelling errors. Electronically signed by: Manfred Tijerina M.D. 07/13/2017 7:56 AM Dictated Date/Time: 07/13/2017 7:53 AM
[2017-07-13 08:00] LABS: CALCIUM 8.5 mg/dl (8.5-10.1); CREATININE 1.23 mg/dl (0.60-1.40); POTASSIUM 3.7 mmol/L (3.5-5.1)
[2017-07-13 08:05] LABS: ALB/GLOB RATIO 0.8 (0.9-2)
[2017-07-13] MEDS ORDERED: ALBUT/IPRATROP 3MG/0.5MG NEB 3 ML VIAL INH ONE (08:15)
[2017-07-13 08:23] VITALS: PULSE 68; O2SAT 92
[2017-07-13] MEDS ORDERED: CHOL1TAB42 PO (09:39)
[2017-07-13] MEDS ORDERED: PRED-301 PO (09:39)
[2017-07-13] MEDS ORDERED: IPRA1AER2 INH (09:39)
[2017-07-13 10:03] VITALS: BP 181/121; PULSE 77; O2SAT 93
[2017-07-13] MEDS ORDERED: PRED20TA PO (10:09)
== END 2017-07-13 11:04 | disposition home or self-care (01) ==
LOC: EDBD 06:43 → C.EDA 06:44
DX: J44.1 Chronic obstructive pulmonary disease with (acute) exacerbation (principal); I10 Essential (primary) hypertension; Z87.01 Personal history of pneumonia (recurrent); Z87.891 Personal history of nicotine dependence; R73.03 Prediabetes; I25.10 Atherosclerotic heart disease of native coronary artery without angina pectoris; E78.5 Hyperlipidemia, unspecified; E03.9 Hypothyroidism, unspecified; M06.9 Rheumatoid arthritis, unspecified; Z95.1 Presence of aortocoronary bypass graft; Z83.3 Family history of diabetes mellitus; Z82.49 Family history of ischemic heart disease and other diseases of the circulatory system; Z79.02 Long term (current) use of antithrombotics/antiplatelets; Z79.82 Long term (current) use of aspirin; Z79.899 Other long term (current) drug therapy